=== PATIENT | female | born 1970 | race Caucasian/White ===

== ENCOUNTER 2016-05-17 05:27 | Emergency (ER) | payer MEDICARE, OTHER ==
[2016-05-17] MEDS ORDERED: NS 0.9% 1000 ML* 1,000 ML IV ONE (06:01)
[2016-05-17] MEDS ORDERED: HYDROmorphone* 1 MG/ML 1 ML SYR IV ONE ×3 (06:01→09:30)
--- NOTE | 2016-05-17 06:22 | ED ---
Hai Curry Benjamin, scribed for Ricardo Manzano MD on 05/17/16 at 0604 . Headache - HPI Summary HPI Summary: 45yo female c/o migraine like MEZA since . Pt sometimes get intractable migraines and pt usually takes Imitrex for her pain. Pt also felt nauseous but now nausea is gone. also photophobic. - History Of Current Complaint Chief Complaint: EDHeadache Stated Complaint: HEADACHE Time Seen by Provider: 05/17/16 05:58 Hx Obtained From: Patient Onset/Duration: Gradual Onset, Started days ago, Still Present Initially Headache Was: Severe Currently Pain Is: Severe Timing: Constant Character: Migraine Location of Headache: Diffuse Aggravating Factor: Bright Lights Allevating Factors: Nothing Associated Signs And Symptoms: Nausea - Allergies/Home Medications Allergies/Adverse Reactions: Allergies Allergy/AdvReac Type Severity Reaction Status Date / Time Tramadol Allergy Intermediate joint Verified 05/17/16 05:35 swelling Diphenhydramine Allergy extreme Verified 05/17/16 05:35 [From Benadryl] skin sensitivity Ciprofloxacin [From Cipro] AdvReac Intermediate Abdominal Verified 05/17/16 05: 35 Pain Gabapentin [From Neurontin] AdvReac Intermediate muscles Verified 05/17/16 05:35 burning NSAIDs AdvReac Intermediate gastritis Verified 05/17/16 05:35 Pregabalin [From Lyrica] AdvReac Intermediate muscles Verified 05/17/16 05:35 burning Ketorolac Tromethamine AdvReac Muscle Ache Verified 05/17/16 05:35 [From Toradol] PMH/Surg Hx/FS Hx/Imm Hx Endocrine/Hematology History: Reports: Hx Thyroid Disease Denies: Hx Diabetes Cardiovascular History: Denies: Hx Hypertension, Hx Pacemaker/ICD Respiratory History: Reports: Hx Asthma Denies: Hx Chronic Obstructive Pulmonary Disease (COPD) GI History: Denies: Hx Ulcer History: Reports: Other Problems/Disorders - stress incontinence Denies: Hx Renal Disease Musculoskeletal History: Denies: Hx Rheumatoid Arthritis, Hx Osteoporosis, Hx Scoliosis Sensory History: Denies: Hx Hearing Aid Neurological History: Reports: Hx Headaches - migranes, Hx Migraine, Other Neuro Impairments/Disorders - CHRONIC MIGRAINES Psychiatric History: Reports: Hx Anxiety, Hx Depression Denies: Hx Panic Disorder - Surgical History Surgery Procedure, Year, and Place: bladder surgery, HYSTERECTOMY, LUMP REMOVED RT BREAST ATYPICAL,APPY 2006 - Immunization History Date of Tetanus Vaccine: pt states unsure Date of Influenza Vaccine: none Infectious Disease History: No Infectious Disease History: Denies: Hx Clostridium Difficile, Hx Hepatitis, Hx Human Immunodeficiency Virus (HIV), Hx of Known/Suspected MRSA, Hx Shingles, Hx Tuberculosis, Traveled Outside the [place] in Last 30 Days - Family History Known Family History: Negative: Cardiac Disease, Diabetes - Social History Alcohol Use: None Substance Use Type: Reports: None Smoking Status (MU): Former Smoker Review of Systems Constitutional: Negative Positive: Photophobia ENT: Negative Cardiovascular: Negative Respiratory: Negative Positive: Nausea. Negative: Abdominal Pain Genitourinary: Negative Musculoskeletal: Negative Skin: Negative Positive: Headache Psychological: Normal All Other Systems Reviewed And Are Negative: Yes Physical Exam Triage Information Reviewed: Yes Vital Signs On Initial Exam: Initial Vitals Temp Pulse Resp BP Pulse Ox 96.9 F 69 18 98/75 100 05/17/16 05:35 05/17/16 05:35 05/17/16 05:35 05/17/16 05:35 05/17/16 05:35 Vital Signs Reviewed: Yes Appearance: Positive: Well-Appearing, Pain Distress - mild discomfort, mild photophobia Skin: Positive: Warm Head/Face: Positive: Normal Head/Face Inspection. Negative: Temporal Artery Tenderness Eyes: Positive: EOMI, KEKE, Conjunctiva Clear ENT: Positive: Hearing grossly normal Neck: Positive: Supple, Nontender Respiratory/Lung Sounds: Positive: Breath Sounds Present Cardiovascular: Positive: RRR Abdomen Description: Positive: Nontender, Soft Bowel Sounds: Positive: Present Musculoskeletal: Positive: Strength/ROM Intact Neurological: Positive: Sensory/Motor Intact, Alert, Oriented to Person Place, Time Diagnostics - Vital Signs Vital Signs Temp Pulse Resp BP Pulse Ox 05/17/16 05:35 96.9 F 69 18 98/75 100 - Laboratory Result Diagrams: 05/17/16 07:34 05/17/16 07:34 Lab Statement: Any lab studies that have been ordered have been reviewed, and results considered in the medical decision making process. Re-Evaluation - Re-Evaluation First Eval Change: Improved Headache Course/Dx - Diagnoses Provider Diagnoses: MIGRAINE HEADACHE Discharge - Discharge Plan Condition: Stable Disposition: HOME Patient Education Materials: Migraine Headache (ED) Referrals: Ilana Decker MD [Primary Care Provider] - 2 Days Additional Instructions: Please follow-up with your primary care physician. The documentation as recorded by the Hai dave Benjamin accurately reflects the service I personally performed and the decisions made by me, Ricardo Manzano MD.
[2016-05-17] MEDS ORDERED: Ondansetron INJ* 2 MG/ML VIAL IV ONE ×2 (07:31→09:30)
[2016-05-17 07:43] LABS: Hematocrit 38 % (35-47); Hemoglobin 13.1 g/dl (12.0-16.0); Mean Corpuscular HGB Conc 34 g/dl (31-36); Mean Corpuscular Hemoglobin 33 pg (27-31); Mean Corpuscular Volume 97 fL (80-97); Mean Platelet Volume 9 um3 (7.4-10.4); Red Blood Count 3.93 10^6/ul (4.0-5.4); Red Cell Distribution Width 13 % (10.5-15); White Blood Count 5.1 10^3/ul (3.5-10.8)
[2016-05-17 08:00] LABS: Albumin 3.4 g/dL (3.2-5.2); BUN/Creatinine Ratio 19.7 (8-20); Calcium 7.7 mg/dL (8.6-10.3); EGFR African American 114.5 (>60); Potassium 3.6 mmol/L (3.5-5.0); Total Bilirubin 0.3 mg/dL (0.2-1.0); Total Protein 5.4 g/dL (6.4-8.9)
[2016-05-17] MEDS ORDERED: Magnesium Sulfate 1 GM IV* 1 GM/100 ML BAG IV ONE (09:12)
[2016-05-17 11:07] VITALS: BP 127/91
--- NOTE | 2016-05-17 12:58 | CONSULT ---
Consult Consult: Ms. Sanchez presented with her typical migraine. She had slow improvement with her treatment-plan medications and was D/C'd in stable condition with a diagnosis of migraine MEZA.
== END 2016-05-17 11:01 | disposition home or self-care (01) ==
LOC: ED 05:27
DX: G43.909 Migraine, unspecified, not intractable, without status migrainosus (principal); H53.149 Visual discomfort, unspecified; Z87.891 Personal history of nicotine dependence; R11.0 Nausea
CPT/HCPCS: 36415; 80053; 85025; 96374; 96376; 99283; J1170

== ENCOUNTER 2016-09-28 20:40 | Emergency (ER) | payer MEDICARE ==
[2016-09-28 20:45] VITALS: BP 152/87
--- NOTE | 2016-09-28 22:17 | ED ---
Headache - HPI Summary HPI Summary: 45 female presents with migraine that began this morning and has become worse throughout the day. She states she has chronic migraines and follows up with Dr Silvestre. Was actually seen at Dr Rodriguez's office today for a follow up appointment. Patient states she had the migraine there and has tried taking her medications at home including fiorcet and imitrex. She took two with last dose being around 7 without relief. Patient also took prochlormethazine for nausea as she vomited once. Has not vomited since. She is photophobic. States this migraine is typical compared to others. No recent trauma or injury. No visual changes. Does have an aura consisting of language changes. She states she has protocol written by Dr Silvestre for ED visits and abortive medications. She also complains of an upset stomach. No other complaints or injuries at this time. - History Of Current Complaint Chief Complaint: EDHeadache Stated Complaint: MIGRAINE Time Seen by Provider: 09/28/16 21:39 Hx Obtained From: Patient Onset/Duration: Sudden Onset, Started hours ago, Still Present, Worse Since Initially Headache Was: Initial Pain Scale(0-10)= - 9 Currently Pain Is: Current Pain Scale(0-10)= - 8 Timing: Constant Character: Throbbing, Typical Headache, Migraine Location of Headache: Frontal, Occipital Aggravating Factor: Nothing - weather, Exertion, Position Change, Bright Lights Allevating Factors: Nothing Associated Signs And Symptoms: Nausea, Vomiting - Allergies/Home Medications Allergies/Adverse Reactions: Allergies Allergy/AdvReac Type Severity Reaction Status Date / Time Tramadol Allergy Intermediate joint Verified 09/28/16 20:48 swelling Diphenhydramine Allergy extreme Verified 09/28/16 20:48 [From Benadryl] skin sensitivity Ciprofloxacin [From Cipro] AdvReac Intermediate Abdominal Verified 09/28/16 20: 48 Pain Gabapentin [From Neurontin] AdvReac Intermediate muscles Verified 09/28/16 20:48 burning NSAIDs AdvReac Intermediate gastritis Verified 09/28/16 20:48 Pregabalin [From Lyrica] AdvReac Intermediate muscles Verified 09/28/16 20:48 burning Ketorolac Tromethamine AdvReac Muscle Ache Verified 09/28/16 20:48 [From Toradol] PMH/Surg Hx/FS Hx/Imm Hx Endocrine/Hematology History: Reports: Hx Thyroid Disease Denies: Hx Diabetes Cardiovascular History: Denies: Hx Hypertension, Hx Pacemaker/ICD Respiratory History: Reports: Hx Asthma Denies: Hx Chronic Obstructive Pulmonary Disease (COPD) GI History: Denies: Hx Ulcer History: Reports: Other Problems/Disorders - stress incontinence Denies: Hx Renal Disease Musculoskeletal History: Denies: Hx Rheumatoid Arthritis, Hx Osteoporosis, Hx Scoliosis Sensory History: Denies: Hx Hearing Aid Neurological History: Reports: Hx Headaches - migraines, Hx Migraine, Other Neuro Impairments/Disorders - CHRONIC MIGRAINES Psychiatric History: Reports: Hx Anxiety, Hx Depression, Hx Bipolar Disorder Denies: Hx Panic Disorder - Surgical History Surgery Procedure, Year, and Place: bladder surgery, HYSTERECTOMY, LUMP REMOVED RT BREAST ATYPICAL,APPY 2006 - Immunization History Date of Tetanus Vaccine: pt states unsure Date of Influenza Vaccine: none Infectious Disease History: Denies: Hx Clostridium Difficile, Hx Hepatitis, Hx Human Immunodeficiency Virus (HIV), Hx of Known/Suspected MRSA, Hx Shingles, Hx Tuberculosis, Traveled Outside the [place] in Last 30 Days - Family History Known Family History: Negative: Cardiac Disease, Diabetes - Social History Alcohol Use: None Substance Use Type: Reports: None Smoking Status (MU): Former Smoker Review of Systems Constitutional: Negative Positive: Photophobia ENT: Negative Cardiovascular: Negative Respiratory: Negative Positive: Vomiting, Nausea Musculoskeletal: Negative Positive: Headache All Other Systems Reviewed And Are Negative: Yes Physical Exam Triage Information Reviewed: Yes Vital Signs On Initial Exam: Initial Vitals Temp Pulse Resp BP Pulse Ox 96.8 F 80 16 152/87 98 09/28/16 20:40 09/28/16 20:40 09/28/16 20:40 09/28/16 20:40 09/28/16 20:40 elevated BP noted, compared to previous visits and normal range. Vital Signs Reviewed: Yes Appearance: Positive: Well-Appearing - laying holding head with light off, Pain Distress - moderate Skin: Positive: Warm, Skin Color Reflects Adequate Perfusion, Dry. Negative: Cold, Numb, Cyanosis @ Head/Face: Positive: Normal Head/Face Inspection Eyes: Positive: Normal, EOMI, KEKE, Conjunctiva Clear ENT: Positive: Normal ENT inspection, Hearing grossly normal, Pharynx normal, TMs normal Neck: Positive: Supple, Nontender Respiratory/Lung Sounds: Positive: Clear to Auscultation, Breath Sounds Present. Negative: Rales, Rhonchi, Wheezes Cardiovascular: Positive: Normal, RRR, Pulses are Symmetrical in both Upper and Lower Extremities. Negative: Murmur, Rub Abdomen Description: Positive: Nontender, Soft Bowel Sounds: Positive: Present Musculoskeletal: Positive: Normal, Strength/ROM Intact Neurological: Positive: Normal - normal neuro exam, normal memory and concentration, Sensory/Motor Intact, Alert, Oriented to Person Place, Time, CN Intact II-III, Reflexes Intact, NV Bundle Intact Distally, Normal Gait Psychiatric: Positive: Affect/Mood Appropriate AVPU Assessment: Alert - [place] Coma Scale Best Eye Response: 4 - Spontaneous Best Motor Response: 6 - Obeys Commands Best Verbal Response: 5 - Oriented Diagnostics - Vital Signs Vital Signs Temp Pulse Resp BP Pulse Ox 09/28/16 20:40 96.8 F 80 16 152/87 98 - Laboratory Lab Statement: Any lab studies that have been ordered have been reviewed, and results considered in the medical decision making process. Re-Evaluation - Re-Evaluation First Eval Re-Evaluation Time: 11:30 Change: Improved - patient symptoms improved Headache Course/Dx - Course Course Of Treatment: given pain medication as per protocol written by Dr Silvestre. patient had relief. will be d/c home. has medications to take at home, follow up with Dr Silvestre. Aware of worsening signs and symptoms to watch out for. - Diagnoses Differential Diagnosis/HQI/PQRI: Migraine, Sinus Headache, Tension Headache Provider Diagnoses: Migraine Discharge - Discharge Plan Condition: Stable Disposition: HOME Patient Education Materials: Migraine Headache (ED) Additional Instructions: Continue taking medications as prescribed at home. Follow up with Dr Silvestre. Drink plenty of fluids and get plenty of rest. Return if new or worsening symptoms occur.
[2016-09-28] MEDS ORDERED: HYDROmorphone* 2 MG/ML 1 ML SYR IV SLOW PU ONE (22:18)
[2016-09-28] MEDS ORDERED: NS 0.9% 1000 ML* 1,000 ML IV ONE (22:19)
[2016-09-28] MEDS ORDERED: Pantoprazole IV* 40 MG IV ONE (22:19)
[2016-09-28] MEDS ORDERED: Ondansetron INJ* 2 MG/ML VIAL IV ONE (22:20)
[2016-09-29] MEDS ORDERED: HYDROmorphone* 1 MG/ML 1 ML SYR IV SLOW PU ONE (00:18)
== END 2016-09-29 01:16 | disposition home or self-care (01) ==
LOC: ED 20:40
DX: G43.909 Migraine, unspecified, not intractable, without status migrainosus (principal); R11.2 Nausea with vomiting, unspecified; E07.9 Disorder of thyroid, unspecified; J45.909 Unspecified asthma, uncomplicated; F41.9 Anxiety disorder, unspecified; F32.9 Major depressive disorder, single episode, unspecified; Z90.710 Acquired absence of both cervix and uterus; Z88.5 Allergy status to narcotic agent; Z88.1 Allergy status to other antibiotic agents; Z88.6 Allergy status to analgesic agent; Z88.8 Allergy status to other drugs, medicaments and biological substances; Z87.891 Personal history of nicotine dependence
CPT/HCPCS: 96361; 96374; 96375; 99283; J1170; J2405

== ENCOUNTER → 2016-12-08 11:00 | Emergency (ER) | payer MEDICARE ==
[~2016-12-08 11:00] MED LIST: Dexamethasone IV* 4 MG/ML 5 ML VIAL (20 MG) IVPB ONE; HYDROmorphone INJ* 1 MG/ML CARPUJECT SYRINGE IV SLOW PU ONE; Magnesium Sulfate 1 GM IV* 1 GM/100 ML BAG IV ONE
[2016-12-08] MEDS: NS 0.9% 1000 ML* 2,000 ML IV ONE ×2 (11:45→12:44)
[2016-12-08 15:06] VITALS: BP 106/72
--- NOTE | 2016-12-09 16:20 | ED ---
Jodi Curry Edward, scribed for Dru Bhatt MD on 12/08/16 at 1115 . Headache - HPI Summary HPI Summary: 46 y/o female presents to ED c/o constant, severe migraine MEZA starting three nights ago. The MEZA is not alleviated with medication. The MEZA is aggravated with bright lights and loud sounds. Associated sx: N/V this morning, sore all over, photophobia. Denies fever. PMHx migraine MEZA. Pt was sent to the ED by Dr. Rodriguez (neurologist). Dr. Rodriguez recommeded we treat the pt with fluids, 1 g Mg and 1 mg Dilaudid - History Of Current Complaint Chief Complaint: EDHeadache Stated Complaint: HEADACHE Time Seen by Provider: 12/08/16 11:08 Hx Obtained From: Patient Onset/Duration: Started days ago Initially Headache Was: Severe Currently Pain Is: Severe Timing: Constant Character: Migraine Aggravating Factor: Bright Lights, Other - Loud sounds Allevating Factors: Nothing Associated Signs And Symptoms: Nausea, Vomiting - Allergies/Home Medications Allergies/Adverse Reactions: Allergies Allergy/AdvReac Type Severity Reaction Status Date / Time Tramadol Allergy Intermediate joint Verified 09/28/16 20:48 swelling Diphenhydramine Allergy extreme Verified 09/28/16 20:48 [From Benadryl] skin sensitivity Ciprofloxacin [From Cipro] AdvReac Intermediate Abdominal Verified 09/28/16 20: 48 Pain Gabapentin [From Neurontin] AdvReac Intermediate muscles Verified 09/28/16 20:48 burning NSAIDs AdvReac Intermediate gastritis Verified 09/28/16 20:48 Pregabalin [From Lyrica] AdvReac Intermediate muscles Verified 09/28/16 20:48 burning Ketorolac Tromethamine AdvReac Muscle Ache Verified 09/28/16 20:48 [From Toradol] PMH/Surg Hx/FS Hx/Imm Hx Previously Healthy: No Endocrine/Hematology History: Reports: Hx Thyroid Disease Denies: Hx Diabetes Cardiovascular History: Denies: Hx Hypertension, Hx Pacemaker/ICD Respiratory History: Reports: Hx Asthma Denies: Hx Chronic Obstructive Pulmonary Disease (COPD) GI History: Denies: Hx Ulcer History: Reports: Other Problems/Disorders - stress incontinence Denies: Hx Renal Disease Musculoskeletal History: Denies: Hx Rheumatoid Arthritis, Hx Osteoporosis, Hx Scoliosis Sensory History: Denies: Hx Hearing Aid Neurological History: Reports: Hx Headaches - migraines, Hx Migraine, Other Neuro Impairments/Disorders - CHRONIC MIGRAINES Psychiatric History: Reports: Hx Anxiety, Hx Depression, Hx Bipolar Disorder Denies: Hx Panic Disorder - Surgical History Surgery Procedure, Year, and Place: bladder surgery, HYSTERECTOMY, LUMP REMOVED RT BREAST ATYPICAL,APPY 2006 - Immunization History Date of Tetanus Vaccine: pt states unsure Date of Influenza Vaccine: none Infectious Disease History: No Infectious Disease History: Denies: Hx Clostridium Difficile, Hx Hepatitis, Hx Human Immunodeficiency Virus (HIV), Hx of Known/Suspected MRSA, Hx Shingles, Hx Tuberculosis, Traveled Outside the [place] in Last 30 Days - Family History Known Family History: Negative: Cardiac Disease, Diabetes - Social History Alcohol Use: None Hx Substance Use: No Substance Use Type: Reports: None Hx Tobacco Use: Yes Smoking Status (MU): Former Smoker Review of Systems Constitutional: Negative Eyes: Negative ENT: Negative Cardiovascular: Negative Respiratory: Negative Positive: Vomiting, Nausea Genitourinary: Negative Musculoskeletal: Negative Skin: Negative Positive: Headache Psychological: Normal All Other Systems Reviewed And Are Negative: Yes Physical Exam - Summary Physical Exam Summary: VITAL SIGNS: Reviewed. GENERAL: ~Patient is a well-developed and nourished female who is lying comfortable in the stretcher. ~Patient is not in any acute respiratory distress. HEAD AND FACE: No signs of trauma. ~No ecchymosis, hematomas or skull depressions. No sinus tenderness. EYES: PERRLA, EOMI x 2, No injected conjunctiva, no nystagmus. No photophobia. EARS: Hearing grossly intact. Ear canals and tympanic membranes are within normal limits. MOUTH: Oropharynx within normal limits. NECK: Supple, trachea is midline, no adenopathy, no JVD, no carotid bruit, no c- spine tenderness, neck with full ROM. No meningeal signs, no Kernig's or brudzinskis signs. CHEST: Symmetric, no tenderness at palpation LUNGS: Clear to auscultation bilaterally. No wheezing or crackles. CVS: Regular rate and rhythm, S1 and S2 present, no murmurs or gallops appreciated. ABDOMEN: Soft, non-tender. No signs of distention. No rebound no guarding, and no masses palpated. Bowel sounds are normal. EXTREMITIES: FROM in all major joints, no edema, no cyanosis or clubbing. NEURO: Alert and oriented x 3. No acute neurological deficits. Speech is normal and follows commands. SKIN: Dry and warm Triage Information Reviewed: Yes Vital Signs On Initial Exam: Initial Vitals Temp Pulse Resp BP Pulse Ox 98.2 F 76 14 109/82 99 12/08/16 11:02 12/08/16 11:02 12/08/16 11:02 12/08/16 11:02 12/08/16 11:02 Vital Signs Reviewed: Yes Diagnostics - Vital Signs Vital Signs Temp Pulse Resp BP Pulse Ox 12/08/16 11:02 98.2 F 76 14 109/82 99 - Laboratory Lab Statement: Any lab studies that have been ordered have been reviewed, and results considered in the medical decision making process. Re-Evaluation - Re-Evaluation 1 Re-Evaluation Time: 13:05 Headache Course/Dx - Course Assessment/Plan: 46 y/o female presents to ED c/o constant, severe migraine MEZA starting three nights ago. The MEZA is not alleviated with medication. The MEZA is aggravated with bright lights and loud sounds. Associated sx: N/V this morning, sore all over, photophobia. Denies fever. PMHx migraine MEZA. Pt was sent to the ED by Dr. Rodriguez (neurologist). Initially pt comes in with acute exacerbation of migraine MEZA. After exam and interview, I offered recommended the medications for migraine MEZA treatment, including Reglan, Toradol, Benadryl, Imitrex. However the pt declined. The pt reports that the only medication she takes is 1 g Mg and 2 mg dilaudid. To my understanding dilaudid is not indicated for treatment of migraine MEZA. Pt is not very happy, therefore she requested we speak with Dr. Rodriguez, the pts neurologist for recommended treatment of migraine MEZA. At this point, I discussed with Dr. Rodriguez who recommended we give 1 mg Mg and 1 mg Dilaudid. After an hour, the pt requests a second dose of dialudid, and Dr. Rodriguez agrees to give a second dose. Pt also requested 10 mg decadron, which Dr. Rodriguez also agreed to. Pt was hydrated with 2 L fluids. At this time, the pt feels better and requested d/c with f/u with [facility]. Pt is hemodynamically stable and A&Ox3. - Diagnoses Differential Diagnosis/HQI/PQRI: Migraine, Sinus Headache, Tension Headache, Other Provider Diagnoses: Migraine headache - Physician Notifications Discussed Care Of Patient With: Tasia Rodriguez Time Discussed With Above Provider: 12:43 - Agrees to treat pt with second dose of Dilaudid Discharge - Discharge Plan Condition: Stable Disposition: HOME Patient Education Materials: Migraine Headache (ED) Referrals: Tasia Rodriguez MD [Medical Doctor] - 3 Days (PLEASE F/U IN 2-3 DAYS) The documentation as recorded by the Jodi dave Edward accurately reflects the service I personally performed and the decisions made by Miller fitch Walter, MD.
== END | disposition home or self-care (01) ==
LOC: ED 11:00
DX: G43.909 Migraine, unspecified, not intractable, without status migrainosus (principal); R11.2 Nausea with vomiting, unspecified; M79.1 Myalgia; E07.9 Disorder of thyroid, unspecified; J45.909 Unspecified asthma, uncomplicated; N39.3 Stress incontinence (female) (male); F41.9 Anxiety disorder, unspecified; F32.9 Major depressive disorder, single episode, unspecified; Z90.710 Acquired absence of both cervix and uterus; Z88.6 Allergy status to analgesic agent; Z88.1 Allergy status to other antibiotic agents; Z88.5 Allergy status to narcotic agent; Z88.8 Allergy status to other drugs, medicaments and biological substances; Z87.891 Personal history of nicotine dependence
CPT/HCPCS: 96361; 96365; 96366; 96375; 96376; 99284; J1100; J1170; J3475

== ENCOUNTER 2017-09-07 14:49 | Observation (INO) | payer MEDICARE ==
[2017-09-07] MEDS ORDERED: HYDROmorphone INJ* 1 MG/ML CARPUJECT SYRINGE IV ONE (15:12)
[2017-09-07] MEDS ORDERED: NS 0.9% 1000 ML* 2,000 ML IV ONE (15:12)
[2017-09-07] MEDS ORDERED: HYDROmorphone INJ* 2 MG/ML CARPUJECT SYRINGE ONE (15:17)
[2017-09-07] MEDS ORDERED: Vancomycin(*) 1,000 MG in NS 0.9% 250 ML* 250 ML IVPB ONE (15:18)
--- NOTE | 2017-09-07 16:12 | RAD ---
INDICATION: Fever COMPARISON: February 19, 2011 TECHNIQUE: An AP portable view obtained at 1555 hours is submitted. FINDINGS: Bones/Soft Tissues: There are no acute bony findings. Cardiomediastinal: The cardiomediastinal silhouette is normal. Lungs: There are no infiltrates. Pleura: There are no pleural effusions. Other: None IMPRESSION: NORMAL CHEST
[2017-09-07 16:32] LABS: ABS Basophils 0 10^3/ul (0-0.2); ABS Eosinophils 0 10^3/ul (0-0.6); ABS Monocytes 0.5 10^3/ul (0-0.8); ABS Neutrophils 3.5 10^3/ul (1.5-7.7); ABS Nucleated RBC 0 10^3/ul; Eosinophil % 0.6 % (0-6); Hematocrit 37 % (35-47); Hemoglobin 12.9 g/dl (12.0-16.0); Lymphocyte % 19.9 % (25-47); Mean Corpuscular HGB Conc 35 g/dl (31-36); Mean Corpuscular Hemoglobin 34 pg (27-31); Mean Corpuscular Volume 96 fL (80-97); Mean Platelet Volume 7.8 um3 (7.4-10.4); Nucleated Red Blood Cells % 0.1; Platelet Count 135 10^3/ul (150-450); Red Blood Count 3.86 10^6/ul (4.00-5.40); Red Cell Distribution Width 12 % (10.5-15); White Blood Count 5.1 10^3/ul (3.5-10.8)
[2017-09-07 16:49] LABS: EGFR Non-African American 83.2 (>60)
[2017-09-07 16:52] LABS: INR 0.91 (0.77-1.02)
[2017-09-07 16:55] LABS: Urine Appearance Clear; Urine Blood Negative (Negative); Urine Color Yellow; Urine Ketones Negative (Negative); Urine Protein Negative (Negative); Urine Specific Gravity 1.005 (1.010-1.030); Urine Urobilinogen Negative (Negative)
[2017-09-07] MEDS ORDERED: HYDROmorphone INJ* 2 MG/ML CARPUJECT SYRINGE IV SLOW PU ONE (17:45)
[2017-09-07] MEDS ORDERED: Lidocaine 1%* 5 ML VIAL INJ ONE (17:55)
[2017-09-07] MEDS ORDERED: cefTRIAXone(*) 1 GM in NS 0.9% 50 ML* 50 ML IVPB ONE (17:56)
[2017-09-07] MEDS ORDERED: Acyclovir IV(*) 600 MG in NS 0.9% 100 ML* 100 ML IVPB SCH (18:00)
[2017-09-07] MEDS ORDERED: ALPRAZolam TAB* 0.25 MG PO ONE (19:07)
[2017-09-07] MEDS ORDERED: Metoclopramide IV* 5 MG/ML 2 ML VIAL IV ONE (19:08)
--- NOTE | 2017-09-07 19:38 | ED ---
Christine Curry Jade, scribed for Glen Nichols MD on 09/07/17 at 1510 . HPI Febrile Illness - HPI Summary HPI Summary: Pt is a 46 y/o female who presents to the ED c/o fever and skin infection. She states she went to 3 days ago for an infection on her left shoulder, where she was prescribed Keflex. Pt had a bad reaction to Keflex, and came here on for this reaction. Here, she was given Doxycycline. Today she now has right-sided neck stiffness, fever, chills, and a headache. Pt has a PMHx of migraines, but states this headache is not a migraine. She took Tylenol for her discomfort. Pt is prescribed Promethazine, and took one while in the ED. - History of Current Complaint Chief Complaint: EDFever Time Seen by Provider: 09/07/17 14:57 Hx Obtained From: Patient Onset/Duration: Started Days Ago - 3 Timing: Constant Current Severity: Moderate Pain Intensity: 7 Pain Scale Used: 0-10 Numeric Aggravating Factors: Other: - Keflex Alleviating Factors: Nothing Associated Signs and Symptoms: Chills, Headache, Stiff Neck - Allergy/Home Medications Allergies/Adverse Reactions: Allergies Allergy/AdvReac Type Severity Reaction Status Date / Time morphine Allergy MAKES Verified 09/05/17 23:58 LIMBS GO NUMB diphenhydramine AdvReac Intermediate Numbness Verified 09/05/17 23:58 [From Benadryl] And Tingling tramadol AdvReac Intermediate Muscle Ache Verified 09/05/17 23:58 ciprofloxacin [From Cipro] AdvReac Abdominal Verified 09/05/17 23:58 Pain gabapentin [From Neurontin] AdvReac Muscle Ache Verified 09/05/17 23:58 ketorolac [From Toradol] AdvReac Muscle Ache Verified 09/05/17 23:58 NSAIDS (Non-Steroidal AdvReac GI Upset Verified 09/05/17 23:58 Anti-Inflamma pregabalin [From Lyrica] AdvReac Muscle Ache Verified 09/05/17 23:58 PMH/Surg Hx/FS Hx/Imm Hx Endocrine/Hematology History: Reports: Hx Thyroid Disease Denies: Hx Diabetes Cardiovascular History: Denies: Hx Hypertension, Hx Pacemaker/ICD Respiratory History: Reports: Hx Asthma Denies: Hx Chronic Obstructive Pulmonary Disease (COPD) GI History: Denies: Hx Ulcer History: Reports: Other Problems/Disorders - stress incontinence Denies: Hx Renal Disease Musculoskeletal History: Denies: Hx Rheumatoid Arthritis, Hx Osteoporosis, Hx Scoliosis Sensory History: Denies: Hx Hearing Aid Neurological History: Reports: Hx Migraine - Chronic Psychiatric History: Reports: Hx Anxiety, Hx Depression, Hx Bipolar Disorder Denies: Hx Panic Disorder - Surgical History Surgery Procedure, Year, and Place: bladder surgery, HYSTERECTOMY, LUMP REMOVED RT BREAST ATYPICAL,APPY 2006 - Immunization History Date of Tetanus Vaccine: recent Date of Influenza Vaccine: none Infectious Disease History: No Infectious Disease History: Denies: Hx Clostridium Difficile, Hx Hepatitis, Hx Human Immunodeficiency Virus (HIV), Hx of Known/Suspected MRSA, Hx Shingles, Hx Tuberculosis, Traveled Outside the [place] in Last 30 Days - Family History Known Family History: Negative: Cardiac Disease, Diabetes - Social History Alcohol Use: None Hx Substance Use: No Substance Use Type: Reports: None Hx Tobacco Use: Yes Smoking Status (MU): Former Smoker Review of Systems Positive: Fever, Chills, Other - stiff neck Positive: Other - Left shoulder infection Positive: Headache All Other Systems Reviewed And Are Negative: Yes Physical Exam - Summary Physical Exam Summary: General: mildly ill-appearing, no pain distress Skin: warm, color reflects adequate perfusion, dry. Erythema 10 cm in diameter over left shoulder. Head: normal Eyes: EOMI, KEKE ENT: normal Neck: supple, nontender Respiratory: CTA, breath sounds present Cardiovascular: RRR Abdomen: soft, nontender Bowel: present Musculoskeletal: normal, strength/ROM intact Neurological: sensory/motor intact, A&O x3 Psychological: affect/mood appropriate Triage Information Reviewed: Yes Vital Signs On Initial Exam: Initial Vitals Temp Pulse Resp BP Pulse Ox 100.9 F 106 18 135/86 96 09/07/17 14:51 09/07/17 14:51 09/07/17 14:51 09/07/17 14:51 09/07/17 14:51 Vital Signs Reviewed: Yes Procedures - Lumbar Puncture Midline Position: Sitting Aseptic Technique: Lidocaine Anesthesia Used: 1.0% Lido Spinal Needle Used: 22 Gauge Lumbar Puncture Note: informed consent done Diagnostics - Vital Signs Vital Signs Temp Pulse Resp BP Pulse Ox 09/07/17 14:51 100.9 F 106 18 135/86 96 - Laboratory Lab Results: Lab Results 09/07/17 09/07/17 09/07/17 Range/Units 16:16 16:16 16:16 WBC 5.1 (3.5-10.8) 10^3/ul RBC 3.86 L (4.00-5.40) 10^6/ul Hgb 12.9 (12.0-16.0) g/dl Hct 37 (35-47) % MCV 96 (80-97) fL MCH 34 H (27-31) pg MCHC 35 (31-36) g/dl RDW 12 (10.5-15) % Plt Count 135 L (150-450) 10^3/ul MPV 7.8 (7.4-10.4) um3 Neut % (Auto) 68.9 (38-83) % Lymph % (Auto) 19.9 L (25-47) % Barron % (Auto) 10.1 H (0-7) % Eos % (Auto) 0.6 (0-6) % Baso % (Auto) 0.5 (0-2) % Absolute Neuts (auto) 3.5 (1.5-7.7) 10^3/ul Absolute Lymphs (auto) 1.0 (1.0-4.8) 10^3/ul Absolute Monos (auto) 0.5 (0-0.8) 10^3/ul Absolute Eos (auto) 0 (0-0.6) 10^3/ul Absolute Basos (auto) 0 (0-0.2) 10^3/ul Absolute Nucleated RBC 0 10^3/ul Nucleated RBC % 0.1 INR (Anticoag Therapy) 0.91 (0.77-1.02) APTT 29.8 (26.0-36.3) seconds Sodium 136 (135-145) mmol/L Potassium 3.5 (3.5-5.0) mmol/L Chloride 104 (101-111) mmol/L Carbon Dioxide 26 (22-32) mmol/L Anion Gap 6 (2-11) mmol/L BUN 11 (6-24) mg/dL Creatinine 0.75 (0.51-0.95) mg/dL Est GFR ( Amer) 100.7 (>60) Est GFR (Non-Af Amer) 83.2 (>60) BUN/Creatinine Ratio 14.7 (8-20) Glucose 129 H (70-100) mg/dL Lactic Acid (0.5-2.0) mmol/L Calcium 8.6 (8.6-10.3) mg/dL Total Bilirubin 0.30 (0.2-1.0) mg/dL AST 19 (13-39) U/L ALT 15 (7-52) U/L Alkaline Phosphatase 46 (34-104) U/L Troponin I 0.00 (<0.04) ng/mL C-Reactive Protein 25.13 H (<8.01) mg/L Total Protein 6.4 (6.4-8.9) g/dL Albumin 3.8 (3.2-5.2) g/dL Globulin 2.6 (2-4) g/dL Albumin/Globulin Ratio 1.5 (1-3) Urine Color Urine Appearance Urine pH (5-9) Ur Specific [place] (1.010-1.030) Urine Protein (Negative) Urine Ketones (Negative) Urine Blood (Negative) Urine Nitrate (Negative) Urine Bilirubin (Negative) Urine Urobilinogen (Negative) Ur Leukocyte Esterase (Negative) Urine Glucose (Negative) 09/07/17 09/07/17 Range/Units 16:16 16:48 WBC (3.5-10.8) 10^3/ul RBC (4.00-5.40) 10^6/ul Hgb (12.0-16.0) g/dl Hct (35-47) % MCV (80-97) fL MCH (27-31) pg MCHC (31-36) g/dl RDW (10.5-15) % Plt Count (150-450) 10^3/ul MPV (7.4-10.4) um3 Neut % (Auto) (38-83) % Lymph % (Auto) (25-47) % Barron % (Auto) (0-7) % Eos % (Auto) (0-6) % Baso % (Auto) (0-2) % Absolute Neuts (auto) (1.5-7.7) 10^3/ul Absolute Lymphs (auto) (1.0-4.8) 10^3/ul Absolute Monos (auto) (0-0.8) 10^3/ul Absolute Eos (auto) (0-0.6) 10^3/ul Absolute Basos (auto) (0-0.2) 10^3/ul Absolute Nucleated RBC 10^3/ul Nucleated RBC % INR (Anticoag Therapy) (0.77-1.02) APTT (26.0-36.3) seconds Sodium (135-145) mmol/L Potassium (3.5-5.0) mmol/L Chloride (101-111) mmol/L Carbon Dioxide (22-32) mmol/L Anion Gap (2-11) mmol/L BUN (6-24) mg/dL Creatinine (0.51-0.95) mg/dL Est GFR ( Amer) (>60) Est GFR (Non-Af Amer) (>60) BUN/Creatinine Ratio (8-20) Glucose (70-100) mg/dL Lactic Acid 0.5 (0.5-2.0) mmol/L Calcium (8.6-10.3) mg/dL Total Bilirubin (0.2-1.0) mg/dL AST (13-39) U/L ALT (7-52) U/L Alkaline Phosphatase (34-104) U/L Troponin I (<0.04) ng/mL C-Reactive Protein (<8.01) mg/L Total Protein (6.4-8.9) g/dL Albumin (3.2-5.2) g/dL Globulin (2-4) g/dL Albumin/Globulin Ratio (1-3) Urine Color Yellow Urine Appearance Clear Urine pH 7.0 (5-9) Ur Specific [place] 1.005 L (1.010-1.030) Urine Protein Negative (Negative) Urine Ketones Negative (Negative) Urine Blood Negative (Negative) Urine Nitrate Negative (Negative) Urine Bilirubin Negative (Negative) Urine Urobilinogen Negative (Negative) Ur Leukocyte Esterase Negative (Negative) Urine Glucose Negative (Negative) Result Diagrams: 09/07/17 16:16 09/07/17 16:16 Lab Statement: Any lab studies that have been ordered have been reviewed, and results considered in the medical decision making process. - Radiology CXR Xray Interpretation: No Acute Changes - 15:11 NORMAL CHEST. ED physician reviewed radiology report. Radiology Interpretation Completed By: Radiologist - EKG 15:22 Cardiac Rate: NL - 81 bpm EKG Rhythm: Sinus Rhythm ST Segment: Normal Ectopy: None Course/Dx - Course Course Of Treatment: DISPOSITION PENDING AT SHIFT CHANGE. HOSPITALIST CONSULTED. - Diagnoses Provider Diagnoses: Cellulitis, Fever, Neck pain Discharge - Sign-Out/Discharge Documenting (check all that apply): Sign-Out Patient Signing out patient TO: Prashanth Morales - Discharge Plan Condition: Stable Referrals: Ilana Decker MD [Primary Care Provider] - - Billing Disposition and Condition Condition: STABLE The documentation as recorded by the Christine dave Jade accurately reflects the service I personally performed and the decisions made by , Glen Nichols MD.
[2017-09-07] MEDS ORDERED: oxyCODONE/Acetamin 5/325 MG* TAB PO PRN (22:57)
[2017-09-08] MEDS ORDERED: ESTRADIOL TRANSDERM SCH ×3 (00:15→01:10)
[2017-09-08] MEDS: oxyCODONE TAB* 5 MG TAB PO PRN ×5 (00:54→21:16)
[2017-09-08] MEDS: Butalb/Acetamin/Caff TAB* 1 TAB PO PRN ×4 (00:54→21:18)
[2017-09-08] MEDS ORDERED: [UNRECOGNIZED DRUG - OTHER] TRANSDERM SCH (01:10)
[2017-09-08] MEDS: ceFAZolin 500 MG VIAL(*) 500 MG in NS 0.9% 50 ML* 50 ML IVPB SCH ×3 (01:31→17:56)
--- NOTE | 2017-09-08 02:23 | ED ---
Masha Curry SooYoung, scribed for Prashanth Morales MD on 09/07/17 at 2132 . Progress - Progress Note Progress Note: 2109: At bedside with pt, discussing LP results and plans for admission. Pt is supine and c/o MEZA. Pt agreeable to admission. - Results/Orders Results/Orders: LP results: Fluid Source Cerebral spinal Fluid Volume 1.5 Fluid Color Colorless Fluid Appearance Clear Fluid WBC 1.5 Fluid RBC 0 Fluid Tot Cell Count 12 Fluid Neutrophils 8 Fluid Lymphocytes 67 Fluid Monocytes 25 CSF Cell Count Tube # 4 CSF Glucose 68 CSF Total Protein 36 Course/Dx - Course Course Of Treatment: DISPOSITION PENDING AT SHIFT CHANGE. HOSPITALIST CONSULTED. - Diagnoses Provider Diagnoses: Cellulitis, Fever, Neck pain - Provider Notifications Discussed Care Of Patient With: Kaiden Mandujano - Hospitalist Time Discussed With Above Provider: 21:15 Instructed by Provider To: Admit As Inpatient Discharge - Sign-Out/Discharge Documenting (check all that apply): Discharge/Admit/Transfer - admit, Receiving Sign-Out Receiving patient FROM: Glen Nichols - awaiting LP results - Discharge Plan Condition: Stable Disposition: ADMITTED TO [facility] Referrals: Ilana Decker MD [Primary Care Provider] - The documentation as recorded by the Masha dave SooYoung accurately reflects the service I personally performed and the decisions made by me, Prashanth Morales MD.
[2017-09-08] MEDS: Thyroid TAB* 30 MG PO SCH (05:02)
[2017-09-08 05:46] LABS: ABS Basophils 0 10^3/ul (0-0.2); ABS Eosinophils 0 10^3/ul (0-0.6); ABS Lymphocytes 1.3 10^3/ul (1.0-4.8); ABS Monocytes 0.5 10^3/ul (0-0.8); ABS Neutrophils 2.6 10^3/ul (1.5-7.7); ABS Nucleated RBC 0 10^3/ul; Eosinophil % 0.3 % (0-6); Hematocrit 40 % (35-47); Hemoglobin 13.8 g/dl (12.0-16.0); Lymphocyte % 28.5 % (25-47); Mean Corpuscular HGB Conc 35 g/dl (31-36); Mean Corpuscular Hemoglobin 33 pg (27-31); Mean Corpuscular Volume 96 fL (80-97); Nucleated Red Blood Cells % 0.1; Platelet Count 151 10^3/ul (150-450); Red Blood Count 4.16 10^6/ul (4.00-5.40); Red Cell Distribution Width 13 % (10.5-15); White Blood Count 4.5 10^3/ul (3.5-10.8)
--- NOTE | 2017-09-08 08:32 | HP ---
CC: Dr. Decker.* ADMISSION HISTORY AND PHYSICAL: DATE OF ADMISSION: 09/07/17. CHIEF COMPLAINT: Headache. HISTORY OF PRESENT ILLNESS: Ms. Sanchez is a 46-year-old woman with history of migraine headache who had an apparent insect bite in her left shoulder several days prior to admission. This became painful and red and led to a visit to her primary care doctor where she was started on Keflex for cellulitis. She then developed gastritis apparently from the Keflex and was seen in urgent care on , where she was switched to doxycycline for treatment of cellulitis. At this point, she has taken 2 pills of doxycycline, tolerated it well but she has had increasing pain in her neck, photophobia and this led her to come to the ER today. She has worsening headache, neck stiffness, no vomiting. She states that she has had neck stiffness in the past with migraines but this is entirely different phenomena to her. She denies any measured fevers, but she does not have a thermometer at home and felt feverish. 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 She states she sees Dr. Rodriguez for Neurology and there is a question of aseptic meningitis in the past related to HSV2. PAST SURGICAL HISTORY: Bladder surgery x3 and hysterectomy. MEDICATIONS: On admission are, 1. Xanax 0.25 t.i.d. p.r.n. 2. Fioricet with codeine 1 tab q.6 hours p.r.n. headache. 3. Estradiol topical. 4. Progesterone 1 tab daily. 5. Famciclovir 250 mg p.o. daily. 6. Lamictal 100 mg p.o. daily. 7. [place] Thyroid 30 mg p.o. daily. 8. Probiotic one tab p.o. daily. ALLERGIES: CEPHALEXIN, MORPHINE, DIPHENHYDRAMINE, TRAMADOL, CIPROFLOXACIN, KETOROLAC, GABAPENTIN, NSAIDS, PREGABALIN. SOCIAL HISTORY: She is disabled. She is single. She has no children. She does not smoke. No alcohol or drug use. FAMILY HISTORY: Notable for mother with depression, brother has alcohol and Asperger syndrome. REVIEW OF SYSTEMS: Patient denies any anorexia, weight loss. Recently, patient denies any chest pain or palpitations. She denies any cough or shortness of breath. Patient denies hematuria, dysuria. Patient has no visual complaints. No aura but does have photophobia. Patient denies any other rashes besides the left shoulder issue. PHYSICAL EXAMINATION GENERAL: She is alert, in no acute distress. VITAL SIGNS: Temperature is 38.3, pulse 72, respirations 15, blood pressure 131 /84, O2 sat 95%. HEENT: Head is normocephalic, atraumatic. Sclerae anicteric. Pupils equal and reactive to light and accommodation. Oropharynx is moist. No lesions. NECK: No JVD, no carotid bruit, no thyromegaly. LUNGS: Clear to auscultation and percussion bilaterally. HEART: Regular rate and rhythm without murmurs or gallops. ABDOMEN: Soft, nontender. Positive bowel sounds. No hepatosplenomegaly. EXTREMITIES: No peripheral edema. Dorsalis pedis 2+ bilaterally. SKIN EXAM : She has many tattoos on her arms. There is erythema surrounding a small ulcer on the left shoulder. The erythema difficult to distinguish from other colors in her tattoos, but appears to have extended into her left shoulder up into her neck. There is no tenderness. This is mild warmth. NEURO EXAM: Cranial nerves II through XII are intact. Motor strength is 5/5 throughout. She does have positive Brudzinski's sign. Negative for Kernig's sign. She is alert and oriented x3. DIAGNOSTIC STUDIES/LAB DATA: Sodium 136, potassium 3.5, chloride 104, bicarb 26, BUN 11, creatinine 0.75, glucose 129, calcium 8.6, albumin 3.8, AST 19, ALT 15, CRP 25.13, lactic acid 0.5, white count 5.1, hemoglobin 12.9, hematocrit 37% , platelets 135. INR 0.91, PTT 29.8. CSF glucose of 68, CSF total protein 36, cell count of CSF was 12 with 8% neutrophils, couple of lymphocytes and 25% monocytes. Chest x- ray was negative for infiltrates or effusions. ASSESSMENT AND PLAN: 1. A 46-year-old woman with cellulitis to her left shoulder following a tick bite and now presenting with potential meningismus. The left shoulder certainly has cellulitis that is not responding to outpatient treatment. The next step is considered to be an extension of the inflammation of the skin. She will be admitted and given IV Kefzol, which should be tolerated, as she has problems with oral cephalosporins, but not a true allergic reaction. The differential of meningismus following a insect bite would include Lyme disease, West Nile virus or other viral syndromes. The CSF is bland, not supporting encephalitis or tick borne disease. I will continue her on doxycycline for potential Lyme disease. 2. Fluid and electrolytes. She is euvolemic. 3. Code status. Full. 4. DVT prophylaxis. She will be on sequential compression devices while she is in hospital due to her estrogen use. [id number]/CPS #: [id number] [facility]
[2017-09-08] MEDS: FAMCICLOVIR 250 MG PO SCH (08:59)
[2017-09-08] MEDS: DOXYcycline CAP(*) 100 MG PO SCH ×2 (08:59→21:17)
[2017-09-08] MEDS: Lactobacillus Acidophilus* 1 TAB PO SCH (08:59)
[2017-09-08] MEDS: lamoTRIgine TAB(*) 100 MG PO SCH (08:59)
[2017-09-08] MEDS ORDERED: PROGESTERONE MICRONIZED 100 MG PO SCH (09:00)
[2017-09-08] MEDS: ALPRAZolam TAB* 0.25 MG PO PRN ×2 (10:20→18:43)
[2017-09-08] MEDS: [UNRECOGNIZED DRUG - MIXTURE] SCH (10:49)
--- NOTE | 2017-09-08 12:29 | PN ---
Subjective Date of Service: 09/08/17 Interval History: Patient seen and examined at bedside. Denies fever, chills, shortness of breath , chest discomfort, N/V/D. Pt states that she continues to have a headache, but it is improving. ROM of neck has improved. Reports that she often gets tension and a stiff neck with her migraines, but this was much worse then her normal neck stiffness. Pt also reports feeling very hot right now. She has a good appetite and is eating. She reports redness of her left shoulder for over a week , was started on cephalexin by per PCP and reports stomach upset with it and being changed to Doxy (I don't actually see where this was send to her pharmacy) . Pt states that she took 2 doses of the doxy before she came to the ED. Pt is requesting Lyme testing. Family History: Unchanged from Admission Social History: Unchanged from Admission Past Medical History: Unchanged from Admission Objective Active Medications: Acetaminophen/Butalbital/Caffeine (Fioricet Tab*) 1 tab PO Q6H PRN Reason: PAIN Alprazolam (Xanax Tab*) 0.25 mg PO TID PRN Reason: ANXIETY Doxycycline Hyclate (Vibramycin Cap(*)) 100 mg PO BID [facility] Estradiol ([place] Patch 0.075 Mg/Day*) 1 patch TRANSDERM Q84H [facility] Cefazolin Sodium 500 mg/ (Sodium Chloride) 50 mls @ 200 mls/hr IVPB Q8H [facility] Lactobacillus Rhamnosus (Lactobacillus Acidophilus*) 1 tab PO DAILY [facility] Lamotrigine (Lamictal Tab(*)) 100 mg PO DAILY [facility] Pto: (Famciclovir [ (Famvir] 250 Mg)) 250 mg PO DAILY [facility] Controlled Substance - Testosterone/Progesterone Custom Compound 1 dose .SEE ORDER DAILY [facility] Oxycodone HCl (Roxycodone Tab*) 10 mg PO Q4H PRN Reason: HEADACHE/DISCOMFORT Oxycodone/Acetaminophen (Percocet 5/325 Tab*) 1 tab PO Q4H PRN Reason: PAIN Thyroid (Thyroid Tab*) 30 mg PO 0600 [facility] Vital Signs - 8 hr 09/08/17 09/08/17 09/08/17 04:24 04:57 05:01 Temperature 97.6 F Pulse Rate 66 Respiratory 16 16 Rate Blood Pressure 82/59 98/60 (mmHg) O2 Sat by Pulse 98 Oximetry 09/08/17 09/08/17 09/08/17 07:13 07:27 07:42 Temperature Pulse Rate 75 Respiratory 18 18 16 Rate Blood Pressure 100/55 (mmHg) O2 Sat by Pulse 98 100 Oximetry 09/08/17 09/08/17 09/08/17 08:58 09:01 09:10 Temperature 98.2 F Pulse Rate Respiratory 18 18 Rate Blood Pressure (mmHg) O2 Sat by Pulse Oximetry 09/08/17 09/08/17 09/08/17 10:03 10:20 11:25 Temperature 98.1 F Pulse Rate 80 Respiratory 18 18 16 Rate Blood Pressure 110/68 (mmHg) O2 Sat by Pulse 98 Oximetry Oxygen Devices in Use Now: None Appearance: NAD, sitting up in bed Ears/Nose/Mouth/Throat: Mucous Membranes Moist Respiratory: Symmetrical Chest Expansion and Respiratory Effort, Clear to Auscultation Cardiovascular: NL Sounds; No Murmurs; No JVD, RRR Abdominal: NL Sounds; No Tenderness; No Distention Extremities: No Edema Skin: - - Erythema to left should, extending to upper chest and neck. Hard to full visualize the erythema due to tattoos Neurological: Alert and Oriented x 3, NL Muscle Strength and Tone Lines/Tubes/Other Access: Clean, Dry and Intact Peripheral IV - site benign Nutrition: Taking PO's Result Diagrams: 09/08/17 05:19 09/07/17 16:16 Additional Lab and Data: . Microbiology and Other Data: Microbiology 09/07/17 19:43 CSF Gram Stain (Tube 3) - Final Cerebral Spinal Fluid CSF Culture - Preliminary No Growth Day 1 Assess/Plan/Problems-Billing Assessment: Ms. Sanchez is a 46 yo female with PMH significant for depression and migraines who presented to the emergency room with complaints of headache and failure of outpatient treatment of cellulitis. - Patient Problems (1) Cellulitis of shoulder Code(s): L03.119 - CELLULITIS OF UNSPECIFIED PART OF LIMB SNOMED Code(s): 37033920 Comment: - Afebrile or no leukocytosis - Continues to have erythema from left shoulder that extends into neck and upper chest (hard to determine extent of erythma on arm and shoulder due to colored tattoos) - This is not an outpatient failure of doxy as she only received 2 doses prior to presentation - Continue doxycycline and Kefzol (2) Migraine headache Code(s): G43.909 - MIGRAINE, UNSP, NOT INTRACTABLE, WITHOUT STATUS MIGRAINOSUS SNOMED Code(s): 99455107 Comment: - With meningismus - LP, CSF unremarkable - Continues to have a headache, but full range of motion of neck today - Continue home medications - Will check Lyme serology (3) Depression Code(s): F32.9 - MAJOR DEPRESSIVE DISORDER, SINGLE EPISODE, UNSPECIFIED SNOMED Code(s): 42882835 Comment: - with associated anxiety - Continue home medications (4) Hypothyroidism Code(s): E03.9 - HYPOTHYROIDISM, UNSPECIFIED SNOMED Code(s): 38632473 Comment: - TSH in 06/2017 3.23 - Continue Thyroid (5) DVT prophylaxis Code(s): ACJ8408 - SNOMED Code(s): 371204897 Comment: - SCD's and encourage ambulation (6) Full code status Code(s): Z78.9 - OTHER SPECIFIED HEALTH STATUS SNOMED Code(s): 582692347 Status and Disposition: OBV to Inpatient. Discharge to home when medically stable, possibly in the morning.
[2017-09-09] MEDS: ceFAZolin 500 MG VIAL(*) 500 MG in NS 0.9% 50 ML* 50 ML IVPB SCH ×2 (03:01→10:39)
[2017-09-09] MEDS: Metoclopramide IV* 5 MG/ML 2 ML VIAL IV PRN ×2 (03:22→10:39)
[2017-09-09] MEDS ORDERED: Acetaminophen TAB* 325 MG PO PRN (04:09)
[2017-09-09] MEDS: Thyroid TAB* 30 MG PO SCH (05:49)
[2017-09-09] MEDS: Butalb/Acetamin/Caff TAB* 1 TAB PO PRN (06:57)
[2017-09-09] MEDS: oxyCODONE TAB* 5 MG TAB PO PRN (06:58)
[2017-09-09] MEDS ORDERED: NS 0.9% 1000 ML* 1,000 ML IV ONE (08:01)
[2017-09-09] MEDS ORDERED: Ondansetron SYRINGE* 4 MG/2 ML SYRINGE (from 40mg/20ml vial) IV ONE (08:02)
[2017-09-09] MEDS ORDERED: HYDROmorphone INJ* 2 MG/ML CARPUJECT SYRINGE IV SLOW PU ONE ×2 (08:02→10:14)
[2017-09-09] MEDS: ALPRAZolam TAB* 0.25 MG PO PRN (08:15)
[2017-09-09] MEDS: Lactobacillus Acidophilus* 1 TAB PO SCH (10:33)
[2017-09-09] MEDS: FAMCICLOVIR 250 MG PO SCH (10:33)
[2017-09-09] MEDS: lamoTRIgine TAB(*) 100 MG PO SCH (10:33)
[2017-09-09] MEDS: DOXYcycline CAP(*) 100 MG PO SCH (10:33)
[2017-09-09] MEDS: [UNRECOGNIZED DRUG - MIXTURE] SCH (10:34)
[2017-09-09 12:31] VITALS: BP 121/85
[2017-09-09] MEDS ORDERED: Promethazine TAB* 25 MG PO PRN (12:47)
[2017-09-09] MEDS ORDERED: Ondansetron INJ* 2 MG/ML VIAL IV ONE (14:30)
--- NOTE | 2017-09-09 14:43 | PN ---
Subjective Date of Service: 09/09/17 Interval History: Patient seen and examined at bedside. Denies fever, chills, shortness of breath , chest discomfort, V/D. Pt states that headache has broke but she continues to have nausea. We discussed the importance of following treatment plan for headache created by Dr. Rodriguez. We also discussed her home mediations so that the list in the computer was made accurate. Discussed hospital rules of not taking own controlled medications. Pt states that she is feeling better and wants to go home today. Pt admits to taking own imitrex this AM without order. She also reports taking her own Phenergan in the ED. Also note that Pt reports that she currently doesn't have an HSV outbreak but feels that she may have had one recently as she doesn't always get a skin symptoms but has other symptoms. Family History: Unchanged from Admission Social History: Unchanged from Admission Past Medical History: Unchanged from Admission Objective Active Medications: Acetaminophen (Tylenol Tab*) 650 mg PO Q6H PRN Reason: FEVER/PAIN Acetaminophen/Butalbital/Caffeine (Fioricet Tab*) 1 tab PO Q6H PRN Reason: PAIN Alprazolam (Xanax Tab*) 0.25 mg PO TID PRN Reason: ANXIETY Doxycycline Hyclate (Vibramycin Cap(*)) 100 mg PO BID [facility] Estradiol (Climara Patch 0.075 Mg/Day*) 1 patch TRANSDERM Q84H [facility] Lactobacillus Rhamnosus (Lactobacillus Acidophilus*) 1 tab PO DAILY [facility] Lamotrigine (Lamictal Tab(*)) 100 mg PO DAILY [facility] Metoclopramide HCl (Reglan Iv*) 10 mg IV Q6H PRN Reason: NAUSEA Pto: (Famciclovir [ (Famvir] 250 Mg)) 250 mg PO DAILY [facility] Controlled Substance - Testosterone/Progesterone Custom Compound 1 dose .SEE ORDER DAILY [facility] Oxycodone HCl (Roxycodone Tab*) 10 mg PO Q4H PRN Reason: HEADACHE/DISCOMFORT Oxycodone/Acetaminophen (Percocet 5/325 Tab*) 1 tab PO Q4H PRN Reason: PAIN Promethazine HCl (Phenergan Tab*) 25 mg PO Q8H PRN Reason: NAUSEA/VOMITING Thyroid (Thyroid Tab*) 30 mg PO 0600 [facility] Vital Signs - 8 hr 09/09/17 09/09/1718 06:57 06:58 07:14 Temperature 97.7 F Pulse Rate 64 Respiratory 18 18 14 Rate Blood Pressure 126/81 (mmHg) O2 Sat by Pulse 100 Oximetry 09/09/17 09/09/17 09/09/17 07:45 08:15 09:00 Temperature Pulse Rate Respiratory 18 24 18 Rate Blood Pressure (mmHg) O2 Sat by Pulse Oximetry 09/09/17 09/09/17 09/09/17 10:39 11:30 11:33 Temperature 97.5 F Pulse Rate 76 Respiratory 18 16 14 Rate Blood Pressure 121/85 (mmHg) O2 Sat by Pulse 98 Oximetry Oxygen Devices in Use Now: None Appearance: NAD, laying in bed Ears/Nose/Mouth/Throat: Mucous Membranes Moist Respiratory: Symmetrical Chest Expansion and Respiratory Effort, Clear to Auscultation Cardiovascular: NL Sounds; No Murmurs; No JVD, RRR Abdominal: NL Sounds; No Tenderness; No Distention Extremities: No Edema Skin: - - Erythema to left shoulder and upper chest Neurological: Alert and Oriented x 3, NL Muscle Strength and Tone Lines/Tubes/Other Access: Clean, Dry and Intact Peripheral IV - site benign Nutrition: Taking PO's Result Diagrams: 09/08/17 05:19 09/07/17 16:16 Additional Lab and Data: . Microbiology and Other Data: Microbiology 09/07/17 19:43 CSF Gram Stain (Tube 3) - Final Cerebral Spinal Fluid CSF Culture - Preliminary No Growth Day 1 Assess/Plan/Problems-Billing Assessment: Ms. Sanchez is a 46 yo female with PMH significant for depression and migraines who presented to the emergency room with complaints of headache and failure of outpatient treatment of cellulitis. - Patient Problems (1) Cellulitis of shoulder Code(s): L03.119 - CELLULITIS OF UNSPECIFIED PART OF LIMB SNOMED Code(s): 68754026 Comment: - Afebrile or no leukocytosis - Continues to have erythema from left shoulder that extends into neck and upper chest (hard to determine extent of erythma on arm and shoulder due to colored tattoos) - This is not an outpatient failure of doxy as she only received 2 doses prior to presentation - ID consult, input appreciated - Continue doxycycline (2) Migraine headache Code(s): G43.909 - MIGRAINE, UNSP, NOT INTRACTABLE, WITHOUT STATUS MIGRAINOSUS SNOMED Code(s): 75236937 Comment: - With meningismus - LP, CSF unremarkable - Continues to have a headache, but full range of motion of neck today - Followed headache treatment plan from the ED today - Continue home medications PRN - Lyme serology pending (3) Depression Code(s): F32.9 - MAJOR DEPRESSIVE DISORDER, SINGLE EPISODE, UNSPECIFIED SNOMED Code(s): 18934026 Comment: - with associated anxiety - Continue home medications (4) Hypothyroidism Code(s): E03.9 - HYPOTHYROIDISM, UNSPECIFIED SNOMED Code(s): 81662711 Comment: - TSH in 06/2017 3.23 - Continue Thyroid (5) DVT prophylaxis Code(s): FMO9157 - SNOMED Code(s): 149005129 Comment: - SCD's and encourage ambulation (6) Full code status Code(s): Z78.9 - OTHER SPECIFIED HEALTH STATUS SNOMED Code(s): 517953926 Status and Disposition: Inpatient. Stable for discharge to home today.
--- NOTE | 2017-09-09 16:04 | CONS ---
CONSULTATION REPORT: DATE OF CONSULT: 09/09/17. REQUESTING PROVIDER: Jennifer Motley NP. CONSULTING SERVICE: Infectious Disease. REASON FOR CONSULTATION: Headache, fever and rash. IMPRESSION: 1. Erythematous patch on the left shoulder, difficult to detect the actual shape of it given the overlying tattoo, and it has apparently receded and faded over the last 2 to 3 days here. At this time of year she suspects it was initially a bug bite, early Lyme was on the top of the list, could be a cellulitis as well related to skin veronica. She had a lumbar puncture that was unremarkable. 2. History of migraines. RECOMMENDATIONS: Continue doxycycline 100 mg by mouth twice daily, to finish a week, and recommended she continue that regardless of the results of the Lyme serology which are almost always negative ryan y in the illness. HISTORY OF PRESENT ILLNESS: This is a 46-year-old woman admitted to the hospital on the 09/07/17 with fever, chills, severe headache, photophobia and redness and swelling over the left shoulder that had developed a couple days before. Initially, about a week before, it started as an itchy bug bite. She was prescribed Keflex at [facility], which was switched to doxycycline. She had taken it for about a day and a half and because of worsening headache and fevers she came to the hospital in the afternoon of 09/07/17. She had no leukocytosis. She had slight thrombo-cytopenia, she was febrile at 38.3. She had lumbar puncture that showed one white cell, normal protein, glucose, no organisms on the Gram stain, cultures negative, blood cultures negative. She has been on doxycycline here for the last 2 days, tolerating it well. The redness has faded. Her headache is almost gone and yesterday felt great and then had the onset of one of her typical migraines, she believes. She has not had hospitalizations due to infection recently. [place] She has outdoor pets as well. No recent tattoo, just her old ones. PAST MEDICAL HISTORY: 1. Depression. 2. Migraine headache. 3. Status post hysterectomy. 4. Status post bladder surgery. MEDICATIONS: 1. Tylenol. 2. Xanax as needed. 3. Doxycycline 100 mg by mouth twice daily. 4. Estradiol patch. 5. Famciclovir. 6. Reglan as needed. 7. Lamictal. 8. Acidophilus. 9. Thyroid tablet. 10. Promethazine. ALLERGIES: To KEFLEX, MORPHINE, BENADRYL, TRAMADOL, CIPROFLOXACIN, KETOROLAC, GABAPENTIN, NSAIDS, PREGABALIN. FAMILY HISTORY: No recurrent infections. SOCIAL HISTORY: She lives in [place]. No travel or sick contact. She is disabled. No injection drugs. REVIEW OF SYSTEMS: All negative to 14-point review of systems, except as noted above. PHYSICAL EXAM: Vital Signs: Temperature 36, heart rate 70, respiratory rate 14 , blood pressure 121/85, oxygen saturation 98% on room air. General: She is awake, not in distress. Neurologic: She is oriented x3. Follows all commands. HEENT: There is no conjunctival hemorrhage. Oropharynx without lesions. Neck is supple without mass. Heart is regular rate and rhythm without murmurs, rubs or gallops. Lungs are clear to auscultation bilaterally. Abdomen: Soft, nontender, nondistended. There are bowel sounds present. Skin : Over the left posterior and lateral shoulder there is a 4-cm erythematous patch receded from the outlined area, slight warmth. There is no tenderness. No other rash. Musculoskeletal: There is no left shoulder effusion or decreased range of motion of left shoulder. No spine tenderness to palpation. LABORATORY DATA: White blood cell count 4.5, hemoglobin 13.8, platelets 151. Creatinine 0.7. CRP 39. Please see impressions and recommendations outlined above, which I have discussed with Jennifer Motley NP. Thanks for asking me to see Ms. Sanchez in consultation. [id number]/[facility] #: [id number] [facility]
--- NOTE | 2017-09-10 14:57 | DS ---
CC: Dr. Tasia Rodriguez; Dr. Ilana Decker; Dr. Ramon Santos * DATE OF ADMISSION: 09/07/17. DATE OF DISCHARGE: 09/09/17. ATTENDING PHYSICIAN: Dr. Hector Petty * (dictated by Jennifer Lind NP). PRIMARY CARE PHYSICIAN: Dr. Ilana Decker. PRIMARY NEUROLOGIST: Dr. Tasia Rodriguez. PRIMARY DIAGNOSES: 1. Left shoulder cellulitis. 2. Migraine headaches. SECONDARY DIAGNOSIS: 1. Depression. 2. Premature menopause. 3. Recurrent HSV-2 infection. CONSULTATIONS WHILE IN THE HOSPITAL: Dr. Ramon Santos with Infectious Disease. STUDIES WHILE IN THE HOSPITAL: Chest x-ray, 09/07/17: Radiologist's impression : Normal chest. DISCHARGE MEDICATIONS: Continued home medications: 1. Xanax 0.25 mg oral 3 times daily as needed for anxiety. 2. Lamictal 100 mg oral daily. 3. Lactobacillus 1 capsule oral daily. 4. Famciclovir 250 mg oral twice daily. 5. Estradiol patch 0.05 mg a day 1 transdermal patch as directed. 6. Doxycycline 100 mg oral twice daily, for 1 more week. 7. Vitamin B12 at 1000 mcg oral weekly. 8. Testosterone 0.25 mL topical twice daily. 9. Hydromorphone suppositories 3 mg per rectum twice daily as needed for headache. 10. Fioricet with codeine 1 to 2 capsules oral q.4 hours as needed for headache. 11. Thyroid 30 mL oral daily. 12. Qnasl 80 mcg to both nares daily. 13. Progesterone cream 0.25 mL topical twice daily. 14. Sumatriptan 1 subcutaneous everyday as needed for migraines. 15. Phenergan 25 mg oral every 8 hours as needed for nausea. HISTORY OF PRESENT ILLNESS/HOSPITAL COURSE: Ms. Sanchez is a 46-year-old female with a past medical history significant for migraine headaches, who had an apparent insect bite on her left shoulder over a week prior to her admission, became painful and red leading her to visit her primary care provider's office, who started her on Keflex for cellulitis. The patient developed gastritis and was seen at urgent care on 09/05/17, where she was switched to doxycycline for treatment of her cellulitis. The patient took 2 pills of doxycycline tolerating it well, but had increasing pain in her neck, photophobia, prompting her to present to the emergency room for further evaluation. While in the emergency room, the patient was found to have neck stiffness. She also had a mild fever with a temperature of 100.9. She had no leukocytosis. Normal chemistries. Slightly elevated CRP at 25. She had a lumbar puncture that was insignificant. The patient was continued on doxycycline for a possible tick bite. She was also continued on Kefzol that she was tolerating the Kefzol well IV. During her stay, she continued to have a headache. She was feeling okay on the day after her admission, but due to the amount of redness that she had had she wanted to stay for one more day for IV antibiotics. This morning the patient continued to have a significant headache. She took her own Imitrex later notifying staff that she took it. Due to the patient's persistent headache, I obtained and followed the emergency room headache protocol in place for the patient giving her a liter of normal saline bolus, 1 mg of IV Dilaudid and 4 mg of Zofran. The patient continued to have a headache and I repeated hydromorphone at 2 mg,and a repeat Zofran. Her headaches finally broke, but she continued to have significant nausea. I ordered her Phenergan as she takes oral Phenergan at home. I contacted Dr. Rodriguez's office to attempt to talk to Dr. Rodriguez about the patient's headache. She was not available in the office today, but I did discuss the patient's care with one of the nurses in the office. Additionally, due to the patient's history of insect bite, headache, I asked Dr. Ramon Santos with infectious disease to consult on the patient. It was felt that with her cellulitis improving, she could go home on doxycycline in that she did not have antibiotic failure. At the time of her discharge, her herpes simplex from her CSF and her Lyme serology were pending. Please note that Ms. Sanchez is stable for discharge today. Vital signs are as follows: Temperature 97.5, heart rate 76, respiratory rate 14, O2 sat 98% on room air, blood pressure 121/85. DISCHARGE PLAN: Ms. Sanchez will be discharged to home. In regard to her cellulitis, she will be continued on doxycycline 100 mg oral twice daily for 1 more week. Please follow up with her Lyme serology as this could also represent Lyme's disease. Additionally, the patient has HSV pending in her CSF fluid that will need be followed up as an outpatient at the time of discharge. The patient's migraine has broke. I encouraged her to follow up with Dr. Rodriguez. She currently has an appointment with Dr. Rodriguez on 09/25/17 for her routinely scheduled Botox. We asked her to discuss her migraines with Dr. Rodriguez at that time and resumed on her other usual home medications. She has been asked her to return to the emergency room for any chest pain, shortness of breath, or return of her intractable migraine. This is a summarized report of a complex medical history and hospital stay. For further details, please see the entire medical record. Time for this discharge was approximately 50 minutes, greater than half of that was spent [id number] with the patient discussing discharge plans and instructions. CONDITION ON DISCHARGE: Stable. Reviewed by FRANK JACOBS 09/23/17 1752 [id number]/[facility] #: [id number] LISA
== END 2017-09-09 15:30 | disposition home or self-care (01) | DRG 603 ==
LOC: ED 14:49 → SSU 21:14 → OBSVTOIN 09-08 13:18 → INTOOBSV 09-08 13:18
PROVIDERS: ADMIT Internal Medicine; ATTEND Internal Medicine
PROC: 009U3ZX Drainage of Spinal Canal, Percutaneous Approach, Diagnostic (ICD-10-PCS; principal; 2017-09-08)
DX: L03.114 Cellulitis of left upper limb (principal); R29.1 Meningismus; G43.909 Migraine, unspecified, not intractable, without status migrainosus; J45.909 Unspecified asthma, uncomplicated; F41.9 Anxiety disorder, unspecified; F31.9 Bipolar disorder, unspecified; N39.3 Stress incontinence (female) (male); H53.149 Visual discomfort, unspecified; E03.9 Hypothyroidism, unspecified; E28.319 Asymptomatic premature menopause; Z90.710 Acquired absence of both cervix and uterus; Z88.1 Allergy status to other antibiotic agents; Z88.6 Allergy status to analgesic agent; Z88.8 Allergy status to other drugs, medicaments and biological substances; Z81.8 Family history of other mental and behavioral disorders; Z81.1 Family history of alcohol abuse and dependence; Z84.81 Family history of carrier of genetic disease; Z88.5 Allergy status to narcotic agent; Z87.891 Personal history of nicotine dependence; Z86.19 Personal history of other infectious and parasitic diseases; R51 Headache
CPT/HCPCS: 36415; 71045; 80053; 81003; 82945; 83605; 84157; 84484; 85025; 85610; 85730; 86140; 86617; 86618; 87040; 87070; 87205; 87529; 89051; 93005; 99284; A9270-GY; G0378; J0133; J0690; J0696; J1170; J2405; J2765; J3370

== ENCOUNTER → 2017-12-19 13:58 | Emergency (ER) | payer MEDICARE ==
[~2017-12-19 13:58] MED LIST changes: -Dexamethasone IV* 4 MG/ML 5 ML VIAL (20 MG) IVPB ONE; -HYDROmorphone INJ* 1 MG/ML CARPUJECT SYRINGE IV SLOW PU ONE; +HYDROmorphone INJ* 2 MG/ML CARPUJECT SYRINGE IV SLOW PU ONE; +HYDROmorphone INJ1* 1 MG/ML SYRINGE ONE; -Magnesium Sulfate 1 GM IV* 1 GM/100 ML BAG IV ONE; +NS 0.9% 1000 ML* 1,000 ML IV ONE
[2017-12-19] MEDS: HYDROmorphone INJ1* 1 MG/ML SYRINGE IV SLOW PU ONE ×2 (15:48→16:50)
[2017-12-19 18:00] VITALS: BP 118/74
--- NOTE | 2017-12-21 06:12 | ED ---
Headache - HPI Summary HPI Summary: Patient is a 47-year-old female with a history of migraines presenting to the ED with a left-sided migraine 3 days. She states she is also having a sinus infection which has exacerbated her symptoms. She states this is not worst of life, and this was consistent with her previous migraines. She sees Dr. Rodriguez , neurologist for her migraines and has tried her home Imitrex and nausea medication without relief. While she is nauseous, she denies vomiting. She states she is otherwise healthy. She has not been taking antibiotics for sinus infections because she does not like medications. However, she states she is willing to P placed on antibiotics at this time she feels the sinusitis is worsening her migraine symptoms. She denies aura. Endorses photophobia and phonophobia. - History Of Current Complaint Chief Complaint: EDHeadache Stated Complaint: HEADACHE/COLD Time Seen by Provider: 12/19/17 14:42 Hx Obtained From: Patient Onset/Duration: Started hours ago Initially Headache Was: Initial Pain Scale(0-10)= - 9 Currently Pain Is: Current Pain Scale(0-10)= - 9 Timing: Constant Aggravating Factor: Nothing Allevating Factors: Nothing - Risk Factors SAH Risk Factors: Negative Meningitis Risk Factors: Negative SDH Risk Factors: Negative Temporal Arteritis Risk Factors: Negative - Allergies/Home Medications Allergies/Adverse Reactions: Allergies Allergy/AdvReac Type Severity Reaction Status Date / Time diphenhydramine AdvReac Intermediate Numbness Verified 12/19/17 14:16 [From Benadryl] And Tingling tramadol AdvReac Intermediate Muscle Ache Verified 12/19/17 14:16 cephalexin [From Keflex] AdvReac GI Upset Verified 12/19/17 14:16 ciprofloxacin [From Cipro] AdvReac Abdominal Verified 12/19/17 14:16 Pain gabapentin [From Neurontin] AdvReac Muscle Ache Verified 12/19/17 14:16 ketorolac [From Toradol] AdvReac Muscle Ache Verified 12/19/17 14:16 morphine AdvReac MAKES Verified 12/19/17 14:16 LIMBS GO NUMB NSAIDS (Non-Steroidal AdvReac GI Upset Verified 12/19/17 14:16 Anti-Inflamma pregabalin [From Lyrica] AdvReac Muscle Ache Verified 12/19/17 14:16 PMH/Surg Hx/FS Hx/Imm Hx Previously Healthy: Yes Endocrine/Hematology History: Reports: Hx Thyroid Disease Denies: Hx Diabetes Cardiovascular History: Denies: Hx Hypertension, Hx Pacemaker/ICD Respiratory History: Reports: Hx Asthma Denies: Hx Chronic Obstructive Pulmonary Disease (COPD) GI History: Denies: Hx Ulcer History: Reports: Other Problems/Disorders - stress incontinence Denies: Hx Renal Disease Musculoskeletal History: Denies: Hx Rheumatoid Arthritis, Hx Osteoporosis, Hx Scoliosis Sensory History: Reports: Hx Contacts or Glasses Denies: Hx Hearing Aid Opthamlomology History: Reports: Hx Contacts or Glasses Neurological History: Reports: Hx Headaches - migraines, Hx Migraine - Chronic, Other Neuro Impairments/Disorders - CHRONIC MIGRAINES Psychiatric History: Reports: Hx Anxiety, Hx Depression, Hx Bipolar Disorder Denies: Hx Panic Disorder - Surgical History Surgery Procedure, Year, and Place: bladder surgery, HYSTERECTOMY, LUMP REMOVED RT BREAST ATYPICAL,APPY 2005 - Immunization History Date of Tetanus Vaccine: recent Date of Influenza Vaccine: none Hx Pertussis Vaccination: No Immunizations Up to Date: Yes Infectious Disease History: No Infectious Disease History: Denies: Hx Clostridium Difficile, Hx Hepatitis, Hx Human Immunodeficiency Virus (HIV), Hx of Known/Suspected MRSA, Hx Shingles, Hx Tuberculosis, Traveled Outside the [place] in Last 30 Days - Family History Known Family History: Negative: Cardiac Disease, Diabetes - Social History Occupation: Employed Full-time Lives: With Family Alcohol Use: None Hx Substance Use: No Substance Use Type: Reports: None Hx Tobacco Use: Yes Smoking Status (MU): Former Smoker Review of Systems Negative: Fever, Chills, Fatigue, Skin Diaphoresis Negative: Palpitations, Chest Pain Negative: Shortness Of Breath, Cough Genitourinary: Negative Positive: no symptoms reported, see HPI Negative: Arthralgia, Myalgia Skin: Negative Neurological: Negative All Other Systems Reviewed And Are Negative: Yes Physical Exam Triage Information Reviewed: Yes Vital Signs On Initial Exam: Initial Vitals Temp Pulse Resp BP Pulse Ox 97.5 F 96 16 139/90 99 12/19/17 14:12 12/19/17 14:12 12/19/17 14:12 12/19/17 14:12 12/19/17 14:12 Vital Signs Reviewed: Yes Appearance: Positive: Well-Appearing, Well-Nourished Skin: Positive: Warm, Skin Color Reflects Adequate Perfusion Head/Face: Positive: Normal Head/Face Inspection Eyes: Positive: EOMI, KEKE, Conjunctiva Clear Neck: Positive: Supple, No Lymphadenopathy Respiratory/Lung Sounds: Positive: Clear to Auscultation, Breath Sounds Present Cardiovascular: Positive: RRR, Pulses are Symmetrical in both Upper and Lower Extremities Musculoskeletal: Positive: Strength/ROM Intact Neurological: Positive: Speech Normal Psychiatric: Positive: Normal, Affect/Mood Appropriate Diagnostics - Vital Signs Vital Signs Temp Pulse Resp BP Pulse Ox 12/19/17 17:59 98.1 F 76 16 118/74 99 12/19/17 16:51 15 12/19/17 16:50 15 12/19/17 16:30 75 15 112/69 99 12/19/17 15:49 15 12/19/17 15:48 15 12/19/17 14:12 97.5 F 96 16 139/90 99 - Laboratory Lab Statement: Any lab studies that have been ordered have been reviewed, and results considered in the medical decision making process. Headache Course/Dx - Course Course Of Treatment: spine is nontender we he will Patient is evaluated for migraine. She states this is her typical migraine headache and often will move from left side to right side. Denies pain directly over the forehead. Endorses phonophobia and photophobia. She has taken her home medications without relief. She states she has a "protocol" from Dr. Silvestre which includes 2 mL Dilaudid for her headaches as this is the only thing which helps her in the past. Previous visits show she has been getting this Dilaudid every visit with good relief. She is given 1 mL Dilaudid with minimal relief and is requesting another mL. She is then given another mL Dilaudid as well as nausea medication. This did help her symptoms and she is okay for discharge at this time. On physical examination, pupils equal and reactive to light, maxillary sinus tenderness bilaterally. Lungs CTA, RRR. Patient appears otherwise well and nontoxic. She states she would be willing to try antibiotics for her sinusitis. - Diagnoses Differential Diagnosis/HQI/PQRI: Migraine, Tension Headache Provider Diagnoses: Migraine Discharge - Sign-Out/Discharge Documenting (check all that apply): Patient Departure - Discharge Plan Condition: Stable Disposition: HOME Prescriptions: Amoxicillin/Clavulanate TAB* [Augmentin TAB 875*] 875 mg PO BID #14 tab Patient Education Materials: Sinusitis (ED) Referrals: Ilana Decker MD [Primary Care Provider] - Additional Instructions: Please take at home medications for migraine Return to the ED for worsening symptoms - Billing Disposition and Condition Condition: STABLE Disposition: Home
== END | disposition home or self-care (01) ==
LOC: ED 13:58
DX: G43.909 Migraine, unspecified, not intractable, without status migrainosus (principal); Z87.891 Personal history of nicotine dependence
CPT/HCPCS: 96361; 96374; 96376; 99282; J1170

== ENCOUNTER 2017-12-20 21:55 | Emergency (ER) | payer MEDICARE ==
[2017-12-20 22:09] VITALS: BP 139/81
--- NOTE | 2017-12-21 06:02 | ED ---
Headache - HPI Summary HPI Summary: Patient is a 7-year-old female with a history of migraines presenting to the ED with a left-sided migraine 3 days. She states she is also having a sinus infection which has exacerbated her symptoms. She states this is not worst of life, and this was consistent with her previous migraines. She sees Dr. Rodriguez , neurologist for her migraines and has tried her home Imitrex and nausea medication without relief. While she is nauseous, she denies vomiting. She states she is otherwise healthy. She has not been taking antibiotics for sinus infections because she does not like medications. However, she states she is willing to P placed on antibiotics at this time she feels the sinusitis is worsening her migraine symptoms. She denies aura. Endorses photophobia and phonophobia. - History Of Current Complaint Chief Complaint: EDHeadache Stated Complaint: HEADACHE Hx Obtained From: Patient Onset/Duration: Gradual Onset Initially Headache Was: Initial Pain Scale(0-10)= - 9 Currently Pain Is: Current Pain Scale(0-10)= - 9 Timing: Constant Character: Throbbing Location of Headache: Diffuse Aggravating Factor: Position Change, Bright Lights Allevating Factors: Rest Associated Signs And Symptoms: Nausea - Risk Factors SAH Risk Factors: Negative Meningitis Risk Factors: Negative Temporal Arteritis Risk Factors: Female, - Allergies/Home Medications Allergies/Adverse Reactions: Allergies Allergy/AdvReac Type Severity Reaction Status Date / Time diphenhydramine AdvReac Intermediate Numbness Verified 12/19/17 14:16 [From Benadryl] And Tingling tramadol AdvReac Intermediate Muscle Ache Verified 12/19/17 14:16 cephalexin [From Keflex] AdvReac GI Upset Verified 12/19/17 14:16 ciprofloxacin [From Cipro] AdvReac Abdominal Verified 12/19/17 14:16 Pain gabapentin [From Neurontin] AdvReac Muscle Ache Verified 12/19/17 14:16 ketorolac [From Toradol] AdvReac Muscle Ache Verified 12/19/17 14:16 morphine AdvReac MAKES Verified 12/19/17 14:16 LIMBS GO NUMB NSAIDS (Non-Steroidal AdvReac GI Upset Verified 12/19/17 14:16 Anti-Inflamma pregabalin [From Lyrica] AdvReac Muscle Ache Verified 12/19/17 14:16 PMH/Surg Hx/FS Hx/Imm Hx Previously Healthy: Yes Endocrine/Hematology History: Reports: Hx Thyroid Disease Denies: Hx Diabetes Cardiovascular History: Denies: Hx Hypertension, Hx Pacemaker/ICD Respiratory History: Reports: Hx Asthma Denies: Hx Chronic Obstructive Pulmonary Disease (COPD) GI History: Denies: Hx Ulcer History: Reports: Other Problems/Disorders - stress incontinence Denies: Hx Renal Disease Musculoskeletal History: Denies: Hx Rheumatoid Arthritis, Hx Osteoporosis, Hx Scoliosis Sensory History: Reports: Hx Contacts or Glasses Denies: Hx Hearing Aid Opthamlomology History: Reports: Hx Contacts or Glasses Neurological History: Reports: Hx Headaches - migraines, Hx Migraine - Chronic, Other Neuro Impairments/Disorders - CHRONIC MIGRAINES Psychiatric History: Reports: Hx Anxiety, Hx Depression, Hx Bipolar Disorder Denies: Hx Panic Disorder - Surgical History Surgery Procedure, Year, and Place: bladder surgery, HYSTERECTOMY, LUMP REMOVED RT BREAST ATYPICAL,APPY 2005 - Immunization History Date of Tetanus Vaccine: recent Date of Influenza Vaccine: none Hx Pertussis Vaccination: No Immunizations Up to Date: Yes Infectious Disease History: No Infectious Disease History: Denies: Hx Clostridium Difficile, Hx Hepatitis, Hx Human Immunodeficiency Virus (HIV), Hx of Known/Suspected MRSA, Hx Shingles, Hx Tuberculosis, Traveled Outside the [place] in Last 30 Days - Family History Known Family History: Negative: Cardiac Disease, Diabetes - Social History Occupation: Employed Full-time Lives: With Family Alcohol Use: None Hx Substance Use: No Substance Use Type: Reports: None Hx Tobacco Use: Yes Smoking Status (MU): Former Smoker Review of Systems Negative: Fever, Chills, Fatigue, Skin Diaphoresis Negative: Palpitations, Chest Pain Negative: Shortness Of Breath, Cough Positive: Nausea. Negative: Vomiting, Diarrhea Genitourinary: Negative Positive: no symptoms reported, see HPI Positive: Headache Psychological: Normal All Other Systems Reviewed And Are Negative: Yes Physical Exam Triage Information Reviewed: Yes Vital Signs On Initial Exam: Initial Vitals Temp Pulse Resp BP Pulse Ox 97.9 F 86 16 139/81 100 12/20/17 22:07 12/20/17 22:07 12/20/17 22:07 12/20/17 22:07 12/20/17 22:07 Vital Signs Reviewed: Yes Appearance: Positive: Well-Appearing, Well-Nourished Skin: Positive: Warm, Skin Color Reflects Adequate Perfusion Head/Face: Positive: Normal Head/Face Inspection Eyes: Positive: EOMI, KEKE, Conjunctiva Clear Neck: Positive: Supple, No Lymphadenopathy Respiratory/Lung Sounds: Positive: Clear to Auscultation, Breath Sounds Present Cardiovascular: Positive: RRR, Pulses are Symmetrical in both Upper and Lower Extremities Diagnostics - Vital Signs Vital Signs Temp Pulse Resp BP Pulse Ox 12/20/17 22:07 97.9 F 86 16 139/81 100 - Laboratory Lab Statement: Any lab studies that have been ordered have been reviewed, and results considered in the medical decision making process. Headache Course/Dx - Course Course Of Treatment: Patient is evaluated for migraine. She states this is her typical migraine headache and often will move from left side to right side. Denies pain directly over the forehead. Endorses phonophobia and photophobia. She has taken her home medications without relief. She states she has a "protocol" from Dr. Silvestre which includes 2 mL Dilaudid for her headaches as this is the only thing which helps her in the past. Previous visits show she has been getting this Dilaudid every visit with good relief. She is given 1 mL Dilaudid with minimal relief and is requesting another mL. She is then given another mL Dilaudid as well as nausea medication. This did help her symptoms and she is okay for discharge at this time. On physical examination, pupils equal and reactive to light, maxillary sinus tenderness bilaterally. Lungs CTA , RRR. Patient appears otherwise well and nontoxic. She states she would be willing to try antibiotics for her sinusitis. Discharge - Discharge Plan Disposition: LEFT WITHOUT BEING SEEN Referrals: Ilana Decker MD [Primary Care Provider] - - Billing Disposition and Condition Disposition: Left Without Being Seen
== END 2017-12-21 00:13 | disposition left against medical advice (07) ==
LOC: ED 21:55
DX: R11.2 Nausea with vomiting, unspecified (principal); Z88.8 Allergy status to other drugs, medicaments and biological substances
CPT/HCPCS: 99281

== ENCOUNTER 2017-12-21 13:38 | Emergency (ER) | payer MEDICARE ==
[2017-12-21] MEDS ORDERED: HYDROmorphone INJ* 2 MG/ML CARPUJECT SYRINGE IV SLOW PU ONE (14:40)
[2017-12-21] MEDS ORDERED: NS 0.9% 1000 ML* 1,000 ML IV ONE (14:40)
--- NOTE | 2017-12-21 14:41 | ED ---
Headache - HPI Summary HPI Summary: Patient is a 47 y/o F w/ c/o migraine MEZA onsetting four days ago. She notes PMHx of migraines; her neurologist is Dr. Rodriguez. Present Sx are similar to prior episodes. She notes N/V, photophobia, phonophobia, left sided MEZA, increased frequency of urination as associated Sx. Patient reports that her MEZA location was originally right sided but had swapped to the left side since onset. She does not describe this as abnormal. She also reports a sinus infection for the past week which she believes is aggravating her migraine Sx. Patient reports taking imitrex, fioricet and promethazine [employer]. She reports that she has standing orders at the hospital, which involve being treated with IV fluids and dilaudid for pain management. On triage, pain is rated 10/10, nothing is noted to alleviate/aggravate Sx. Home medications and allergies are reviewed. - History Of Current Complaint Chief Complaint: EDHeadache Stated Complaint: HEADACHE Time Seen by Provider: 12/21/17 13:58 Hx Obtained From: Patient Onset/Duration: Started days ago - migraine Sx, four days ago; MEZA location switched from right to left side today., Started weeks ago - sinus infection Currently Pain Is: Severe - 10/10 Timing: Constant Character: Migraine Location of Headache: Other: - originally right sided, now left sided Aggravating Factor: Bright Lights, Other - sound Allevating Factors: Nothing Associated Signs And Symptoms: Nausea, Vomiting, Other (Noted In Comments) - sinus infection, increased frequency of urination - Allergies/Home Medications Allergies/Adverse Reactions: Allergies Allergy/AdvReac Type Severity Reaction Status Date / Time diphenhydramine AdvReac Intermediate Numbness Verified 12/21/17 13:50 [From Benadryl] And Tingling tramadol AdvReac Intermediate Muscle Ache Verified 12/21/17 13:50 cephalexin [From Keflex] AdvReac GI Upset Verified 12/21/17 13:50 ciprofloxacin [From Cipro] AdvReac Abdominal Verified 12/21/17 13:50 Pain gabapentin [From Neurontin] AdvReac Muscle Ache Verified 12/21/17 13:50 ketorolac [From Toradol] AdvReac Muscle Ache Verified 12/21/17 13:50 morphine AdvReac MAKES Verified 12/21/17 13:50 LIMBS GO NUMB NSAIDS (Non-Steroidal AdvReac GI Upset Verified 12/21/17 13:50 Anti-Inflamma pregabalin [From Lyrica] AdvReac Muscle Ache Verified 12/21/17 13:50 PMH/Surg Hx/FS Hx/Imm Hx Endocrine/Hematology History: Reports: Hx Thyroid Disease Denies: Hx Diabetes Cardiovascular History: Denies: Hx Hypertension, Hx Pacemaker/ICD Respiratory History: Reports: Hx Asthma Denies: Hx Chronic Obstructive Pulmonary Disease (COPD) GI History: Denies: Hx Ulcer History: Reports: Other Problems/Disorders - stress incontinence Denies: Hx Renal Disease Musculoskeletal History: Denies: Hx Rheumatoid Arthritis, Hx Osteoporosis, Hx Scoliosis Sensory History: Reports: Hx Contacts or Glasses Opthamlomology History: Reports: Hx Contacts or Glasses Neurological History: Reports: Hx Headaches - migraines, Hx Migraine - Chronic, Other Neuro Impairments/Disorders - CHRONIC MIGRAINES Psychiatric History: Reports: Hx Anxiety, Hx Depression, Hx Bipolar Disorder Denies: Hx Panic Disorder - Surgical History Surgery Procedure, Year, and Place: bladder surgery, HYSTERECTOMY, LUMP REMOVED RT BREAST ATYPICAL,APPY 2006 - Immunization History Date of Tetanus Vaccine: recent Date of Influenza Vaccine: none Infectious Disease History: No Infectious Disease History: Denies: Hx Clostridium Difficile, Hx Hepatitis, Hx Human Immunodeficiency Virus (HIV), Hx of Known/Suspected MRSA, Hx Shingles, Hx Tuberculosis, Traveled Outside the [place] in Last 30 Days - Family History Known Family History: Negative: Cardiac Disease, Diabetes - Social History Alcohol Use: None Hx Substance Use: No Substance Use Type: Reports: None Hx Tobacco Use: Yes Smoking Status (MU): Former Smoker Review of Systems Positive: Photophobia Positive: Other - Phonophobia Positive: Vomiting, Nausea Positive: other - increased frequency of urination Positive: Headache All Other Systems Reviewed And Are Negative: Yes Physical Exam - Summary Physical Exam Summary: Appearance: The patient is well-nourished; patient is in moderate pain distress. Skin: The skin is warm and dry and skin color reflects adequate perfusion. HEENT: The head is normocephalic and atraumatic. The pupils are equal and reactive. The conjunctivae are clear and without drainage. Nares are patent and without drainage. Mouth reveals moist mucous membranes and the throat is without erythema and exudate. The external ears are intact. The ear canals are patent and without drainage. The tympanic membranes are intact. Neck: The neck is supple with full range of motion and non-tender. There are no carotid bruits. There is no neck vein distension. Respiratory: Chest is non-tender. Lungs are clear to auscultation and breath sounds are symmetrical and equal. Cardiovascular: Heart is regular rate and rhythm. There is no murmur or rub auscultated. There is no peripheral edema and pulses are symmetrical and equal. Abdomen: The abdomen is soft and non-tender. There are normal bowel sounds heard in all four quadrants and there is no organomegaly palpated. Musculoskeletal: There is no back tenderness noted. Extremities are non-tender with full range of motion. There is good capillary refill. There is no peripheral edema or calf tenderness elicited. Neurological: Patient is alert and oriented to person, place and time. The patient has symmetrical motor strength in all four extremities. Cranial nerves are grossly intact. Deep tendon reflexes are symmetrical and equal in all four extremities. Psychiatric: The patient has an appropriate affect and does not exhibit any anxiety or depression. Triage Information Reviewed: Yes Vital Signs On Initial Exam: Initial Vitals Temp Pulse Resp BP Pulse Ox 97.6 F 82 16 131/74 99 12/21/17 13:50 12/21/17 13:50 12/21/17 13:50 12/21/17 13:50 12/21/17 13:50 Vital Signs Reviewed: Yes Diagnostics - Vital Signs Vital Signs Temp Pulse Resp BP Pulse Ox 12/21/17 14:00 77 22 100 12/21/17 13:59 75 18 130/81 100 12/21/17 13:58 76 18 100 12/21/17 13:50 97.6 F 82 16 131/74 99 - Laboratory Lab Statement: Any lab studies that have been ordered have been reviewed, and results considered in the medical decision making process. Re-Evaluation - Re-Evaluation First Eval Re-Evaluation Time: 15:44 Change: Improved Comment: Improvement in Sx is reported by patient. Patient will be discharged to home and was instructed to follow up with her neurologist next week after being given decadron. Headache Course/Dx - Course Course Of Treatment: Ms. Sanchez presented complaining of a typical migraine headache. She has a recent diagnosis of sinusitis and she feels that this has triggered her migraine. She sees Dr. Silvestre for migraines and has a plan on file here in the emergency department. Following that plan she was given IV fluid and Dilaudid and felt significantly improved. She requested also a shot of Decadron which she has had for her migraines in the past. She was given Ativan discharged in improved condition. - Diagnoses Provider Diagnoses: Migraine headache Discharge - Sign-Out/Discharge Documenting (check all that apply): Patient Departure - discharge - Discharge Plan Condition: Stable Disposition: HOME Patient Education Materials: Migraine Headache (ED) Referrals: Tasia Rodriguez MD [Medical Doctor] - 1 Week Additional Instructions: RETURN TO ED FOR ANY NEW OR WORSENING SYMPTOMS. FOLLOW UP WITH YOUR NEUROLOGIST NEXT WEEK. - Billing Disposition and Condition Condition: STABLE Disposition: Home - Attestation Statements Document Initiated by Boaz: Yes Documenting Scribe: Indra Mathew Provider For Whom Boaz is Documenting (Include Credential): Dave Wise MD Scribe Attestation: Indra Curry , scribed for Dave Wise MD on 12/21/17 at 2120. Scribe Documentation Reviewed: Yes Provider Attestation: The documentation as recorded by the Indra dave accurately reflects the service I personally performed and the decisions made by me, Dave Wise MD
[2017-12-21] MEDS ORDERED: HYDROmorphone INJ1* 1 MG/ML SYRINGE ONE (14:47)
[2017-12-21] MEDS ORDERED: Dexamethasone IV* 4 MG/ML 1 ML (4 MG) IV SLOW PU ONE (15:49)
[2017-12-21 16:23] VITALS: BP 133/73
== END 2017-12-21 16:26 | disposition home or self-care (01) ==
LOC: ED 13:38
DX: G43.909 Migraine, unspecified, not intractable, without status migrainosus (principal); J32.9 Chronic sinusitis, unspecified; E07.9 Disorder of thyroid, unspecified; Z87.891 Personal history of nicotine dependence; F41.9 Anxiety disorder, unspecified; F31.30 Bipolar disorder, current episode depressed, mild or moderate severity, unspecified
CPT/HCPCS: 96361; 96374; 96375; 99282; J1100; J1170

== ENCOUNTER 2018-02-14 04:02 | Emergency (ER) | payer MEDICARE ==
[2018-02-14] MEDS ORDERED: NS 0.9% 1000 ML* 1,000 ML IV ONE (04:22)
[2018-02-14] MEDS ORDERED: HYDROmorphone INJ1* 1 MG/ML SYRINGE IV SLOW PU ONE (04:22)
[2018-02-14] MEDS ORDERED: Ondansetron INJ* 2 MG/ML VIAL IV ONE (04:22)
[2018-02-14] MEDS ORDERED: Dexamethasone IV* 10 MG in NS 0.9% 50 ML* 50 ML IVPB ONE (04:23)
--- NOTE | 2018-02-14 05:02 | ED ---
Headache - HPI Summary HPI Summary: A 47 y/o female presents to the ED c/o migraine. Currently, the patient is experiencing a migraine reaching 8/10 in severity. As per triage, "Patient reports headache (migraine). Has taken medications with no relief". According to the patient, her medications are not helping as she is on this cycle. She cannot sleep and she experiences pain in her neck, head, and shoulders. Additionally she has nausea. She denies any fever. She noted that normally she has migraines on left side normally, but today it is on right side. Patient refused CAT scan of head. - History Of Current Complaint Chief Complaint: EDHeadache Stated Complaint: HEADACHE Time Seen by Provider: 02/14/18 04:12 Hx Obtained From: Patient Onset/Duration: Sudden Onset, Started hours ago, Still Present Initially Headache Was: Severe - 8/10 Currently Pain Is: Severe - 8/10 Timing: Constant Character: Migraine Radiates to: NECK AND SHOULDERS Aggravating Factor: Nothing Allevating Factors: Nothing Associated Signs And Symptoms: Nausea, Neck Pain - Allergies/Home Medications Allergies/Adverse Reactions: Allergies Allergy/AdvReac Type Severity Reaction Status Date / Time diphenhydramine AdvReac Intermediate Numbness Verified 02/14/18 04:40 [From Benadryl] And Tingling tramadol AdvReac Intermediate Muscle Ache Verified 02/14/18 04:40 cephalexin [From Keflex] AdvReac GI Upset Verified 02/14/18 04:40 ciprofloxacin [From Cipro] AdvReac Abdominal Verified 02/14/18 04:40 Pain gabapentin [From Neurontin] AdvReac Muscle Ache Verified 02/14/18 04:40 ketorolac [From Toradol] AdvReac Muscle Ache Verified 02/14/18 04:40 morphine AdvReac MAKES Verified 02/14/18 04:40 LIMBS GO NUMB NSAIDS (Non-Steroidal AdvReac GI Upset Verified 02/14/18 04:40 Anti-Inflamma pregabalin [From Lyrica] AdvReac Muscle Ache Verified 02/14/18 04:40 PMH/Surg Hx/FS Hx/Imm Hx Endocrine/Hematology History: Reports: Hx Thyroid Disease Denies: Hx Diabetes Cardiovascular History: Denies: Hx Hypertension, Hx Pacemaker/ICD Respiratory History: Reports: Hx Asthma Denies: Hx Chronic Obstructive Pulmonary Disease (COPD) GI History: Denies: Hx Ulcer History: Reports: Other Problems/Disorders - stress incontinence Denies: Hx Renal Disease Musculoskeletal History: Denies: Hx Rheumatoid Arthritis, Hx Osteoporosis, Hx Scoliosis Sensory History: Reports: Hx Contacts or Glasses Opthamlomology History: Reports: Hx Contacts or Glasses Neurological History: Reports: Hx Headaches - migraines, Hx Migraine - Chronic, Other Neuro Impairments/Disorders - CHRONIC MIGRAINES Psychiatric History: Reports: Hx Anxiety, Hx Depression, Hx Bipolar Disorder Denies: Hx Panic Disorder - Surgical History Surgery Procedure, Year, and Place: bladder surgery, HYSTERECTOMY, LUMP REMOVED RT BREAST ATYPICAL,APPY 2006 - Immunization History Date of Tetanus Vaccine: recent Date of Influenza Vaccine: none Infectious Disease History: No Infectious Disease History: Denies: Hx Clostridium Difficile, Hx Hepatitis, Hx Human Immunodeficiency Virus (HIV), Hx of Known/Suspected MRSA, Hx Shingles, Hx Tuberculosis, Traveled Outside the in Last 30 Days - Family History Known Family History: Negative: Cardiac Disease, Diabetes - Social History Alcohol Use: None Hx Substance Use: No Substance Use Type: Reports: None Hx Tobacco Use: Yes Smoking Status (MU): Former Smoker Review of Systems Negative: Fever Positive: Nausea Positive: Other - POSITIVE: NECK PAIN AND SHOULDER PAIN Positive: Headache All Other Systems Reviewed And Are Negative: Yes Physical Exam - Summary Physical Exam Summary: Appearance: Well appearing, no pain distress Skin: warm, dry, reflects adequate perfusion Head/face: normal Eyes: EOMI, KEKE ENT: normal Neck: supple, non-tender Respiratory: CTA, breath sounds present Cardiovascular: RRR, pulses symmetrical Abdomen: non-tender, soft Musculoskeletal: normal, strength/ROM intact Neuro: normal, sensory motor intact, A&Ox3 Triage Information Reviewed: Yes Vital Signs On Initial Exam: Initial Vitals Temp Pulse Resp BP Pulse Ox 97.3 F 86 20 129/81 100 02/14/18 04:04 02/14/18 04:04 02/14/18 04:04 02/14/18 04:04 02/14/18 04:04 Vital Signs Reviewed: Yes Diagnostics - Vital Signs Vital Signs Temp Pulse Resp BP Pulse Ox 02/14/18 04:48 16 02/14/18 04:04 97.3 F 86 20 129/81 100 - Laboratory Lab Statement: Any lab studies that have been ordered have been reviewed, and results considered in the medical decision making process. Headache Course/Dx - Course Course Of Treatment: A 47 y/o female presents to the ED c/o migraine. Currently , the patient is experiencing a migraine reaching 8/10 in severity. As per triage, "Patient reports headache (migraine). Has taken medications with no relief". According to the patient, her medications are not helping as she is on this cycle. She cannot sleep and she experiences pain in her neck, head, and shoulders. Additionally she has nausea. She denies any fever. She noted that normally she has migraines on left side normally, but today it is on right side. Patient refused CAT scan of head. No laboratory scans were done. No hematology or urinalysis were done. Patient refused any labs or scans to be done. In the ED course, the patient recieved Decadron, Dilaudid, Zofran, and IV fluids. Patient only requested pain medications for her migraine headache. Patient was given pain medications as per protocol as per Dr. Rodriguez. Patient will be discharged with a diagnosis of migraine headache. Patient is to follow up with Neurology in 2-3 days. Patient is to return to ED for any new or worsening symptoms. Patient is agreeable with this plan. - Diagnoses Differential Diagnosis/HQI/PQRI: Migraine, Sinus Headache, Tension Headache Provider Diagnoses: Migraine headache Discharge - Sign-Out/Discharge Documenting (check all that apply): Patient Departure - DISCHARGE - Discharge Plan Condition: Stable Disposition: HOME Patient Education Materials: Migraine Headache (ED) Referrals: Ilana Decker MD [Primary Care Provider] - 3 Days Tasia Rodriguez MD [Medical Doctor] - 3 Days Additional Instructions: FOLLOW UP WITH NEUROLOGY IN 2-3 DAYS. RETURN TO ED FOR ANY NEW OR WORSENING SYMPTOMS. - Billing Disposition and Condition Condition: STABLE Disposition: Home - Attestation Statements Document Initiated by Scribe: Yes Documenting Scribe: Teofilo Maldonado Provider For Whom Boaz is Documenting (Include Credential): Driss Guerrero MD Scribe Attestation: Teofilo Curry scribed for Driss Guerrero MD on 02/14/18 at 0647. Scribe Documentation Reviewed: Yes Provider Attestation: The documentation as recorded by the scribe, Teofilo Joel accurately reflects the service I personally performed and the decisions made by me, Driss Guerrero MD Status of Scribe Document: Viewed
[2018-02-14] MEDS ORDERED: Dexamethasone IV* 4 MG/ML 1 ML (4 MG) IV SLOW PU ONE (05:15)
[2018-02-14] MEDS ORDERED: HYDROmorphone INJ* 2 MG/ML CARPUJECT SYRINGE IV SLOW PU ONE (05:36)
[2018-02-14] MEDS ORDERED: HYDROmorphone INJ1* 1 MG/ML SYRINGE ONE (05:53)
[2018-02-14 06:57] VITALS: BP 126/90
--- OUTSIDE RECORDS SUMMARY | 2018-02-14 08:20 | XMS REPORT | Continuity of Care Document ---
:1970 External Reference #:[id number] Author Name Velvet Fernandes Care Team Providers Name Role Phone Ilana Dyson MD Primary Care Physician Unavailable Payers Type Date Identification Numbers Payment Provider Subscriber Effective: 2016 Policy Number: [id number] [employer] Lucy Sanchez Group Number: [id number] [address] PayID: [id number] [place] [address] Effective: 2011 Policy Number: [id number] Medicare Lucy Sanchez Expires: 2016 PayID: [id number] [address] [place] [address] Expires: 2016 Policy Number: [id number] [employer] Lucy Sanchez Group Number: [id number] [address] PayID: [id number] [place] [address] Advance Directives Description No Information Available Problems Date Description Provider Status Onset: 03/29/2014 Refractory migraine Tasia Rodriguez M.D. Active Onset: 09/08/2017 Major depressive disorder, Jennifer Lind NP Active single episode, unspecified Onset: 09/08/2017 Hypothyroidism Jennifer Lind NP Active Onset: 09/08/2017 Epilepsy Jennifer Lind NP Active Onset: 09/07/2017 Visual discomfort Kaiden Mandujano M.D.,FACP Active Onset: 09/07/2017 Cellulitis of left upper limb Kaiden Mandujano M.D.,FACNany Active Onset: 09/07/2017 Headache Kaiden Mandujano M.D.,FACP Active Family History Date Family Member(s) Problem(s) Comments General No Current Problems Social History Type Date Description Comments Sex Unknown ETOH Use Denies alcohol use Tobacco Use Start: Unknown End: Patient is a former 1 cigarette per day, Unknown smoker quit 2009 Smoking Status Reviewed: 02/12/18 Patient is a former 1 cigarette per day, smoker quit 2009 Allergies, Adverse Reactions, Alerts Date Description Reaction Status Severity Comments 02/19/2013 Tramadol Joint swelling Active 02/19/2013 Cipro painful abdominal bloating Active 02/19/2013 Lyrica Nausea and Vomiting Active 02/19/2013 Gabapentin Active 02/20/2016 Buprenorphine Active 09/20/2017 Benadryl myalgias and nerve pain Active 09/20/2017 Fluoxetine skin symptoms, restless Active arms 09/20/2017 Hydrocodone headache Active 09/20/2017 Ketorolac Tromethamine Active 09/23/2017 NSAIDS gastritis Active 09/23/2017 Keflex gastritis Active Medications Medication Date Status Form Strength Qnty SIG Indications Ordering Provider Imitrex 12/13 Active Solution 4mg/0.5ML 12uni inject at [employer] System /2015 Auto-Inject ts the onset Viola, of M.D. migraine, may repeat after 1 hour if needed; max 2/day and max 2days/week Progesterone/Te 10/12 Active Cream 15mg/2mg qd Fitzsimmo stosterone /2013 Betty tucker PA Testorone Cream Active 2mg Apply 3mg Fitzsimmo /0000 topically caitlin, MICKI Louis Probiotic Daily Active Capsules PO qd Fitzsimmo /0000 Betty tucker PA Lena 3 Active Capsules 1000mg 100ca 1 po qd. ps Vitamin D-3 Active Tablets 5000Unit 8tabs 1 tab po Unknown daily in winter prn Vivelle-Dot Active Patches 0.75mg/24 2 patches Unknown Biweek HR weekly Promethazine Active Tablets 25mg 60tab 1-2 by Tasia HCL s mouth every Cowdery, 8 hours as M.D. needed ( [employer] brand only) [id number] Active Capsules Unsure once a day Unknown ei Alprazolam Active Tablets 0.25mg one by Unknown / mouth as needed for anxiety Fioricet/Codein Active Capsules 50-300-40 take one Unknown e 0000 -30mg capsule/tab let daily by mouth as needed for headaches CBD Oil Active Capsules 25mg As directed Qnasl Active Aerosol 80mcg/Act 1 spray qd Vitamin B 12 Active Lozenges 1000mcg 1 by mouth Unknown every week Lamotrigine Active Tablets 100mg 1 tab by Unknown / mouth every day Folate + B12 Active Tablets 800-1000m twice Unknown cg weekly Valacyclovir Active Tablets 500mg 1-2 tabs Laface, HCL / daily MD Ialna Levothyroxine Active Tablets 50mcg 1 by mouth Unknown Sodium every day Magnesium Oxide Active Capsules 400mg 1 by mouth Unknown -MG Supplement / every day Topiramate 12/05 Hx Caps 15mg 30cap 1 by mouth G43.919 Sprinkle s in in the Cowdery, - evening M.D. 03/19 Nasonex 02/19 Hx Suspension 50mcg/Act 17gm two sprays each Cowdery, - nostril M.D. 12/04 once daily for 2 weeks. Imitrex 12/07 Hx Solution 6mg/0.5ML 12uni inject ts twice a day Viola, - as needed M.D. 12/12 migraine max 2 doses a day and 2 days per week Metoclopramide 02/28 Hx Tablets 5mg 40tab take one to G43.919 Tasia s two tablets Cowder, - by mouth M.D. 04/05 every hours prn nausea. Imitrex 02/01 Hx Tablets 100mg 9tabs take 1 by Chandu S. mouth as Viola, - needed M.D. 12/07 migraineJuly repeat after 2 hours; maximum 2 in 24 hours, maximum 2 days a week. Syringe Luer 12/06 Hx Misc 25G X 1" 1Box Use to Yoli 3 ML inject Gnadt, FREEZER MACHINE OPERATOR - Ketoralac 02/27 15mg/ml Im once at onset of migraine. May repeat once in 8 hours on no more than 2 days a week. Ketorolac 12/02 Hx Solution 15mg/ml 16uni inject 1ml Trometh ts (15mg) Gnadt, FREEZER MACHINE OPERATOR - intramuscul 02/27 ar once at onset of severe migraine. may repeat once in 8 hours on no more than 2 days a week. Syringe Luer 12/02 Hx Misc 22G X 1" 16uni use to 3 ML ts inject Gnadam, FREEZER MACHINE OPERATOR - ketoralac 12/06 15mg /2014 intramuscul ar every 8 hours as needed as directed. use on no more than 2 days a week. Imitrex 09/15 Hx Solution 6mg/0.5ML 12uni inject 6 ts MGat onset Gnadt, FREEZER MACHINE OPERATOR - of 08/16 migraine, may repeat after 1 hour as needed; max 2/day, max 2days/week Imitrex 09/15 Hx Solution 4mg/0.5ML 12uni inject at [place] ts the onset Cowdery, - of M.D. 12/13 migraine, may repeat after 1 hour if needed; max 2/day and max 2days/week Imitrex 09/15 Hx Solution 4mg/0.5ML 12uni inject at Tasia Statdose Auto-Inject ts the onset Cowdery, - of M.D. 02/01 migraine, may repeat after 1 hour if needed; max 2/day, max 2days/wk Zomig 04/06 Hx Solution 5mg 36uni 1 squirt to ts nostril, Gnadt, FREEZER MACHINE OPERATOR - prn 09/30 migraine, may repeat after 2 hours, maximum twice a day, maximum 2 days a week. Carisoprodol 04/02 Hx 250mg 1 cap po q 6h prn Cowdery, - M.D. 10/16 Zomig Nasal 04/02 Hx Solution 5mg 36uni 1 squirt to ts nostril, Cowdery, - prn M.D. 04/06 migraine, may repeat after 2 hours, maximum twice a day, maximum 2 days a week. Cortef 02/19 Hx Tablets 5mg 105ta 1 po bid bs (hold) Jennifer, - 05/18/13 M.D. 06/01 Zofran Odt 02/19 Hx Tablets 8mg 60tab take 1 po Dispers s q8 hours, Jennifer, - prn nausea M.D. 08/22 Sumatriptan 12/11 Hx Tablets 100mg 12tab take 1 by Tasia Succinate s mouth, as Jennifer, - needed for M.D. 04/02 migraine, July repeat after 2 hours Prednisone 10/22 Hx Tablets 20mg 6tabs 3 po qam Chandu S. for 1 d Viola, - then 2 qam M.D. 04/02 for 1 d then 1 qam for 1 day Sumatriptan 08/18 Hx Solution 4mg/0.5ML 12uni inject 1 Tasia ts subcutaneou Jennifer, - arianay, prn M.D. 12/11 migraine, July repeat after 2 hours, maximum 2 days a week. Sumatriptan 07/28 Hx Solution 6mg/0.5ML 6unit Inject 1 Tasia Succinate s vial sq prn Jennifer, Refill - severe M.D. 08/18 headache. July repeat x 1 after 1 hour. Maximum 2 doses daily Sumatriptan 07/01 Hx Solution 6mg/0.5ML 6unit inject 1 Tasia Succinate s vial Jennifer, - subcutaneou M.D. 08/18 sly as needed for severe headache. may repeat 1 in 1 hour. no more than 2 doses/day. needs injector Tramadol HCL 03/31 Hx Tablets 50mg 15tab take 1 by Tasia s mouth every [place], - 6 hours as M.D. 02/19 need for severe headache [place] 02/12 Hx Tablets 5-325mg 3tabs take 1 po q6 hours, Jennifer, - prn severe M.D. 02/19 headache Cyanocobalamin Hx Solution 1000mcg/M SQ Q M Fitzsimmo /0000 L ns, - MICKI Hernández 04/05 Promethazine Hx Tablets 25mg 90tab 1 tab by Yoli HCL /0000 s mouth every Gnadt, FREEZER MACHINE OPERATOR - 8 hours, as 02/28 needed for nausea Tamsulosin HCL Hx Capsules 0.4mg 1 PO qd Unknown / - 04/02 [place] Thyroid Hx Tablets 30mg qd Fitzsimmo /0000 ns, - MICKI Hernández 01/01 Valacyclovir Hx Tablets 500mg 1 tab po Fitzsimmo HCL /0000 prn ns, - MICKI Hernández 07/13 Lamotrigine Hx Tablets 75mg 1 PO qd- Fitzsimmo /0000 ns, - MICKI Hernández 12/04 Progesterone Hx Capsules 100mg 1 PO qd Fitzsimmo /0000 ns, - MICKI Hernández 08/16 Vivelle-Dot Hx Patches 0.1mg/24H 2 patches a Fitzsimmo /0000 Biweek R week ns, - MICKI Hernández 05/18 Nasonex Hx Suspension 50mcg/Act 2 sprays Fitzsimmo /0000 each ns, - nostril MICKI Hernández 02/27 (seasonal) Lorazepam Hx Tablets 1mg 1/2-1 tab Fitzsimmo /0000 po daily ns, - prn MICKI Hernández 08/28 Butalbital/Acet Hx Capsules 50-325-40 prn Fitzsimmo aminophen/Caffe /0000 -30mg ns, ine/Codeine - MICKI Hernández 02/19 Estrace Hx Cream 0.1mg/GM 3 x's a Fitzsimmo /0000 week ns, - MICKI Hernández 08/28 Proventil HFA Hx Aerosol 108(90Bas 1unit 2 puffs po Fitzsimmo /0000 e) s q 4 hours ns, - mcg/Act prn MICKI Hernández 07/13 Vitamin B Hx Capsules 1 po qd Unknown Complex-C - 05/18 Magnesium 00/00 Hx Tablets 400mg 1 PO qd Unknown Citrate /0000 - 12/02 Folic Acid 00/00 Hx Tablets 800mcg 90tab 1 po qd Unknown /0000 s - 07/17 Vitamin B 6 00/00 Hx Tablets (?) 90tab 1 tab po Unknown /0000 s daily - 12/01 Rapaflo 00/00 Hx Capsules 8mg 1 po qd Unknown /0000 - 05/18 [place] 00/ Hx Patches 0.1mg/24H 4unit apply 1 Unknown /0000 Weekly R s patch, once - weekly 09/03 Famvir 00 Hx Tablets 250mg 1 tab by Unknown /0000 mouth 2x - per day 01/09 Vitamin B 00/00 Hx Tablets 1 by mouth Unknown Complex /0000 every day - 12/04 Ketorolac 00 Hx Tablets 10mg take 1 by Unknown Tromethamine /0000 mouth every - 8 hours as 02/27 needed for /2014 migraine. Wellbutrin 00/00 Hx Tablets 100mg 1 by mouth Unknown /0000 every day - 04/05 Famvir 00/ Hx Tablets 250mg 1 by mouth Unknown /0000 a day, two - times a day 01/01 when flare /2017 up. Methylfolate 00/00 Hx 800mcg qd Unknown /0000 - 02/18 Nasonex 00/00 Hx Suspension 50mcg/Act 1 spray isma Unknown /0000 each side - every day 02/18 Lamotrigine 00/00 Hx Tablets 100mg 1 by mouth Unknown /0000 every day - 09/22 Magnesium 00/00 Hx Take every Unknown Threonate /0000 day... - 01/01 Hydromorphone 00/00 Hx Suppository 3mg as needed Unknown HCL /0000 - 02/11 Doxycycline 00/00 Hx Capsules 100mg one tablet Unknown Hyclate /0000 twice daily - for 14 09/22 days. L-Methylfolate 00/00 Hx Tablets 400mg 1 by mouth Unknown Calcium /0000 every week - 09/24 Medications Administered in Office Medication Date Status Form Strength Qnty SIG Indications Ordering Provider Injection 01/01 Administered Injection Tasia Onabotulinumtoxin /2017 Demond Rodriguez, 1 Unit M.DSuhas Injection 09/25 Administered Injection Tasia Onabotulinumtoxin /2017 Cowdery, A, 1 Unit M.D. Injection 06/19 Administered Injection Tasia Onabotulinumtoxin /2017 Cowdery, A, 1 Unit M.D. Injection 03/20 Administered Injection Tasia Onabotulinumtoxin /2017 Cowdery, A, 1 Unit M.D. Injection 12/05 Administered Injection Tasia Onabotulinumtoxin /2016 Cowdery, A, 1 Unit M.D. Injection 08/29 Administered Injection Tasia Onabotulinumtoxin /2016 Cowdery, A, 1 Unit M.D. Injection 02/16 Administered Injection Tasia Onabotulinumtoxin /2015 Burchill, A, 1 Unit FREEZER MACHINE OPERATOR Injection 10/18 Administered Injection Tasia Onabotulinumtoxin /2015 Cowdery, A, 1 Unit M.D. Injection 07/17 Administered Injection Tasia Onabotulinumtoxin /2015 Cowdery, A, 1 Unit M.D. Injection 04/18 Administered Injection Tasia Onabotulinumtoxin /2015 Cowdery, A, 1 Unit M.D. Injection 01/10 Administered Injection Yoli Onabotulinumtoxin /2014 Gnadt, FREEZER MACHINE OPERATOR A, 1 Unit Injection 10/06 Administered Injection Yoli Onabotulinumtoxin /2014 Gnadt, FREEZER MACHINE OPERATOR A, 1 Unit Injection 07/14 Administered Injection Yoli Onabotulinumtoxin /2014 Gnadt, FREEZER MACHINE OPERATOR A, 1 Unit Injection 03/29 Administered Injection Tasia Onabotulinumtoxin /2014 Cowdery, A, 1 Unit M.D. Injection 12/14 Administered Injection Tasia Onabotulinumtoxin /2013 Cowdery, A, 1 Unit M.D. Injection 09/03 Administered Injection Tasia Onabotulinumtoxin /2013 Cowdery, A, 1 Unit M.D. Injection 09/03 Administered Injection Tasia Onabotulinumtoxin /2013 Cowdery, A, 1 Unit M.D. Injection 05/18 Administered Injection Tasia Onabotulinumtoxin /2013 Cowdery, A, 1 Unit M.D. Injection 05/18 Administered Injection Tasia Onabotulinumtoxin /2013 Cowdery, A, 1 Unit M.D. Injection 02/19 Administered Injection Tasia Onabotulinumtoxin /2012 Cowdery, A, 1 Unit M.D. Injection 02/19 Administered Injection Tasia Onabotulinumtoxin /2012 Cowdery, A, 1 Unit M.D. Injection 11/19 Administered Injection Tasia Onabotulinumtoxin /2012 Cowdery, A, 1 Unit M.D. Injection 11/19 Administered Injection Tasia Onabotulinumtoxin /2012 Cowdery, A, 1 Unit M.D. Injection 08/18 Administered Injection Tasia Onabotulinumtoxin /2012 Cowdery, A, 1 Unit M.D. Injection 08/18 Administered Injection Tasia Onabotulinumtoxin /2012 Cowdery, A, 1 Unit M.D. Injection 05/19 Administered Injection Tasia Onabotulinumtoxin /2012 Cowdery, A, 1 Unit M.D. Injection 05/19 Administered Injection Tasia Onabotulinumtoxin /2012 Cowdery, A, 1 Unit M.D. Injection 02/12 Administered Injection Tasia Onabotulinumtoxin /2011 Cowdery, A, 1 Unit M.D. Injection 02/12 Administered Injection Tasia Onabotulinumtoxin /2011 Cowdery, A, 1 Unit M.D. Injection 11/06 Administered Injection Tasia Onabotulinumtoxin /2011 Cowdery, A, 1 Unit M.D. Injection 11/06 Administered Injection Tasia Onabotulinumtoxin /2011 Cowdery, A, 1 Unit M.D. Immunizations Description No Information Available Vital Signs Date Vital Result Comment 02/12/2018 12:08pm Height 66 inches 5'6" Weight 132.00 lb Heart Rate 70 /min BP Systolic 100 mmHg BP Diastolic 78 mmHg BMI (Body Mass Index) 21.3 kg/m2 01/01/2018 11:11am Height 66 inches 5'6" Weight 128.00 lb Heart Rate 72 /min BP Systolic Sitting 98 mmHg BP Diastolic Sitting 68 mmHg BMI (Body Mass Index) 20.7 kg/m2 09/25/2017 10:12am Height 66 inches 5'6" Weight 128.00 lb Heart Rate 72 /min BP Systolic Sitting 110 mmHg BP Diastolic Sitting 78 mmHg Respiratory Rate 16 /min BMI (Body Mass Index) 20.7 kg/m2 09/23/2017 4:20pm Height 66 inches 5'6" Weight 128.38 lb Heart Rate 72 /min BP Systolic Sitting 110 mmHg BP Diastolic Sitting 76 mmHg Respiratory Rate 14 /min Body Temperature 98.2 F BMI (Body Mass Index) 20.7 kg/m2 06/19/2017 10:05am Height 67 inches 5'7" Weight 130.12 lb Heart Rate 74 /min BP Systolic Sitting 110 mmHg BP Diastolic Sitting 72 mmHg Respiratory Rate 16 /min BMI (Body Mass Index) 20.4 kg/m2 03/20/2017 10:14am Height 67 inches 5'7" Weight 130.00 lb Heart Rate 72 /min BP Systolic 100 mmHg BP Diastolic 78 mmHg Respiratory Rate 14 /min BMI (Body Mass Index) 20.4 kg/m2 12/05/2016 9:08am Height 67 inches 5'7" Weight 130.25 lb Heart Rate 68 /min BP Systolic Sitting 122 mmHg BP Diastolic Sitting 74 mmHg Respiratory Rate 16 /min BMI (Body Mass Index) 20.4 kg/m2 09/28/2016 11:17am Height 67 inches 5'7" Weight 129.50 lb Heart Rate 68 /min BP Systolic Sitting 110 mmHg BP Diastolic Sitting 74 mmHg Respiratory Rate 14 /min BMI (Body Mass Index) 20.3 kg/m2 08/29/2016 9:15am Height 67 inches 5'7" Weight 130.00 lb Heart Rate 68 /min BP Systolic Sitting 112 mmHg BP Diastolic Sitting 70 mmHg Respiratory Rate 14 /min BMI (Body Mass Index) 20.4 kg/m2 02/20/2016 9:06am Height 67 inches 5'7" Weight 133.00 lb Heart Rate 64 /min BP Systolic Sitting 104 mmHg BP Diastolic Sitting 78 mmHg Respiratory Rate 14 /min BMI (Body Mass Index) 20.8 kg/m2 02/17/2016 11:10am Height 67 inches 5'7" Weight 130.00 lb Heart Rate 80 /min BP Systolic Sitting 100 mmHg BP Diastolic Sitting 62 mmHg BMI (Body Mass Index) 20.4 kg/m2 10/19/2015 10:17am Height 67 inches 5'7" Weight 130.00 lb Heart Rate 88 /min BP Systolic Sitting 120 mmHg BP Diastolic Sitting 72 mmHg Respiratory Rate 14 /min BMI (Body Mass Index) 20.4 kg/m2 07/18/2015 3:00pm Height 67 inches 5'7" Weight 128.12 lb Heart Rate 86 /min BP Systolic Sitting 120 mmHg BP Diastolic Sitting 70 mmHg Respiratory Rate 14 /min BMI (Body Mass Index) 20.1 kg/m2 04/18/2015 2:56pm Height 67 inches 5'7" Weight 130.00 lb Heart Rate 88 /min BP Systolic Sitting 120 mmHg BP Diastolic Sitting 66 mmHg Respiratory Rate 14 /min BMI (Body Mass Index) 20.4 kg/m2 04/06/2015 3:38pm Height 67 inches 5'7" Weight 132.00 lb Heart Rate 84 /min BP Systolic Sitting 112 mmHg BP Diastolic Sitting 78 mmHg Respiratory Rate 14 /min Body Temperature 98.2 F BMI (Body Mass Index) 20.7 kg/m2 02/28/2015 2:35pm Height 67 inches 5'7" Weight 132.00 lb Heart Rate 72 /min BP Systolic Sitting 122 mmHg BP Diastolic Sitting 74 mmHg Respiratory Rate 16 /min BMI (Body Mass Index) 20.7 kg/m2 01/10/2015 11:09am Height 67 inches 5'7" Weight 130.00 lb Heart Rate 72 /min BP Systolic Sitting 110 mmHg BP Diastolic Sitting 70 mmHg Respiratory Rate 14 /min BMI (Body Mass Index) 20.4 kg/m2 12/02/2014 9:46am Height 67 inches 5'7" Heart Rate 72 /min BP Systolic Sitting 110 mmHg BP Diastolic Sitting 68 mmHg Respiratory Rate 16 /min 10/06/2014 11:04am Height 67 inches 5'7" Weight 129.00 lb Heart Rate 66 /min BP Systolic Sitting 98 mmHg BP Diastolic Sitting 70 mmHg Respiratory Rate 17 /min BMI (Body Mass Index) 20.2 kg/m2 08/23/2014 2:12pm Height 67 inches 5'7" Weight 129.00 lb Heart Rate 76 /min BP Systolic Sitting 122 mmHg BP Diastolic Sitting 76 mmHg Respiratory Rate 16 /min BMI (Body Mass Index) 20.2 kg/m2 07/14/2014 11:17am Height 67 inches 5'7" Heart Rate 72 /min BP Systolic Sitting 110 mmHg BP Diastolic Sitting 68 mmHg Respiratory Rate 16 /min 03/29/2014 11:13am Height 67 inches 5'7" Weight 133.00 lb Heart Rate 76 /min BP Systolic Sitting 114 mmHg BP Diastolic Sitting 82 mmHg Respiratory Rate 16 /min BMI (Body Mass Index) 20.8 kg/m2 12/14/2013 11:31am Height 67 inches 5'7" Weight 133.00 lb Heart Rate 80 /min Respiratory Rate 16 /min BMI (Body Mass Index) 20.8 kg/m2 10/19/2013 11:22am Height 67 inches 5'7" Weight 133.00 lb Heart Rate 80 /min BP Systolic Sitting 120 mmHg BP Diastolic Sitting 70 mmHg Respiratory Rate 16 /min BMI (Body Mass Index) 20.8 kg/m2 09/03/2013 1:18pm Height 67 inches 5'7" Weight 133.00 lb Heart Rate 84 /min BP Systolic Sitting 110 mmHg BP Diastolic Sitting 68 mmHg Respiratory Rate 16 /min BMI (Body Mass Index) 20.8 kg/m2 06/01/2013 11:33am Heart Rate 67 /min BP Systolic Sitting 120 mmHg BP Diastolic Sitting 70 mmHg Respiratory Rate 16 /min 05/18/2013 1:16pm Heart Rate 67 /min BP Systolic Sitting 105 mmHg BP Diastolic Sitting 60 mmHg Respiratory Rate 16 /min 04/02/2013 12:20pm Heart Rate 76 /min BP Systolic Sitting 100 mmHg BP Diastolic Sitting 76 mmHg Respiratory Rate 12 /min 02/19/2013 1:15pm Heart Rate 67 /min BP Systolic Sitting 120 mmHg BP Diastolic Sitting 60 mmHg Respiratory Rate 18 /min Results Test Date Facility Test Result H/L Range Note Urinalysis 07/26/2013 [facility] Urine Color Yellow N [address] [place] [address] [phone] Urine Appearance Clear N Urine Specific Maidens 1.010 N 1.010-1.030 Urine Esterase Negative N Negative Urine Nitrate Negative N Negative Urine Urobilinogen Negative E.U./dL N Negative Urine Protein Negative mg/dL N Negative Urine pH 7.0 N 5-9 Urine Blood Negative N Negative Urine Ketones Negative mg/dL N Negative Urine Bilirubin Negative N Negative Urine Glucose Negative mg/dL N Negative Comp Metabolic Panel 07/26/2013 [facility] Sodium 136 mmol/L N 133-145 [address] [place] [address] [phone] Potassium 3.7 mmol/L N 3.7-5.6 Chloride 102 mmol/L N 101-111 Co2 Carbon Dioxide 28 mmol/L N 22-32 Anion Gap 6 mmol/L N 2-11 Glucose 90 mg/dL N 70-100 Blood Urea Nitrogen 16 mg/dL N 6-24 Creatinine 0.82 mg/dL N 0.51-0.95 BUN/Creatinine Ratio 19.5 N 8-20 Calcium 9.6 mg/dL N 8.6-10.3 Total Protein 6.6 g/dL N 6.4-8.9 Albumin 4.7 g/dL N 3.2-5.2 Globulin 1.9 g/dL Low 2-4 Albumin/Globulin Ratio 2.5 N 1-3 Total Bilirubin 0.40 mg/dL N 0.2-1.0 Alkaline Phosphatase 37 U/L N 34-104 Alt 19 U/L N 7-52 Ast 19 U/L N 13-39 Egfr Non- 76.5 N >60 Egfr 98.3 N >60 1 Laboratory test 07/26/2013 [facility] C Reactive < 1.00 N < 5.00 [address] Protein mg/[place] [address] [phone] CBC Auto Diff 07/26/2013 [facility] White Blood 6.0 N 4.8- 10.[address] Count 10^3/[place] [address] [phone] Red Blood Count 3.96 10^6/uL Low 4.0-5.4 Hemoglobin 13.5 g/dL N 12.0-16.0 Hematocrit 38 % N 35-47 Mean Corpuscular Volume 96 fL N 80-97 Mean Corpuscular Hemoglobin 34 pg High 27-31 Mean Corpuscular HGB Conc 36 g/dL N 31-36 Red Cell Distribution Width 12 % N 10.5-15 Platelet Count 167 10^3/uL N 150-450 Mean Platelet Volume 9 um3 N 7.4-10.4 Abs Neutrophils 3.1 10^3/uL N 1.5-7.7 Abs Lymphocytes 2.3 10^3/uL N 1.0-4.8 Abs Monocytes 0.5 10^3/uL N 0-0.8 Abs Eosinophils 0.1 10^3/uL N 0-0.6 Abs Basophils 0.1 10^3/uL N 0-0.2 Abs Nucleated RBC 0.01 10^3/uL N Granulocyte % 51.6 % N 38-83 Lymphocyte % 38.3 % N 25-47 Monocyte % 7.7 % N 1-9 Eosinophil % 1.6 % N 0-6 Basophil % 0.8 % N 0-2 Nucleated Red Blood Cells % 0.1 N Laboratory test 07/26/2013 [facility] Erythrocyte Sed 6 mm/Hr N 0-[address] Rate [place] [id number] [phone] 1 Because ethnic data is not always readily available, this report includes an eGFR for both -Americans and non- Americans. The National Kidney Disease Education Program (NKDEP) does not endorse the use of the MDRD equation for patients that are not between the ages of 18 and 70, are , have extremes of body size, muscle mass, or nutritional status, or are non- or non-. According to the National Kidney Foundation, irrespective of diagnosis, the stage of the disease is based on the level of kidney function: Stage Description GFR(mL/min/1.73 m(2)) 1 Kidney damage with normal or decreased GFR 90 2 Kidney damage with mild decrease in GFR 60-89 3 Moderate decrease in GFR 30-59 4 Severe decrease in GFR 15-29 5 Kidney failure <15 (or dialysis) 2 Acute inflammation: >10.00 Procedures Date Code Description Status 01/01/2018 20289 Chemodenervation Of Muscles Innervated By Facial Completed Nerves, Bilat 09/25/2017 03466 Chemodenervation Of Muscles Innervated By Facial Completed Nerves, Bilat 06/19/2017 48404 [place]modenervation Of Muscles Innervated By Facial Completed Nerves, Bilat 03/20/2017 40234 Chemodenervation Of Muscles Innervated By Facial Completed Nerves, Bilat 12/05/2016 59775 [place]modenervation Of Muscles Innervated By Facial Completed Nerves, Bilat 08/29/2016 59101 [place]modenervation Of Muscles Innervated By Facial Completed Nerves, Bilat 02/17/2016 56195 [place]modenervation Of Muscles Innervated By Facial Completed Nerves, Bilat 10/19/2015 20925 [place]modenervation Of Muscles Innervated By Facial Completed Nerves, Bilat 07/18/2015 17787 [place]modenervation Of Muscles Innervated By Facial Completed Nerves, Bilat 04/18/2015 95476 Chemodenervation Of Muscles Innervated By Facial Completed Nerves, Bilat 01/10/2015 59459 [place]modenervation Of Muscles Innervated By Facial Completed Nerves, Bilat 10/06/2014 36536 Chemodenervation Of Muscles Innervated By Facial Completed Nerves, Bilat 07/14/2014 32083 Chemodenervation Of Muscles Innervated By Facial Completed Nerves, Bilat 03/29/2014 15901 Chemodenervation Of Muscles Innervated By Facial Completed Nerves, Bilat 12/14/2013 98232 Chemodenervation Of Muscles Innervated By Facial Completed Nerves, Bilat 09/03/2013 40123 [place]modenervation Of Muscles Innervated By Facial Completed Nerves, Bilat 05/18/2013 67200 [place]modenervation Of Muscles Innervated By Facial Completed Nerves, Bilat 02/19/2013 49981 Chemodenervation Of Muscles Innervated By Facial Completed Nerves, Bilat 11/19/2012 87423 Chemodenervation Of Muscles Innervated By Facial Completed Nerves, Bilat 11/03/2012 [id number] Mammogram Completed 08/18/2012 46053 Chemodenervation Of Muscles Innervated By Facial Completed Nerves, Bilat 05/19/2012 00186 [place]modenervation Of Muscles Innervated By Facial Completed Nerves, Bilat 02/13/2012 90362 Destruction W/Neurolytic Agent,Neck Muscles Completed 02/13/2012 02516 Destruction W/Neurolytic Agent, Facial Nerve Muscle, Completed Unilateral 11/07/2011 03288 Destruction W/Neurolytic Agent,Neck Muscles Completed 11/07/2011 74569 Destruction W/Neurolytic Agent, Facial Nerve Muscle, Completed Unilateral Encounters Type Date Location Provider Dx Diagnosis Office Visit 09/25/2017 [facility] Tasia Rodriguez, G43.919 Migraine, unsp, 10:00a Clinic M.D. intractable, without status migrainosus A69.20 Lyme disease, unspecified Office Visit 09/23/2017 4:20p [facility] Ramon Gutierrez A69.20 Lyme disease, For Infectious Gianna Colunga unspecified Diseases R53.83 Other fatigue [facility]114 Cellulitis of 10:36a Assoc,kaleb Lind, [employer]PER[employer] left upper limb Hospitalists G40.909 Epilepsy, unsp, not intractable, without status epilepticus F32.9 Major depressive disorder, single episode, unspecified Office Visit 09/09/2017 8:26a [facility] Emre Gutierrez R50.9 Fever, Infectious Gianna Colunga unspecified Diseases R51 Headache R21 Rash and other nonspecific skin eruption [facility] Cellulitis of 10:34a 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 intractable, [facility] without status migrainosus M54.2 Cervicalgia G50.0 Trigeminal neuralgia Office Visit 09/28/2016 [place] Tasia Dillonchanning G43.919 Migraine, unsp, 11:00a Neurologic M.D. intractable, [facility] without status migrainosus Office Visit 02/20/2016 [place] Tasia Dillonchanning, G43.919 Migraine, unsp, 9:00a Neurologic M.D. intractable, [facility] without status migrainosus M54.2 Cervicalgia Office Visit 04/06/2015 [facility] Ramon Gutierrez A60.04 Herpesviral 3:40p For Miracle Colunga M.D. vulvovaginitis Diseases Office Visit 02/28/2015 [place] Tasia Dillonchanning, G43.919 Migraine, unsp, 2:30p Neurologic M.D. 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 Status Migrainosus 728.85 Spasm Muscle Office Visit 10/19/2013 11:00a [place] [facility] Tasia Rodriguez, 346.91 Migraine Unspec [facility] [employer] M.D. W/ Intractable W/O Status Migrainosus 728.85 Spasm Muscle Office Visit 06/01/2013 11:30a [place] [facility] Tasia Rodriguez, 346.91 Migraine Unspec [facility] [employer] M.D. W/ Intractable W/O Status Migrainosus 728.85 Spasm Muscle Office Visit 04/02/2013 11:45a [place] [facility] Tasia Rodriguez, 346.91 Migraine Unspec [facility] [employer] M.D. W/ Intractable W/O Status Migrainosus 724.2 Lumbago Office Visit 02/19/2013 1:00p [place] [facility] Tasia Rodriguez, 346.91 Migraine Unspec [facility] [employer] M.D. W/ Intractable W/O Status Migrainosus Office Visit 08/18/2012 11:15a [place] [facility] Tasia Rodriguez, 346.91 Migraine Unspec [facility] [employer] M.D. W/ Intractable W/O Status Migrainosus Office Visit 06/30/2012 10:45a [place] [facility] Tasia Rodriguez, 346.91 Migraine Unspec [facility] [employer] M.D. W/ Intractable W/O Status Migrainosus Office Visit 03/31/2012 2:00p [place] [facility] Tasia Rodriguez, 346.91 Migraine Unspec [facility] [employer] M.D. W/ Intractable W/O Status Migrainosus Office Visit 02/13/2012 1:15p [place] [facility] Tasia Rodriguez, 346.91 Migraine Unspec [facility] [employer] M.D. W/ Intractable W/O Status Migrainosus Office Visit 12/19/2011 1:00p [place] [facility] Tasia Rodriguez, 346.91 Migraine Unspec [facility] [employer] M.D. W/ Intractable W/O Status Migrainosus Office Visit 11/07/2011 11:15a [place] [facility] Tasia Rodriguez, 346.91 Migraine Unspec [facility] [employer] M.D. W/ Intractable W/O Status Migrainosus 300.00 Anxiety State Unspec Plan of Treatment Future Appointment(s):07/11/2018 11:00 am - Tasia Rodriguez M.D. at [place] [facility]04/09/2018 11:00 am [facility] - Tasia Rodriguez M.D.G43.919 Migraine, unspecified, intractable, without status migrainosFollow up:as scheduled for botoxRecommendations:Consider: monoclonal antibody Aimovig - or Ajovy - has co -pay card and needs private insurance
== END 2018-02-14 07:02 | disposition home or self-care (01) ==
LOC: ED 04:02
DX: G43.909 Migraine, unspecified, not intractable, without status migrainosus (principal); Z87.891 Personal history of nicotine dependence; E07.9 Disorder of thyroid, unspecified; F32.9 Major depressive disorder, single episode, unspecified
CPT/HCPCS: 96361; 96374; 96375; 99282; J1100; J1170; J2405

== ENCOUNTER 2018-06-03 22:04 | Emergency (ER) | payer MEDICARE ==
[2018-06-04] MEDS ORDERED: Magnesium Sulfate 2 GM IV* 2 GM/50 ML BAG IVPB ONE (00:31)
[2018-06-04] MEDS ORDERED: NS 0.9% 1000 ML** 1,000 ML IV ONE (00:31)
[2018-06-04] MEDS ORDERED: HYDROmorphone INJ1* 1 MG/ML SYRINGE IV SLOW PU ONE ×2 (00:31→02:02)
--- NOTE | 2018-06-04 01:20 | ED ---
Headache - HPI Summary HPI Summary: 47-year-old female presents with headache for the past day. She she tried all of her normal migraine medications which is fiorcet and sumatriptan with no relief. States when her pain gets this bad she has to come here for pain medication protocol that was prescribed by Dr. bowman. She denies any fevers. She admits to photophobia. No change in vision. headache is typically for her migraines. pain is located on the right side of head. pain is 8 out of 10. Not worst headache of life. Denies any neck stiffness. She admits to some nausea and vomiting. States the nausea is now control. Denies any sinus pressure or recent illness. declined lab work and imaging. - History Of Current Complaint Chief Complaint: EDHeadache Stated Complaint: IM HAVING A REALLY BAD MIGRAINE PER PT Time Seen by Provider: 06/04/18 00:25 - Allergies/Home Medications Allergies/Adverse Reactions: Allergies Allergy/AdvReac Type Severity Reaction Status Date / Time diphenhydramine AdvReac Intermediate Numbness Verified 06/03/18 22:12 [From Benadryl] And Tingling tramadol AdvReac Intermediate Muscle Ache Verified 06/03/18 22:12 cephalexin [From Keflex] AdvReac GI Upset Verified 06/03/18 22:12 ciprofloxacin [From Cipro] AdvReac Abdominal Verified 06/03/18 22:12 Pain gabapentin [From Neurontin] AdvReac Muscle Ache Verified 06/03/18 22:12 ketorolac [From Toradol] AdvReac Muscle Ache Verified 06/03/18 22:12 morphine AdvReac MAKES Verified 06/03/18 22:12 LIMBS GO NUMB NSAIDS (Non-Steroidal AdvReac GI Upset Verified 06/03/18 22:12 Anti-Inflamma pregabalin [From Lyrica] AdvReac Muscle Ache Verified 06/03/18 22:12 PMH/Surg Hx/FS Hx/Imm Hx Endocrine/Hematology History: Reports: Hx Thyroid Disease Denies: Hx Diabetes Cardiovascular History: Denies: Hx Hypertension, Hx Pacemaker/ICD Respiratory History: Reports: Hx Asthma Denies: Hx Chronic Obstructive Pulmonary Disease (COPD) GI History: Denies: Hx Ulcer History: Reports: Other Problems/Disorders - stress incontinence Denies: Hx Renal Disease Musculoskeletal History: Denies: Hx Rheumatoid Arthritis, Hx Osteoporosis, Hx Scoliosis Sensory History: Reports: Hx Contacts or Glasses Opthamlomology History: Reports: Hx Contacts or Glasses Neurological History: Reports: Hx Headaches - migraines, Hx Migraine - Chronic, Other Neuro Impairments/Disorders - CHRONIC MIGRAINES Psychiatric History: Reports: Hx Anxiety, Hx Depression, Hx Bipolar Disorder Denies: Hx Panic Disorder - Surgical History Surgery Procedure, Year, and Place: bladder surgery, HYSTERECTOMY, LUMP REMOVED RT BREAST ATYPICAL,APPY 2006 - Immunization History Date of Tetanus Vaccine: recent Date of Influenza Vaccine: none Immunizations Up to Date: Yes Infectious Disease History: No Infectious Disease History: Denies: Hx Clostridium Difficile, Hx Hepatitis, Hx Human Immunodeficiency Virus (HIV), Hx of Known/Suspected MRSA, Hx Shingles, Hx Tuberculosis, Traveled Outside the [place] in Last 30 Days - Family History Known Family History: Negative: Cardiac Disease, Diabetes - Social History Alcohol Use: None Hx Substance Use: No Substance Use Type: Reports: None Hx Tobacco Use: Yes Smoking Status (MU): Former Smoker Review of Systems Negative: Fever Positive: Photophobia Negative: Chest Pain Negative: Shortness Of Breath Positive: Headache All Other Systems Reviewed And Are Negative: Yes Physical Exam Triage Information Reviewed: Yes Vital Signs On Initial Exam: Initial Vitals Temp Pulse Resp BP Pulse Ox 97.1 F 76 16 126/84 100 06/03/18 22:05 06/03/18 22:05 06/03/18 22:05 06/03/18 22:05 06/03/18 22:05 Vital Signs Reviewed: Yes Appearance: Positive: Pain Distress Skin: Positive: Warm, Dry Head/Face: Positive: Normal Head/Face Inspection Eyes: Positive: Normal, EOMI, KEKE, Conjunctiva Clear ENT: Positive: Normal ENT inspection, Pharynx normal, TMs normal Respiratory/Lung Sounds: Positive: Clear to Auscultation, Breath Sounds Present Cardiovascular: Positive: Normal, RRR Abdomen Description: Positive: Nontender, Soft Bowel Sounds: Positive: Present Musculoskeletal: Positive: Normal Neurological: Positive: Sensory/Motor Intact, Alert, Oriented to Person Place, Time, CN Intact II-III Psychiatric: Positive: Normal Diagnostics - Vital Signs Vital Signs Temp Pulse Resp BP Pulse Ox 06/04/18 00:54 20 06/03/18 22:05 97.1 F 76 16 126/84 100 - Laboratory Lab Statement: Any lab studies that have been ordered have been reviewed, and results considered in the medical decision making process. Re-Evaluation - Re-Evaluation First Eval Re-Evaluation Time: 02:02 Change: Improved Comment: pain is less but not gone Second Eval Re-Evaluation Time: 02:56 Change: Improved Comment: feeling better Headache Course/Dx - Course Course Of Treatment: 47-year-old female presents with headache for the past day. She she tried all of her normal migraine medications which is fiorcet and sumatriptan with no relief. States when her pain gets this bad she has to come here for pain medication protocol that was prescribed by Dr. bowman. She denies any fevers. She admits to photophobia. No change in vision. headache is typically for her migraines. pain is located on the right side of head. pain is 8 out of 10. Not worst headache of life. Denies any neck stiffness. She admits to some nausea and vomiting. States the nausea is now control. Denies any sinus pressure or recent illness. On exam has normal neuro exam. Gave Dilaudid and fluids and magnesium and feeling better. will discharge to follow up with dr rodriguez. patient understand and agrees with plan. - Diagnoses Differential Diagnosis/HQI/PQRI: Migraine, Tension Headache, Viral Syndrome Provider Diagnoses: Migraine Discharge - Sign-Out/Discharge Documenting (check all that apply): Patient Departure Patient Received Moderate/Deep Sedation with Procedure: No - Discharge Plan Condition: Good Disposition: HOME Patient Education Materials: Migraine Headache (ED) Referrals: Ilana Decker MD [Primary Care Provider] - Tasia Rodriguez MD [Medical Doctor] - Additional Instructions: Follow up with neurology Return to ED if develop any new or worsening symptoms - Billing Disposition and Condition Condition: GOOD Disposition: Home
[2018-06-04 03:13] VITALS: BP 115/85
== END 2018-06-04 03:13 | disposition home or self-care (01) ==
LOC: ED 22:04
DX: G43.909 Migraine, unspecified, not intractable, without status migrainosus (principal); Z87.891 Personal history of nicotine dependence; Z88.6 Allergy status to analgesic agent; Z88.1 Allergy status to other antibiotic agents
CPT/HCPCS: 96361; 96365; 96375; 96376; 99282; J1170; J3475

== ENCOUNTER 2018-08-30 03:54 | Emergency (ER) | payer MEDICARE, OTHER ==
--- NOTE | 2018-08-30 04:13 | ED ---
Headache - HPI Summary HPI Summary: This patient is a 47 year old female presenting to [facility] with a chief complaint of migraines since yesterday morning. She states the pain is on the left side. She has tried all her medications at home without relief. Has taken Imitrex, fioricet, xanax. She states she has chronic migraines 2-3 times a week since she was 8 years old. She says the pain is normally on the right side. She rates her pain 8/10 in severity. She denies numbness/tingling in her hands. - History Of Current Complaint Chief Complaint: EDHeadache Stated Complaint: "HEADACHE" PER PT Time Seen by Provider: 08/30/18 04:06 Hx Obtained From: Patient Onset/Duration: Started hours ago Initially Headache Was: Moderate Currently Pain Is: Moderate Timing: Hours Character: Migraine - Allergies/Home Medications Allergies/Adverse Reactions: Allergies Allergy/AdvReac Type Severity Reaction Status Date / Time diphenhydramine AdvReac Intermediate Numbness Verified 08/30/18 04:07 [From Benadryl] And Tingling tramadol AdvReac Intermediate Muscle Ache Verified 08/30/18 04:07 cephalexin [From Keflex] AdvReac GI Upset Verified 08/30/18 04:07 ciprofloxacin [From Cipro] AdvReac Abdominal Verified 08/30/18 04:07 Pain gabapentin [From Neurontin] AdvReac Muscle Ache Verified 08/30/18 04:07 ketorolac [From Toradol] AdvReac Muscle Ache Verified 08/30/18 04:07 morphine AdvReac MAKES Verified 08/30/18 04:07 LIMBS GO NUMB NSAIDS (Non-Steroidal AdvReac GI Upset Verified 08/30/18 04:07 Anti-Inflamma pregabalin [From Lyrica] AdvReac Muscle Ache Verified 08/30/18 04:07 Home Medications: Home Medications Modafinil 50 mg PO DAILY 08/30/18 [History Confirmed 08/30/18] PMH/Surg Hx/FS Hx/Imm Hx Endocrine/Hematology History: Reports: Hx Thyroid Disease Denies: Hx Diabetes Cardiovascular History: Denies: Hx Hypertension, Hx Pacemaker/ICD Respiratory History: Reports: Hx Asthma Denies: Hx Chronic Obstructive Pulmonary Disease (COPD) GI History: Denies: Hx Ulcer History: Reports: Other Problems/Disorders - stress incontinence Denies: Hx Renal Disease Musculoskeletal History: Denies: Hx Rheumatoid Arthritis, Hx Osteoporosis, Hx Scoliosis Sensory History: Reports: Hx Contacts or Glasses Opthamlomology History: Reports: Hx Contacts or Glasses Neurological History: Reports: Hx Headaches - migraines, Hx Migraine - Chronic, Other Neuro Impairments/Disorders - CHRONIC MIGRAINES Psychiatric History: Reports: Hx Anxiety, Hx Depression, Hx Bipolar Disorder Denies: Hx Panic Disorder - Surgical History Surgery Procedure, Year, and Place: bladder surgery, HYSTERECTOMY, LUMP REMOVED RT BREAST ATYPICAL,APPY 2006 - Immunization History Date of Tetanus Vaccine: recent Date of Influenza Vaccine: none Infectious Disease History: No Infectious Disease History: Denies: Hx Clostridium Difficile, Hx Hepatitis, Hx Human Immunodeficiency Virus (HIV), Hx of Known/Suspected MRSA, Hx Shingles, Hx Tuberculosis, Traveled Outside the [place] in Last 30 Days - Family History Known Family History: Negative: Cardiac Disease, Diabetes - Social History Alcohol Use: None Hx Substance Use: No Substance Use Type: Reports: None Hx Tobacco Use: Yes Smoking Status (MU): Former Smoker Review of Systems Negative: Fever Positive: Headache. Negative: Numbness All Other Systems Reviewed And Are Negative: Yes Physical Exam - Summary Physical Exam Summary: VITAL SIGNS: Reviewed. GENERAL: Patient is a well-developed and nourished FEMALE who is lying comfortable in the stretcher. Patient is not in any acute respiratory distress. HEAD AND FACE: No signs of trauma. No ecchymosis, hematomas or skull depressions. No sinus tenderness. EYES: PERRLA, EOMI x 2, No injected conjunctiva, no nystagmus. EARS: Hearing grossly intact. Ear canals and tympanic membranes are within normal limits. MOUTH: Oropharynx within normal limits. NECK: Supple, trachea is midline, no adenopathy, no JVD, no carotid bruit, no c- spine tenderness, neck with full ROM. CHEST: Symmetric, no tenderness at palpation LUNGS: Clear to auscultation bilaterally. No wheezing or crackles. CVS: Regular rate and rhythm, S1 and S2 present, no murmurs or gallops appreciated. ABDOMEN: Soft, non-tender. No signs of distention. No rebound no guarding, and no masses palpated. Bowel sounds are normal. EXTREMITIES: FROM in all major joints, no edema, no cyanosis or clubbing. NEURO: Alert and oriented x 3. No acute neurological deficits. Speech is normal and follows commands. SKIN: Dry and warm Triage Information Reviewed: Yes Vital Signs On Initial Exam: Initial Vitals Temp Pulse Resp BP Pulse Ox 97.8 F 84 18 118/84 99 08/30/18 03:57 08/30/18 03:57 08/30/18 03:57 08/30/18 03:57 08/30/18 03:57 Vital Signs Reviewed: Yes Diagnostics - Vital Signs Vital Signs Temp Pulse Resp BP Pulse Ox 08/30/18 03:57 97.8 F 84 18 118/84 99 - Laboratory Lab Statement: Any lab studies that have been ordered have been reviewed, and results considered in the medical decision making process. Headache Course/Dx - Course Course Of Treatment: This patient is a 47 year old female presenting to [facility] with a chief complaint of migraines since yesterday morning. Physical exam was unremarkable. A plan for discharge was discussed with the patient and she was agreeable with this plan. - Diagnoses Provider Diagnoses: Headache Discharge - Sign-Out/Discharge Documenting (check all that apply): Patient Departure - Discharge Patient Received Moderate/Deep Sedation with Procedure: No - Discharge Plan Condition: Stable Disposition: HOME Patient Education Materials: Migraine Headache (ED) Referrals: Ilana Decker MD [Primary Care Provider] - Additional Instructions: Return to ED with any new or worsening symptoms. - Attestation Statements Document Initiated by Scribe: Yes Documenting Scribe: Gunnar Bettencourt Provider For Whom Scribe is Documenting (Include Credential): Amy Joshua MD Scribe Attestation: Gunnar Curry, scribed for Amy Joshua MD on 08/30/18 at 0637. Status of Scribe Document: Ready
[2018-08-30] MEDS ORDERED: HYDROmorphone INJ1* 1 MG/ML SYRINGE IV SLOW PU ONE ×2 (04:21→05:45)
[2018-08-30] MEDS ORDERED: Magnesium Sulfate 2 GM IV* 2 GM/50 ML BAG IVPB ONE (04:22)
[2018-08-30] MEDS ORDERED: NS 0.9% 1000 ML** 1,000 ML IV ONE ×2 (04:22→05:45)
[2018-08-30] MEDS ORDERED: Metoclopramide IV* 5 MG/ML 2 ML VIAL IV SLOW PU ONE (04:23)
[2018-08-30] MEDS: Dexamethasone IV* 4 MG/ML 1 ML (4 MG) IV SLOW PU ONE ×2 (04:50→05:39)
[2018-08-30 07:28] VITALS: BP 122/77
== END 2018-08-30 07:27 | disposition home or self-care (01) ==
LOC: ED 03:54
DX: R51 Headache (principal); Z88.6 Allergy status to analgesic agent; Z88.1 Allergy status to other antibiotic agents; Z88.5 Allergy status to narcotic agent; Z88.8 Allergy status to other drugs, medicaments and biological substances; Z87.891 Personal history of nicotine dependence
CPT/HCPCS: 96361; 96365; 96366; 96375; 99283; J1100; J1170; J2765; J3475

== ENCOUNTER 2018-12-17 05:38 | Emergency (ER) | payer OTHER ==
--- OUTSIDE RECORDS SUMMARY | 2018-12-17 05:48 | XMS REPORT | Continuity of Care Document ---
:1970 External Reference #:[id number] Author Name Tasia Rodriguez M.D. 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 Onset: 03/29/2014 Major depressive disorder, single Jennifer Lind NP Onset: 2017 episode, unspecified Hypothyroidism Jennifer Lind NP Onset: 09/08/2017 Epilepsy Jennifer Lind NP Onset: 09/08/2017 Visual discomfort Kaiden Mandujano M.D.,FACP Onset: 09/07/2017 Cellulitis of left upper limb Kaiden Mandujano M.D.,FACP Onset: 09/07/2017 Headache Kaiden Mandujano M.D.,FACP Onset: 09/07/2017 Social History Type Date Description Comments Sex Unknown ETOH Use Denies alcohol use Tobacco Use Start: Unknown End: Patient is a former 1 cigarette per day, Unknown smoker quit 2009 Smoking Status Reviewed: 11/12/18 Patient is a former 1 cigarette per day, smoker quit 2009 Allergies, Adverse Reactions, Alerts Active Allergies Reaction Severity Comments Date Tramadol Joint swelling 02/19/2013 Cipro painful abdominal bloating 02/19/2013 Lyrica Nausea and Vomiting 02/19/2013 Gabapentin 02/19/2013 Buprenorphine 02/20/2016 Benadryl issues w/ IV, not PO, myalgias 09/20/2017 and nerve pain Fluoxetine skin symptoms, restless arms 09/20/2017 Hydrocodone headache 09/20/2017 Ketorolac Tromethamine 09/20/2017 NSAIDS gastritis 09/23/2017 Keflex gastritis 09/23/2017 Medications Active Medications SIG Qnty Indications Ordering Provider Date Famciclovir Take 1 tablet by 60tabs B00.1 Jennifer Shayaugustfabiolachris 09/24/2018 250mg mouth twice Lind, SENIOR BENEFITS SPECIALIST Tablets daily Imitrex Statdose inject at the 12units Tasia Rodriguez, 12/14/2015 System onset of M.D. 4mg/0.5ML migraine, may Solution Auto-Inject repeat after 1 hour if needed; max 2/day and max 2days/week Progesterone/Testost qd Sharlene, 10/12/2013 MICKI Porter 15mg/2mg Cream Vivelle-Dot change patch Unknown twice per week 0.075mg/24HR Patches Biweek L-Lysine HCL twice daily Unknown 1000mg Tablets Alprazolam prn Unknown 0.25mg Tablets Lamotrigine 3 tabs once Unknown 25mg daily Tablets Dispers I-Psvzzx-M-Cysteine once a day Unknown 400 MG Mometasone Furoate Ilana Dyson MD 50mcg/Act Suspension Magnesium Oxide -MG 1 by mouth every Unknown Supplement day 400mg Capsules Levothyroxine Sodium 1 by mouth every Unknown day 50mcg Tablets Folate + B12 once weekly Unknown 800-1000mcg Tablets CBD Oil As directed Unknown 25mg Capsules Fioricet/Codeine take one Unknown capsule/tablet [id number] daily by mouth Capsules as needed for headaches Promethazine HCL 1-2 by mouth 60tabs Tasia Rodriguez, 25mg every 8 hours as M.D. Tablets needed Vitamin D-3 1 tab po daily 8tabs Unknown 5000Unit in winter prn Tablets Carney 3 1 po qd. 100caps Unknown 1000mg Capsules Probiotic Daily PO qd Sharlene, MICKI Hernández Capsules Testorone Cream Apply 3mg Sharlene, 2mg topically MICKI Louis History Medications Doxycycline Hyclate 1 capsule by farhad Arshad 09/29/2018 - mouth twice a Lind, HANH 10/28/2018 100mg Capsules day Medications Administered in Office Medication SIG Qnty Indications Ordering Provider Date Injection Onabotulinumtoxin A, 1 Tasai Rodriguez M.D. 10/29/2018 Unit Injection Injection Onabotulinumtoxin A, 1 Tasia Rodriguez M.D. 07/16/2018 Unit Injection Injection Onabotulinumtoxin A, 1 Tasia Rodriguez M.D. 04/09/2018 Unit Injection Injection Onabotulinumtoxin A, 1 Tasia Rodriguez M.D. 01/01/2018 Unit Injection Injection Onabotulinumtoxin A, 1 Tasia Rodriguez M.D. 09/25/2017 Unit Injection Injection Onabotulinumtoxin A, 1 Tasia Rodriguez M.D. 06/19/2017 Unit Injection Injection Onabotulinumtoxin A, 1 Tasia Rodriguez M.D. 03/20/2017 Unit Injection Injection Onabotulinumtoxin A, 1 Tasia Rodriguez M.D. 12/05/2016 Unit Injection Injection Onabotulinumtoxin A, 1 Tasia Rodriguez M.D. 08/29/2016 Unit Injection Injection Onabotulinumtoxin A, 1 Tasia Rivera, HANH 02/17/2016 Unit Injection Injection Onabotulinumtoxin A, 1 Tasia Rodriguez M.D. 10/19/2015 Unit Injection Injection Onabotulinumtoxin A, 1 Tasia Rodriguez M.D. 07/18/2015 Unit Injection Injection Onabotulinumtoxin A, 1 Tasia Rodriguez M.D. 04/18/2015 Unit Injection Injection Onabotulinumtoxin A, 1 Yoli Lama, HANH 01/10/2015 Unit Injection Injection Onabotulinumtoxin A, 1 Yoli Lama NP 10/06/2014 Unit Injection Injection Onabotulinumtoxin A, 1 Yoli Lama NP 07/14/2014 Unit Injection Injection Onabotulinumtoxin A, 1 Tasia Rodriguez M.D. 03/29/2014 Unit Injection Injection Onabotulinumtoxin A, 1 Tasia Rodriguez M.D. 12/14/2013 Unit Injection Injection Onabotulinumtoxin A, 1 Tasia Rodriguez M.D. 09/03/2013 Unit Injection Injection Onabotulinumtoxin A, 1 Tasia Rodriguez M.D. 09/03/2013 Unit Injection Injection Onabotulinumtoxin A, 1 Tasia Rodriguez M.D. 05/18/2013 Unit Injection Injection Onabotulinumtoxin A, 1 Tasia Rodriguez M.D. 05/18/2013 Unit Injection Injection Onabotulinumtoxin A, 1 Tasia Rodriguez M.D. 02/19/2013 Unit Injection Injection Onabotulinumtoxin A, 1 Tasia Rodriguez M.D. 02/19/2013 Unit Injection Injection Onabotulinumtoxin A, 1 Tasia Rodriguez M.D. 11/19/2012 Unit Injection Injection Onabotulinumtoxin A, 1 Tasia oRdriguez M.D. 11/19/2012 Unit Injection Injection Onabotulinumtoxin A, 1 Tasia Rodriguez M.D. 08/18/2012 Unit Injection Injection Onabotulinumtoxin A, 1 Tasia Rodriguez M.D. 08/18/2012 Unit Injection Injection Onabotulinumtoxin A, 1 Tasia Rodriguez M.D. 05/19/2012 Unit Injection Injection Onabotulinumtoxin A, 1 Tasia Rodriguez M.D. 05/19/2012 Unit Injection Injection Onabotulinumtoxin A, 1 Tasia Rodriguez M.D. 02/13/2012 Unit Injection Injection Onabotulinumtoxin A, 1 Tasia Rodriguez M.D. 02/13/2012 Unit Injection Injection Onabotulinumtoxin A, 1 Tasia Rodriguez M.D. 11/07/2011 Unit Injection Injection Onabotulinumtoxin A, 1 Tasia Rodriguez M.D. 11/07/2011 Unit Injection Immunizations Description No Information Available Vital Signs Date Vital Result Comment 11/12/2018 11:00am Height 66 inches 5'6" Weight 130.00 lb Heart Rate 80 /min BP Systolic Sitting 98 mmHg BP Diastolic Sitting 72 mmHg BMI (Body Mass Index) 21.0 kg/m2 10/29/2018 10:47am Height 66 inches 5'6" Weight 129.00 lb Heart Rate 100 /min BP Systolic Sitting 102 mmHg BP Diastolic Sitting 76 mmHg Respiratory Rate 16 /min BMI (Body Mass Index) 20.8 kg/m2 Results Test Date Facility Test Result H/L Range Note CBC Auto 09/24/2018 [facility] White Blood 7.0 10^3/uL Normal 3.5-10.[address] [place] [address] [phone] Red Blood Count 4.46 10^6/uL Normal 3.70-4.87 Hemoglobin 14.9 g/dL Normal 12.0-16.0 Hematocrit 44 % Normal 35-47 Mean Corpuscular Volume 98 fL High 80-97 Mean Corpuscular Hemoglobin 33 pg High 27-31 Mean Corpuscular HGB Conc 34 g/dL Normal 31-36 Red Cell Distribution Width 13 % Normal 10-15 Platelet Count 251 10^3/uL Normal 150-450 Mean Platelet Volume 8.2 fL Normal 7.4-10.4 Abs Neutrophils 4.8 10^3/uL Normal 1.5-7.7 Abs Lymphocytes 1.5 10^3/uL Normal 1.0-4.8 Abs Monocytes 0.5 10^3/uL Normal 0-0.8 Abs Eosinophils 0.2 10^3/uL Normal 0-0.6 Abs Basophils 0.0 10^3/uL Normal 0-0.2 Abs Nucleated RBC 0.0 10^3/uL Granulocyte % 68.7 % Lymphocyte % 20.8 % Monocyte % 7.5 % Eosinophil % 2.3 % Basophil % 0.7 % Nucleated Red Blood Cells % 0.0 Comp Metabolic 09/24/2018 [facility] Sodium 139 mmol/L Normal 135-[address] [place] [address] [phone] Potassium 4.2 mmol/L Normal 3.5-5.0 Chloride 102 mmol/L Normal 101-111 Co2 Carbon Dioxide 31 mmol/L Normal 22-32 Anion Gap 6 mmol/L Normal 2-11 Glucose 91 mg/dL Normal 70-100 Blood Urea Nitrogen 13 mg/dL Normal 6-24 Creatinine 0.76 mg/dL Normal 0.51-0.95 BUN/Creatinine Ratio 17.1 Normal 8-20 Calcium 10.0 mg/dL Normal 8.6-10.3 Total Protein 7.3 g/dL Normal 6.4-8.9 Albumin 4.6 g/dL Normal 3.2-5.2 Globulin 2.7 g/dL Normal 2-4 Albumin/Globulin Ratio 1.7 Normal 1-3 Total Bilirubin 0.40 mg/dL Normal 0.2-1.0 Alkaline Phosphatase 78 U/L Normal 34-104 Alt 21 U/L Normal 7-52 Ast 22 U/L Normal 13-39 Egfr Non- 81.6 >60 Egfr 98.7 >60 1 Laboratory test 09/24/2018 [facility] C Reactive 10.05 mg/L High <8.01 finding [address] [place] [address] [phone] Lyme Screen W/ Reflex To WB Positive Abnormal Negative 2 Connective Tissue 09/24/2018 [facility] Anti-Nuclear Antibody 0.7 U [address] [place] [address] [phone] Cyclic Citrullinated Peptide <15.6 U 4 Interpretation See Comment 5 Lyme Disease 09/24/2018 [facility] IgG Positive Abnormal Negative AB Immunoblot [address] [place] [address] [phone] IgG detected against See Comment kDa 6 IgM Immunoblot Positive Abnormal Negative IgM detected against p41,p39,p23 kDa Lyme Disease Interpretation See Comment 7 1 Because ethnic data is not always [...] 5 Kidney failure <15 (or dialysis) 2 Sent to reference laboratory for confirmatory testing. 3 REFERENCE VALUE <=1.0 (Negative) 4 REFERENCE VALUE <20.0 (Negative) 5 Tests for antibodies to dsDNA and LOUANN antigens are not performed automatically unless the ABNER result is > or = 3.0 U. Studies performed at [facility] indicate that positive ABNER results <3.0 U are rarely accompanied by positive second order tests. Test Performed by: [facility] [place] [employer] [facility] [place] [address] 6 RESULT: p66,p45,p41,p39,p23,p18 7 Consistent with active or previous infection for B. burgdorferi. IgM blot criteria is of diagnostic utility only during the first 4 weeks of early Lyme disease. ADDITIONAL INFORMATION Per CDC criteria, the Lyme IgG Immunoblot is interpreted as positive if IgG-class antibodies are detected to >=5 B. burgdorferi proteins, and the Lyme IgM Immunoblot is interpreted as positive if IgM-class antibodies are detected to >=2 B. burgdorferi proteins. Immunoblot patterns not meeting these criteria should not be interpreted as positive. Epitopes from certain B. burgdorferi proteins (e.g., p41) are conserved across other bacteria, which may lead to the detection of IgM- and/or IgG-class antibodies on the Lyme disease immunoblots in patients without Lyme disease. Immunoblot should only be ordered on specimens that are positive or equivocal by a FDA-licensed Lyme disease antibody screening test (e.g., EIA). Results of the Lyme IgM immunoblot should not be considered in patients with >= 30 days of symptoms. Test Performed by: [facility] [place] [employer] [facility] [facility] [place] [address] Procedures Date Code Description Status 10/29/2018 62407 Chemodenervation Of Muscles Innervated By Facial Completed Nerves, Bilat 07/16/2018 34786 Chemodenervation Of Muscles Innervated By Facial Completed Nerves, Bilat 11/03/2012 [id number] Mammogram Completed Medical Devices Description No Information Available Encounters Type Date Location Provider Dx Diagnosis Office Visit 10/29/2018 [facility] Tasia Rodriguez, G43.119 Migraine with 10:30a [facility] M.D. aura, intractable, without status migrainosus Office Visit 10/06/2018 [facility] Jennifer Arshad A69.20 Lyme disease, 2:30p Infectious Diseases Diogo, HANH unspecified B00.1 Herpesviral vesicular dermatitis Office Visit 09/24/2018 2:00p [facility] Jennifer Arshad R51 Headache Infectious Diseases Diogo, HANH M25.50 Pain in unspecified joint B00.1 Herpesviral vesicular dermatitis A69.20 Lyme disease, unspecified Office Visit 09/16/2018 9:30a [facility] Avinash Osorio Headache Infectious Amish Katz B00.1 Herpesviral vesicular dermatitis Assessments Date Code Description Provider 11/12/2018 M54.81 Occipital neuralgia Tasia Rodriguez M.D. 10/29/2018 G43.119 Migraine with aura, intractable, Tasia Rodriguez M.D. without status migrainosus 10/06/2018 A69.20 Lyme disease, unspecified Jennifer Lind, SENIOR BENEFITS SPECIALIST 10/06/2018 B00.1 Herpesviral vesicular dermatitis Jennifer Lind, SENIOR BENEFITS SPECIALIST 09/24/2018 R51 Headache Jennifer Lind, SENIOR BENEFITS SPECIALIST 09/24/2018 M25.50 Pain in unspecified joint Jennifer Lind, SENIOR BENEFITS SPECIALIST 09/24/2018 B00.1 Herpesviral vesicular dermatitis Jennifer Lind, SENIOR BENEFITS SPECIALIST 09/24/2018 A69.20 Lyme disease, unspecified Jennifer Lind, SENIOR BENEFITS SPECIALIST 09/16/2018 R51 Headache Ramon Colunga M.D. 09/16/2018 B00.1 Herpesviral vesicular dermatitis Ramon Colunga M.D. 07/16/2018 G43.119 Migraine with aura, intractable, Tasia Rodriguez M.D. without status migrainosus Plan of Treatment Future Appointment(s):05/13/2019 10:30 am - Tasia Rodriguez M.D. at [facility] [id number]/01/2019 9:30 am - Tasia Rodriguez M.D. at [facility] [id number]/04/2019 10:00 am - Tasia Rodriguez M.D. at [facility] [id number]/12/2018 - Tasia Rodriguez M.D.M54.81 Occipital neuralgiaFollow up:as scheduled Functional Status Description No Information Available Mental Status Description No Information Available Referrals Description No Information Available
--- NOTE | 2018-12-17 06:22 | ED ---
Headache - HPI Summary HPI Summary: Pt. is a 48 y.o female who presents to the ER for a headache since yesterday. Pt. states she has a hx of migraines and follows with Dr. Rodriguez and takes Imitrex and fioricet. Pt. states h/a today is unchanged from her prior headaches. She denies recent injury, illness, fever, numbness, tingling or weakness. Notes chronic neck pain without change. Pt. states she typically receives a cocktail of 2mg Dilaudid, mag, and decadron recommended by her neurologist. Sxs are moderate in severity. pain is exacerbated by lights and noise. - History Of Current Complaint Chief Complaint: EDHeadache Stated Complaint: HEADACHE PER PT Time Seen by Provider: 12/17/18 06:19 Hx Obtained From: Patient - Allergies/Home Medications Allergies/Adverse Reactions: Allergies Allergy/AdvReac Type Severity Reaction Status Date / Time diphenhydramine AdvReac Intermediate Numbness Verified 12/17/18 05:43 [From Benadryl] And Tingling tramadol AdvReac Intermediate Muscle Ache Verified 12/17/18 05:43 cephalexin [From Keflex] AdvReac GI Upset Verified 12/17/18 05:43 ciprofloxacin [From Cipro] AdvReac Abdominal Verified 12/17/18 05:43 Pain gabapentin [From Neurontin] AdvReac Muscle Ache Verified 12/17/18 05:43 ketorolac [From Toradol] AdvReac Muscle Ache Verified 12/17/18 05:43 morphine AdvReac MAKES Verified 12/17/18 05:43 LIMBS GO NUMB NSAIDS (Non-Steroidal AdvReac GI Upset Verified 12/17/18 05:43 Anti-Inflamma pregabalin [From Lyrica] AdvReac Muscle Ache Verified 12/17/18 05:43 PMH/Surg Hx/FS Hx/Imm Hx Previously Healthy: Yes Endocrine/Hematology History: Reports: Hx Thyroid Disease Denies: Hx Diabetes Cardiovascular History: Denies: Hx Hypertension, Hx Pacemaker/ICD Respiratory History: Reports: Hx Asthma Denies: Hx Chronic Obstructive Pulmonary Disease (COPD) GI History: Denies: Hx Ulcer History: Reports: Other Problems/Disorders - stress incontinence Denies: Hx Renal Disease Musculoskeletal History: Denies: Hx Rheumatoid Arthritis, Hx Osteoporosis, Hx Scoliosis Sensory History: Reports: Hx Contacts or Glasses Opthamlomology History: Reports: Hx Contacts or Glasses Neurological History: Reports: Hx Headaches - migraines, Hx Migraine - Chronic, Other Neuro Impairments/Disorders - CHRONIC MIGRAINES Psychiatric History: Reports: Hx Anxiety, Hx Depression, Hx Bipolar Disorder Denies: Hx Panic Disorder - Surgical History Surgery Procedure, Year, and Place: bladder surgery, HYSTERECTOMY, LUMP REMOVED RT BREAST ATYPICAL,APPY 2006 - Immunization History Date of Tetanus Vaccine: recent Date of Influenza Vaccine: none Infectious Disease History: No Infectious Disease History: Denies: Hx Clostridium Difficile, Hx Hepatitis, Hx Human Immunodeficiency Virus (HIV), Hx of Known/Suspected MRSA, Hx Shingles, Hx Tuberculosis, Traveled Outside the [place] in Last 30 Days - Family History Known Family History: Positive: Non-Contributory Negative: Cardiac Disease, Diabetes - Social History Occupation: Disabled Lives: Alone Alcohol Use: None Hx Substance Use: No Substance Use Type: Reports: None Hx Tobacco Use: Yes Smoking Status (MU): Former Smoker Review of Systems Constitutional: Negative Positive: Photophobia Cardiovascular: Negative Respiratory: Negative Gastrointestinal: Negative Skin: Negative Positive: Headache. Negative: Weakness, Paresthesia, Numbness All Other Systems Reviewed And Are Negative: Yes Physical Exam Triage Information Reviewed: Yes Vital Signs On Initial Exam: Initial Vitals Temp Pulse Resp BP Pulse Ox 96.2 F 93 16 128/95 100 12/17/18 05:40 12/17/18 05:40 12/17/18 05:40 12/17/18 05:40 12/17/18 05:40 Vital Signs Reviewed: Yes Appearance: Positive: Well-Appearing - Pt. lying on bed with pillow over eyes. Skin: Positive: Warm, Dry Head/Face: Positive: Normal Head/Face Inspection Eyes: Positive: Normal, EOMI, KEKE Neck: Positive: Supple. Negative: Nuchal Rigidity Respiratory/Lung Sounds: Positive: Clear to Auscultation, Breath Sounds Present Cardiovascular: Positive: Normal, RRR Musculoskeletal: Positive: Normal, Strength/ROM Intact Neurological: Positive: Normal, Alert, Oriented to Person Place, Time, CN Intact II-III Psychiatric: Positive: Affect/Mood Appropriate Procedures - Sedation Patient Received Moderate/Deep Sedation with Procedure: No Diagnostics - Vital Signs Vital Signs Temp Pulse Resp BP Pulse Ox 12/17/18 05:40 96.2 F 93 16 128/95 100 - Laboratory Lab Statement: Any lab studies that have been ordered have been reviewed, and results considered in the medical decision making process. Headache Course/Dx - Course Course Of Treatment: Patient presenting with her typical headache without change. No neurological deficits. Vital signs normal. Patient was given migraine cocktail consisting of IV fluids, Decadron and magnesium and 1 mg of Dilaudid. On reexamination patient notes mild improvement of pain and is requesting another dose of dilaudid. Headache improved. Patient discharged home stable with family. Advised to call her neurologist today for close follow -up appointment. To continue home medications as directed. To return to the ER symptoms change or worsen. - Diagnoses Differential Diagnosis/HQI/PQRI: Migraine, Sinus Headache, Subarachnoid Hemorrhage Provider Diagnoses: Cephalgia Discharge ED - Sign-Out/Discharge Documenting (check all that apply): Patient Departure - Discharge Plan Condition: Improved Disposition: HOME Patient Education Materials: Migraine Headache (ED) Referrals: Ilana Decker MD [Primary Care Provider] - Tasia Rodirguez MD [Medical Doctor] - Additional Instructions: Schedule a follow up appointment with your neurologist within 1 week Continue home medications as directed Increase fluids and rest Return to ER if symptoms change or worsen - Billing Disposition and Condition Condition: IMPROVED Disposition: Home - Attestation Statements Provider Attestation: I was available for consultation for this patient. I did not evaluate the patient or participate in any medical decision making or disposition decisions unless I am specifically named in the chart as having consulted on the patient. If I have consulted on the patient, please see my own ED note on the patient encounter. Nikita Daniels MD
[2018-12-17] MEDS: NS 0.9% 1000 ML** 1,000 ML IV ONE (07:13)
[2018-12-17] MEDS: HYDROmorphone INJ1* 1 MG/ML SYRINGE IV ONE ×2 (07:14→08:40)
[2018-12-17] MEDS: Dexamethasone IV* 4 MG/ML 1 ML (4 MG) IV SLOW PU ONE (07:20)
[2018-12-17] MEDS: Magnesium Sulfate 2 GM IV* 2 GM/50 ML BAG IVPB ONE (07:25)
[2018-12-17 09:31] VITALS: BP 137/92
== END 2018-12-17 09:20 | disposition home or self-care (01) ==
LOC: ED 05:38
DX: R51 Headache (principal); E07.9 Disorder of thyroid, unspecified; J45.909 Unspecified asthma, uncomplicated; F41.9 Anxiety disorder, unspecified; F31.9 Bipolar disorder, unspecified; Z90.710 Acquired absence of both cervix and uterus; Z88.6 Allergy status to analgesic agent; Z88.1 Allergy status to other antibiotic agents; Z88.5 Allergy status to narcotic agent; Z88.8 Allergy status to other drugs, medicaments and biological substances; Z79.899 Other long term (current) drug therapy
CPT/HCPCS: 96374; 96375; 96376; 99284; J1100; J1170

== ENCOUNTER 2019-04-20 20:04 | Emergency (ER) | payer OTHER ==
--- OUTSIDE RECORDS SUMMARY | 2019-04-20 20:18 | XMS REPORT | Continuity of Care Document ---
:1970 External Reference #:[id number] Author Name Ilana Dyson MD (transmitted by agent of provider Milly Beltrán) Address [address], [place] [address] Care Team Providers Name Role Phone Ilana Dyson MD - Family Medicine Care Team Information Sorter Packer [phone] Problems Active Problems Provider Date Refractory migraine Tasia Rodriguez M.D. 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 Atrophic vaginitis Onset: 08/08/2016 Disability Onset: 01/05/2016 Hormone replacement therapy Onset: 08/25/2015 Bipolar II disorder Onset: 03/28/2015 Recurrent genital Herpes simplex type Onset: 03/02/2015 2 infection Adverse reaction to drug Onset: 03/02/2015 Chronic headache disorder Onset: 03/02/2015 Fatigue Onset: 03/02/2015 Cobalamin deficiency Onset: 03/02/2015 Neck pain Onset: 03/02/2015 Shoulder pain Onset: 03/02/2015 Chronic recurrent major depressive Onset: 03/02/2015 disorder Fibrocystic disease of breast Onset: 03/02/2015 Seasonal allergic rhinitis Onset: 03/02/2015 Adhesive capsulitis of shoulder Onset: 10/23/2014 Neuralgia Onset: 08/24/2009 Postsurgical menopause Onset: 03/18/2009 Disorders of urogenital prostheses or Onset: 03/18/2009 implants History of total hysterectomy Onset: 12/16/2008 Endometriosis of uterus Onset: 03/18/2004 Pneumonia Onset: 03/18/2002 Family history of cancer of colon Ilana Dyson MD Onset: 04/10/2019 Degeneration of cervical Ilana Dyson MD Onset: 04/10/2019 intervertebral disc Anti-nuclear factor positive Ilana Dyson MD Onset: 04/10/2019 Social History Type Date Description Comments Sex Unknown Tobacco Use Start: Unknown End: Former Cigarette Unknown Smoker 1-5 Cigarettes Daily Smoking Status Reviewed: 03/25/19 Former Cigarette Smoker 1-5 Cigarettes Daily ETOH Use Denies alcohol use Tobacco Use Start: Unknown End: Patient is a former 1 cigarette per day, Unknown smoker quit 2009 Recreational Drug Use Denies Drug Use Exercise Type/Frequency Exercises regularly Exercise Type/Frequency rides horses Allergies, Adverse Reactions, Alerts Active Allergies Reaction Severity Comments Date Tramadol Joint swelling 02/19/2013 Cipro painful abdominal 02/19/2013 bloating Lyrica Nausea and Vomiting 02/19/2013 Gabapentin 02/19/2013 Buprenorphine 02/20/2016 Benadryl issues w/ IV, not PO, 09/20/2017 myalgias and nerve pain Fluoxetine skin symptoms, 09/20/2017 restless arms Hydrocodone headache 09/20/2017 Ketorolac Tromethamine 09/20/2017 NSAIDS gastritis 09/23/2017 Keflex gastritis 09/23/2017 Corticosteroids agitation, 02/04/2019 anxiety,sleeplessnes s Cyclobenzaprine Headache Moderate 03/18/2019 Mobic Abdominal pain Severe 04/10/2019 Medications Active Medications SIG Qnty Indications Ordering Provider Date Estradiol apply twice 8units E89.41 Ilana Dyson MD 04/10/2019 0.05mg/24HR weekly to lower Patches Biweek thorax Famciclovir Take 1 tablet by 60tabs B00.1 Jennifer Jeancarlos 09/24/2018 250mg mouth twice Lind, SALES MERCHANDISING SPECIALIST Tablets daily Imitrex Statdose inject at the 12units Tasia Rodriguez, 12/14/2015 System onset of M.D. 4mg/0.5ML migraine, may Solution Auto-Inject repeat after 1 hour if needed; max 2/day and max 2days/week Progesterone/Testost qd Sharlene, 10/12/2013 MICKI Porter 15mg/2mg Cream Oxycodone-Acetaminop Take One Tablet Unknown hen By Mouth Every 6 10-325mg Tablets Hours as Needed Folate And Vitamin once weekly Unknown B12 400-1000 Lamotrigine 1 tablet once a Unknown 100mg day Tablets L-Lysine HCL twice daily Unknown 1000mg Tablets Alprazolam prn Unknown 0.25mg Tablets M-Pdkgdb-G-Cysteine once a day Unknown 400 MG Magnesium Oxide -MG 1 by mouth every Unknown Supplement day 400mg Capsules Levothyroxine Sodium 1 by mouth every Unknown day 50mcg Tablets Fioricet/Codeine take one Unknown capsule/tablet [id number] daily by mouth Capsules as needed for headaches Promethazine HCL 1-2 by mouth 60tabs Tasia Rodriguez, 25mg every 8 hours as M.D. Tablets needed Vitamin D-3 1 tab po daily 8tabs Unknown 5000Unit in winter prn Tablets [place] 3 1 po qd. 100caps Unknown 1000mg Capsules Probiotic Daily PO qd Sharlene, MICKI Hernández Capsules Testorone Cream Apply 3mg Sharlene, 2mg topically MICKI Louis Medications Administered in Office Medication SIG Qnty Indications Ordering Provider Date Injection Onabotulinumtoxin A, 1 Tasia Rodriguez M.D. 02/04/2019 Unit Injection Injection Onabotulinumtoxin A, 1 Tasia Rodriguez M.D. 10/29/2018 Unit Injection Injection Onabotulinumtoxin [...] Injection Injection Onabotulinumtoxin A, 1 Tasia Rivera, SALES MERCHANDISING SPECIALIST 02/17/2016 Unit Injection Injection Onabotulinumtoxin A, 1 Tasia Rodriguez M.D. 10/19/2015 Unit Injection Injection Onabotulinumtoxin A, 1 Tasia Rodriguez M.D. 07/18/2015 Unit Injection Injection Onabotulinumtoxin A, 1 Tasia Rodriguez M.D. 04/18/2015 Unit Injection Injection Onabotulinumtoxin A, 1 Yoli Lama, SALES MERCHANDISING SPECIALIST 01/10/2015 Unit Injection Injection Onabotulinumtoxin A, 1 Yoli Lama, SALES MERCHANDISING SPECIALIST 10/06/2014 Unit Injection Injection Onabotulinumtoxin A, 1 Yoli Lama, SALES MERCHANDISING SPECIALIST 07/14/2014 Unit Injection Injection Onabotulinumtoxin A, 1 [...] Tasia Rodriguez M.D. 11/07/2011 Unit Injection Immunizations CPT Code Status Date Vaccine Lot # [id number] Given 07/25/2017 Tdap - Tetanus/Diptheria/Acellular Pertussis [id number] Given 07/16/1997 Hepatitis B Herrera Adoles For Intramuscular Use Vital Signs Date Vital Result Comment 04/10/2019 10:16am Height 66 inches 5'6" Weight 130.00 lb Heart Rate 74 /min BP Systolic 114 mmHg BP Diastolic 81 mmHg Body Temperature 96.9 F O2 % BldC Oximetry 100 % BMI (Body Mass Index) 21.0 kg/m2 04/01/2019 11:09am Height 66 inches 5'6" Weight 130.00 lb Heart Rate 80 /min BP Systolic 104 mmHg BP Diastolic 70 mmHg Body Temperature 97.0 F O2 % BldC Oximetry 97 % BMI (Body Mass Index) 21.0 kg/m2 Results Test Acquired Date Facility Test Result H/L Range Note Laboratory test 03/30/[address] [facility] SM(Liang) Igg <0.2 U 1 [place] [address] [phone] U1 S[employer]IOR [employer] APPLICATIONS DEVELOPER/SNRNP Igg 03/30/[address] [facility] U1 SENIOR [employer]ACLE APPLICATIONS DEVELOPER IgG Autoabs <0.[address] [place] [address] [phone] Cardiolipin 03/30/[address] [facility] Phospholipid Ab < 9.4 MPL 3 Igg/Igm IgM, [place] [address] [phone] Phospholipid Ab IgG < 9.4 GPL 4 Laboratory test 03/30/[address] [facility] Anti Double <12.3 IU/mL 5 finding [facility] [place] [address] [phone] Complement C3 90 mg/dL 75 - 175 6 Complement C4 21 mg/dL 14 - 40 7 Cyclic Citrullinated Pep Igg <15.6 U 8 Immunoglobulins 03/04/[address] [facility] Immunoglobulin G 1090 767 - 9 Serum Quant [facility] mg/dL [address] [place] [address] [phone] Immunoglobulin M 135 mg/dL 37 - 286 Immunoglobulin A 95 mg/dL 61 - 356 Ssa/SSB Abs Igg 03/04/[address] [facility] SS-A/Ro Antibody <0.2 U 10 [place] [address] [phone] SS-B/La Antibody <0.2 U 11 Laboratory test 03/04/[address] [facility] T3 Free 4.20 pg/mL High 2.5-3.9 [place] [address] [phone] Anca AB Ser If 03/04/[address] [facility] C-[place] [address] [phone] P-Anca Negative Negative 12 Laboratory test 03/04/[address] [facility] Rheumatoid < 10 IU/mL Normal <[address] [place] [address] [phone] Cyclic Citrullinated Pep Igg <15.6 U 13 Nuclear AB 03/04/[address] [facility] Nuclear Ab Positive 1:160 Abnormal 14 (Zee) By Ifa [address] (Zee) by Ifa, Igg [place] [address] IgG [phone] Zee Titer: 1:160 Zee Pattern: Homogeneous 15 Laboratory 03/04/[address] [facility] Thyroperoxidase AB 4.59 Normal <9 test finding [address] IU/mL [place] [address] [phone] Vitamin B12 03/04/[address] [facility] Vitamin B12 549 Normal 180- 9 [address] pg/mL 14 Serum [place] [address] [phone] Folic Acid (Folate) 18.32 ng/mL >3.99 CBC Auto 03/04/[address] [facility] White Blood 4.8 10^3/uL Normal 3.5-10.[address] [place] [address] [phone] Red Blood Count 4.24 10^6/uL Normal 3.70-4.87 Hemoglobin 14.5 g/dL Normal 12.0-16.0 Hematocrit 41 % Normal 35-47 Mean Corpuscular Volume 98 fL High 80-97 Mean Corpuscular Hemoglobin 34 pg High 27-31 Mean Corpuscular HGB Conc 35 g/dL Normal 31-36 Red Cell Distribution Width 13 % Normal 10-15 Platelet Count 189 10^3/uL Normal 150-450 Mean Platelet Volume 8.0 fL Normal 7.4-10.4 Abs Neutrophils 1.8 10^3/uL Normal 1.5-7.7 Abs Lymphocytes 2.4 10^3/uL Normal 1.0-4.8 Abs Monocytes 0.4 10^3/uL Normal 0-0.8 Abs Eosinophils 0.1 10^3/uL Normal 0-0.6 Abs Basophils 0.1 10^3/uL Normal 0-0.2 Abs Nucleated RBC 0.0 10^3/uL Granulocyte % 38.0 % Lymphocyte % 49.3 % Monocyte % 8.8 % Eosinophil % 2.5 % Basophil % 1.4 % Nucleated Red Blood Cells % 0.1 Tick-Borne Panel 03/04/[address] [facility] Babesia Negative Negative PCR Blood [address] [place] [address] [phone] Babesia ducani Negative Negative Babesia divergens/Mo-1 Negative Negative 17 Anaplasma phagocytophilum Negative Negative Ehrlichia chaffeensis Negative Negative Ehrlichia ewingii/canis Negative Negative Ehrlichia muris eauclairensis Negative Negative 18 B. miyamotoi PCR, B Negative Negative 19 Laboratory test 03/04/[address] [facility] C Reactive < 1.00 Normal <8.[address] Protein mg/[place] [address] [phone] Creatine Kinase(CK) 99 U/L Normal 10-223 Celiac Hla 03/04/[address] [facility] Hla-Dqa1 SEE BELOW [address] [place] [address] [phone] Hla-DQB1 SEE BELOW 21 Celiac Gene Pairs Present? Yes Celiac Gene Interpretation See Comment 22 Celiac Panel 03/04/[address] [facility] Tissue Transglutaminase <1.2 U/mL [address] [place] [address] [phone] Immunoglobulin A 101 mg/dL 61 - 356 Celiac Interpretation See Comment 24 Laboratory test 03/04/[address] [facility] Vitamin D 48.6 ng/mL Normal 20-50 [address] Total 25(Oh) [place] [address] [phone] Magnesium 2.5 mg/dL Normal 1.9-2.7 Erythrocyte Sed Rate 1 mm/Hr Normal 0-19 Hla B27 03/04/[address] [facility] Hla B27 Negative [address] [place] [address] [phone] Hla B27 Interp See Comment 27 Laboratory 03/04/[address] [facility] Aldolase 3.7 U/L <7.7 28 test finding [address] [place] [address] [phone] Laboratory 12/24/[address] [facility] C Reactive < 1.00 Normal < 8.01 test finding [address] Protein mg/[place] [address] [phone] lyme disease 12/18/2018 N2N/CCD Import IgG positive Abnormal negative Ab conf west immunoblot blot IgG detected against see comment IgM immunoblot positive Abnormal negative IgM detected against p41,p39,p23 lyme disease interpretation see comment lyme screen w/ 12/16/2018 N2N/CCD Import lyme IgG, IgM positive Abnormal negative reflex to WB Erythrocyte 11/13/2018 N2N/CCD Import erythrocyte sed 1 mm/HR 0-19 sedimentation rate rate Basic metabolic 11/13/2018 N2N/CCD Import sodium 137 mmol/L 135-145 panel - Blood potassium 4.2 mmol/L 3.5-5.0 chloride 102 mmol/L 101-111 Co2 carbon dioxide 33 mmol/L High 22-32 anion gap 2 mmol/L 2-11 glucose 114 mg/dL High 70-100 blood urea nitrogen 17 mg/dL 6-24 creatinine 0.79 mg/dL 0.51-0.95 BUN/creatinine ratio 21.5 High 8-20 calcium 9.9 mg/dL 8.6-10.3 eGFR non- 78.0 >60 eGFR 94.4 >60 Magnesium 11/13/2018 N2N/CCD Import magnesium 2.3 mg/dL 1.9-2.7 [Mass/volume] in Blood Creatine kinase 11/13/2018 N2N/CCD Import creatine kinase 89 U/L 10-223 [Enzymatic activity/volume] in Ser C reactive protein 11/13/2018 N2N/CCD Import CRP high 0.31 mg/L <2.00 [Mass/volume] in sensitivity Serum or Plasm CBC W Auto 11/13/2018 N2N/CCD Import white blood count 4.4 10_3/uL 3.5- 10.8 Differential panel - Blood red blood count 4.36 10_6_/uL 3.70-4.87 hemoglobin 14.7 g/dL 12.0-16.0 hematocrit 43 % 35-47 mean corpuscular volume 98 fL High 80-97 mean corpuscular hemoglobin 34 pg High 27-31 mean corpuscular HGB conc 34 g/dL 31-36 red cell distribution width 13 % 10-15 platelet count 208 10_3/uL 150-450 mean platelet volume 8.3 fL 7.4-10.4 abs neutrophils 1.9 10_3/uL 1.5-7.7 abs lymphocytes 2.1 10_3/uL 1.0-4.8 abs monocytes 0.3 10_3/uL 0-0.8 abs eosinophils 0.1 10_3/uL 0-0.6 abs basophils 0.0 10_3/uL 0-0.2 abs nucleated RBC 0.0 10_3/uL granulocyte % 42.7 % lymphocyte % 47.8 % monocyte % 6.4 % eosinophil % 2.3 % basophil % 0.8 % nucleated red blood cells % 0.1 1 REFERENCE VALUE <1.0 (Negative) Test Performed by: [place] [address] Home Energy Inspector: Glen Bsoe M.D. Ph.D.; CLIA# [id number] 2 REFERENCE VALUE <1.0 (Negative) Test Performed by: [place] [address] Home Energy Inspector: Glen Bose M.D. Ph.D.; CLIA# [id number] 3 REFERENCE VALUE <15.0 (Negative) 4 REFERENCE VALUE <15.0 (Negative) Test Performed by: [place] [address] Home Energy Inspector: Glen Bose M.D. Ph.D.; CLIA# [id number] 5 REFERENCE VALUE <30.0 (Negative) Test Performed by: [place] [address] Home Energy Inspector: Glen Bose M.D. Ph.D.; CLIA# [id number] 6 Test Performed by: [place] [address] Home Energy Inspector: Glen Bose M.D. Ph.D.; CLIA# [id number] 7 Test Performed by: [place] [address] Home Energy Inspector: Glen Bose M.D. Ph.D.; CLIA# [id number] 8 REFERENCE VALUE <20.0 (Negative) Test Performed by: [place] [address] Home Energy Inspector: Glen Bose M.D. Ph.D.; CLIA# [id number] 9 Test Performed by: [place] [address] Home Energy Inspector: Glen Bose M.D. Ph.D.; CLIA# [id number] 10 REFERENCE VALUE <1.0 (Negative) 11 REFERENCE VALUE <1.0 (Negative) Test Performed by: [place] [address] Home Energy Inspector: Glen Bose M.D. Ph.D.; CLIA# [id number] 12 Negative for cANCA and pANCA patterns by immunofluorescence. ADDITIONAL INFORMATION This test was developed and its performance characteristics determined by [facility] in a manner consistent with CLIA requirements. This test has not been cleared or approved by the U.S. Food and Drug Administration. Test Performed by: [place] [address] Home Energy Inspector: Glen Bose M.D. Ph.D.; CLIA# [id number] 13 REFERENCE VALUE <20.0 (Negative) Test Performed by: [place] [address] Home Energy Inspector: Glen Bose M.D. Ph.D.; CLIA# [id number] 14 REFERENCE VALUE <1:80 (Negative) 15 Test Performed by: [place] [address] Home Energy Inspector: Glen Bose M.D. Ph.D.; CLIA# [id number] 16 Normal Range 180 to 914 Indeterminate Range 145 to 180 Deficient Range <145 17 ADDITIONAL INFORMATION This test was developed and its performance characteristics determined by [facility] in a manner consistent with CLIA requirements. This test has not been cleared or approved by the U.S. Food and Drug Administration. 18 ADDITIONAL INFORMATION This test was developed and its performance characteristics determined by [facility] in a manner consistent with CLIA requirements. This test has not been cleared or approved by the U.S. Food and Drug Administration. 19 ADDITIONAL INFORMATION This test was developed and its performance characteristics determined by [facility] in a manner consistent with CLIA requirements. This test has not been cleared or approved by the U.S. Food and Drug Administration. Test Performed by: [place] [address] Home Energy Inspector: Glen Bose M.D. Ph.D.; CLIA# [id number] 20 RESULT: ,03 REFERENCE VALUE Not Applicable 21 RESULT: 03:02,05:01 DQ Serologic Equivalent: 8,5 REFERENCE VALUE Not Applicable 22 These genes are permissive for celiac disease. The absence of HLA celiac permissive genes would make the presence of celiac disease unlikely. However, these genes can also be present in the normal population. ADDITIONAL INFORMATION Method: Molecular typing of HLA antigens performed using reverse SSOP and/or SSP methods, reported as serological equivalents and low to medium resolution molecular values. Test Performed by: [facility] - [address] [address] Home Energy Inspector: Glen Bose M.D. Ph.D.; CLIA# [id number] 23 REFERENCE VALUE <4.0 (Negative) Test Performed by: [place] [address] [place] [address] Home Energy Inspector: Glen Bose M.D. Ph.D.; CLIA# [id number] 24 Negative serology. Celiac disease unlikely. However, approximately 10% of patients with celiac disease are seronegative. Also, patients who are already adhering to a gluten-free diet may be seronegative. If celiac disease is highly clinically suspected, consider HLA-DQ typing. Test Performed by: [facility] [address] [place] [address] Home Energy Inspector: Glen Bose M.D. Ph.D.; CLIA# [id number] 25 Total 25-Hydroxyvitamin D2 and D3 (25-OH-VitD) <10 ng/mL (severe deficiency) 10-19 ng/mL (mild to moderate deficiency) 20-50 ng/mL (optimum levels) 51-80 ng/mL (increased risk of hypercalciuria) >80 ng/mL (toxicity possible) 26 REFERENCE VALUE Not Applicable 27 RESULT: HLA-B27 antigen was not detected. ADDITIONAL INFORMATION Method: Flow Cytometry Test Performed by: [place] [address] Home Energy Inspector: Glen Bose M.D. Ph.D.; CLIA# [id number] 28 Test Performed by: [place] [address] Home Energy Inspector: Glne Bose M.D. Ph.D.; CLIA# [id number] Procedures Date Code Description Status 02/04/2019 11069 Chemodenervation Of Muscles Innervated By Facial Completed Nerves, Bilat 10/29/2018 50952 Chemodenervation Of Muscles Innervated By Facial Completed Nerves, Bilat 05/29/2018 [id number] Mammogram Completed 11/03/2012 [id number] Mammogram Completed Medical Devices Description No Information Available Encounters Type Date Location Provider Dx Diagnosis Office Visit 04/01/2019 [facility] Ilana Dyson MD Z80.0 Family history of 11:00a [facility] malignant neoplasm of digestive organs G44.89 Other headache syndrome F43.21 Adjustment disorder with depressed mood 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 A60.00 Herpesviral infection of urogenital system, unspecified Office Visit 03/25/2019 4:00p Rheumatology Shabbir Nolasco, R76.0 Raised antibody [facility] Gianna titer M50.30 Other cervical disc degeneration, unsp cervical region R68.84 Jaw pain Office Visit 03/04/2019 11:00a Rheumatology Shabbir Nolasco R53.83 Other fatigue [facility] A69.20 Lyme disease, unspecified R79.82 Elevated C-reactive protein (CRP) M79.10 Myalgia, unspecified site M25.519 Pain in unspecified shoulder M54.6 Pain in thoracic spine M54.2 Cervicalgia Office Visit 12/24/2018 1:00p [facility] R53.83 Other fatigue Infectious Lind, SALES MERCHANDISING SPECIALIST Diseases M25.50 Pain in unspecified joint Office Visit 11/12/2018 [facility] M54.81 Occipital 10:30a Clinic Gianna Rodriguez neuralgia Office Visit 10/29/2018 [facility] G43.119 Migraine with 10:30a Clinic Gianna Rodriguez aura, intractable, without status migrainosus Assessments Date Code Description Provider 04/10/2019 Z80.0 Family history of cancer of colon Ilana Dyson MD 04/10/2019 E89.41 Symptomatic postprocedural ovarian Ilana Dyson MD failure 04/10/2019 M50.30 Other cervical disc degeneration, Ilana Dyson MD unspecified cervical region 04/10/2019 E03.9 Hypothyroidism, unspecified Ilana Dyson MD 04/10/2019 R76.8 Anti-nuclear factor positive Ilana Dyson MD 04/01/2019 Z80.0 Family history of malignant neoplasm Ilana Dyson MD of digestive organs 04/01/2019 G44.89 Other headache syndrome Ilana Dyson MD 04/01/2019 F43.21 Adjustment disorder with depressed Ilana Dyson MD mood 04/01/2019 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 03/25/2019 M50.30 Other cervical disc degeneration, Shabbir Nolasco M.D. unspecified cervical region 03/25/2019 R68.84 Jaw pain Shabbir Nolasco M.D. 03/04/2019 R53.83 Other fatigue Shabbir Nolasco M.D. 03/04/2019 A69.20 Lyme disease, unspecified Shabbir Nolasco M.D. 03/04/2019 R79.82 Elevated C-reactive protein (CRP) Shabbir Nolasco M.D. 03/04/2019 M79.10 Myalgia, unspecified site Shabbir Nolasco M.D. 03/04/2019 M25.519 Pain in unspecified shoulder Shabbir Nolasco M.D. 03/04/2019 M54.6 Pain in thoracic spine Shabbir Nolasco M.D. 03/04/2019 M54.2 Cervicalgia Shabbir Nolasco M.D. 02/04/2019 G43.119 Migraine with aura, intractable, Tasia Rodriguez M.D. without status migrainosus 12/24/2018 R53.83 Other fatigue Jennifer Lind, SALES MERCHANDISING SPECIALIST 12/24/2018 M25.50 Pain in unspecified joint Jennifer Lind, SALES MERCHANDISING SPECIALIST 11/12/2018 M54.81 Occipital neuralgia Tasia Rodriguez M.D. 10/29/2018 G43.119 Migraine with aura, intractable, Tasia Rodriguez M.D. without status migrainosus Plan of Treatment Future Appointment(s):06/01/2019 11:30 am - Il[facility] MD at [facility]08/12/2019 10:30 am - Tasia Rodriguez M.D. at [facility] [id number]/13/2019 10:30 am - Tasia Rodriguez M.D. at [facility] [id number] - Ilana Dyson MDZ80.0 Family history of cancer of hdruoR26.41 Symptomatic postprocedural ovarian failureNew Medication:Estradiol 0.05 mg/24HR - apply twice weekly to lower lwnrstU71.30 Other cervical disc degeneration, unspecified cervical rzfkinB68.9 Hypothyroidism, unspecifiedFollow up:f/u already scheduled for next visit; she should schedule CPE that is due 08/06/2019 , will order labsprior to CPE; next visit general follow up of all issues.R76.8 Anti-nuclear factor positive Functional Status Description No Information Available Mental Status Description No Information Available Referrals Refer to Reason for Referral Status Appt Date Tito Calderon MD Created [address] [place] [address] [phone] Shabbir Nolasco MD 48 yo female with PMH significant for hx Lyme Sent disease, migraines. She continues to have fatigue, generalized joint pain, and headaches. She was treated for Lyme this summer. [address] [place] [address] [place] [address] [phone]
--- OUTSIDE RECORDS SUMMARY | 2019-04-20 20:18 | XMS REPORT | Continuity of Care Document ---
:1970 External Reference #:[id number] Author Name Ilana Dyson MD (transmitted by agent of provider Milly Beltrán) Address [address] [facility], [place] [address] Care Team Providers Name Role Phone Ilana Dyson MD - Family Medicine Care Team Information Project Scientist [phone] Problems Active Problems Provider Date Refractory migraine Tasia Rodriguez M.D. Onset: 03/29/2014 Family history of cancer of colon Ilana Dyson MD Onset: 04/01/2019 Major depressive disorder, single Jennifer Lind NP Onset: 2017 episode, unspecified Hypothyroidism Jennifer Lind NP Onset: 09/08/2017 Epilepsy Jennifer Lind NP Onset: 09/08/2017 Visual discomfort Kaiden Mandujano M.D.,FACP Onset: 09/07/2017 Cellulitis of left upper limb Kaiden Mandujano M.D.,FACP Onset: 09/07/2017 Headache Kaiden Mandujano M.D.,FACP Onset: 09/07/2017 Acute lyme disease Onset: 11/13/2018 Pneumonia Onset: 03/18/2002 Endometriosis of uterus Onset: 03/18/2004 History of total hysterectomy Onset: 12/16/2008 Disorders of urogenital prostheses or Onset: 03/18/2009 implants Postsurgical menopause Onset: 03/18/2009 Neuralgia Onset: 08/24/2009 Adhesive capsulitis of shoulder Onset: 10/23/2014 Seasonal allergic rhinitis Onset: 03/02/2015 Fibrocystic disease of breast Onset: 03/02/2015 Chronic recurrent major depressive Onset: 03/02/2015 disorder Shoulder pain Onset: 03/02/2015 Neck pain Onset: 03/02/2015 Cobalamin deficiency Onset: 03/02/2015 Fatigue Onset: 03/02/2015 Chronic headache disorder Onset: 03/02/2015 Adverse reaction to drug Onset: 03/02/2015 Recurrent genital Herpes simplex type Onset: 03/02/2015 2 infection Bipolar II disorder Onset: 03/28/2015 Hormone replacement therapy Onset: 08/25/2015 Disability Onset: 01/05/2016 Atrophic vaginitis Onset: 08/08/2016 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 Muscle spasm of cervical muscle of Onset: 11/13/2018 neck Polymyalgia Onset: 11/13/2018 Social History Type Date Description Comments Sex Unknown Tobacco Use Start: Unknown End: Former Cigarette Smoker Unknown 1-5 Cigarettes Daily Smoking Status Reviewed: 03/25/19 Former Cigarette Smoker 1-5 Cigarettes Daily ETOH Use Denies alcohol use Tobacco Use Start: Unknown End: Patient is a former 1 cigarette per day, Unknown smoker quit 2009 Recreational Drug Use Denies Drug Use Allergies, Adverse Reactions, Alerts Active Allergies Reaction [...] 02/04/2019 anxiety,sleeplessnes s Cyclobenzaprine Headache Moderate 03/18/2019 Medications Active Medications SIG Qnty Indications Ordering Provider Date Famciclovir Take 1 tablet by 60tabs B00.1 Jennifer Arshad 09/24/2018 250mg mouth twice Lind, [employer] Tablets daily Imitrex Statdose inject at the [address] [place] [address] [facility], 12/14/2015 System onset of M.D. 4mg/0.5ML migraine, may Solution Auto-Inject repeat after 1 hour if needed; max 2/day and max 2days/week Progesterone/Testost qd Sharlene, 10/12/2013 MICKI Porter 15mg/2mg Cream Oxycodone-Acetaminop Take One Tablet Unknown hen By Mouth Every 6 10-325mg Tablets Hours as Needed Folate And Vitamin once weekly Unknown B12 400-1000 Lamotrigine 1 tablet once a Unknown 100mg day Tablets Vivelle-Dot change patch Unknown twice per week 0.075mg/24HR Patches Biweek L-Lysine HCL twice daily Unknown 1000mg Tablets Alprazolam prn Unknown 0.25mg Tablets N-Qjoity-R-Cysteine once a day Unknown 400 MG Magnesium Oxide -MG 1 by mouth every Unknown Supplement day 400mg Capsules Levothyroxine Sodium 1 by mouth every Unknown day 50mcg Tablets Fioricet/Codeine take one Unknown capsule/tablet 84-620-14-30mg daily by mouth Capsules as needed for headaches Promethazine HCL 1-2 by mouth 60tabs Tasia Rodriguez, 25mg every 8 hours as M.D. Tablets needed Vitamin D-3 1 tab po daily 8tabs Unknown 5000Unit in winter prn Tablets [place] 3 1 po qd. 100caps Unknown 1000mg Capsules Probiotic Daily PO qd Sharlene, MICKI Hernández Capsules Testorone Cream Apply 3mg Sharlene, 2mg topically hs MICKI Hernández Medications Administered in Office Medication SIG Qnty Indications Ordering Provider Date Injection Onabotulinumtoxin A, Shellie Rodriguez M.D. 02/04/2019 Unit Injection Injection Onabotulinumtoxin A, 1 Tasia Rodriguez M.D. 10/29/2018 Unit Injection Injection Onabotulinumtoxin A, Shellie Rodriguez M.D. 07/16/2018 Unit Injection Injection Onabotulinumtoxin A, Shellie Rodriguez M.D. 04/09/2018 Unit Injection Injection Onabotulinumtoxin A, Shellie Rodriguez M.D. 01/01/2018 Unit Injection Injection Onabotulinumtoxin A, Shellie Rodriguez M.D. 09/25/2017 Unit Injection Injection Onabotulinumtoxin A, 1 Tasia Rodriguez M.D. 06/19/2017 Unit Injection Injection Onabotulinumtoxin A, 1 Tasia Rodriguez M.D. 03/20/2017 Unit Injection Injection Onabotulinumtoxin A, 1 Tasia Rodriguez M.D. 12/05/2016 Unit Injection Injection Onabotulinumtoxin A, 1 Tasia Rodriguez M.D. 08/29/2016 Unit Injection Injection Onabotulinumtoxin A, 1 Tasia Rivera, [employer] MECH[employer]IC 02/17/2016 Unit Injection Injection Onabotulinumtoxin A, 1 Tasia Rodriguez M.D. 10/19/2015 Unit Injection Injection Onabotulinumtoxin A, 1 Tasia Rodriguez M.D. 07/18/2015 Unit Injection Injection Onabotulinumtoxin A, 1 Tasia Rodriguez M.D. 04/18/2015 Unit Injection Injection Onabotulinumtoxin A, 1 Yoli Lama, [employer]CH[employer]IC 01/10/2015 Unit Injection Injection Onabotulinumtoxin A, 1 Yoli Lama, [employer] E[employer]MENT MECH[employer]IC 10/06/2014 Unit Injection Injection Onabotulinumtoxin A, 1 Yoli Lama, [employer] MECH[employer]IC 07/14/2014 Unit Injection Injection Onabotulinumtoxin A, 1 [...] CPT Code Status Date Vaccine Lot # [id number] Given 07/25/2017 Tdap - Tetanus/Diptheria/Acellular Pertussis [id number] Given 07/16/1997 Hepatitis B [facility] For Intramuscular Use Vital Signs Date Vital Result Comment 04/01/2019 11:09am Height 66 inches 5'6" Weight 130.00 lb Heart Rate 80 /min BP Systolic 104 mmHg BP Diastolic 70 mmHg Body Temperature 97.0 F O2 % BldC Oximetry 97 % BMI (Body Mass Index) 21.0 kg/m2 03/25/2019 4:29pm Height 66 inches 5'6" Weight 130.00 lb Heart Rate 61 /min BP Systolic Sitting 120 mmHg BP Diastolic Sitting 80 mmHg Pain Level 6 O2 % BldC Oximetry 98 % BMI (Body Mass Index) 21.0 kg/m2 Results Test Acquired Date Facility Test Result H/L Range Note Ssa/SSB Abs 03/04/2019 [facility] SS-A/Ro Antibody <0.2 U 1 [address] [place] [address] [phone] SS-B/La Antibody <0.2 U 2 Laboratory test 03/04/2019 [facility] T3 Free 4.20 pg/mL High 2.5-3.[address] [place] [address] [phone] Anca AB Ser If 03/04/2019 [facility] C-[place] [address] [phone] P-Anca Negative Negative 3 Laboratory test 03/04/2019 [facility] Rheumatoid < 10 IU/mL Normal <[address] [place] [address] [phone] Cyclic Citrullinated Pep Igg <15.6 U 4 Nuclear AB 03/04/2019 [facility] Nuclear Ab Positive 1:160 Abnormal 5 (Zee) By Ifa (Zee) by Ifa, [place] [address] IgG [phone] Zee Titer: 1:160 Zee Pattern: Homogeneous 6 Laboratory 03/04/2019 [facility] Thyroperoxidase AB 4.59 Normal <9 test finding IU/[place] [address] [phone] Vitamin B12 03/04/2019 [facility] Vitamin B12 549 pg/mL Normal 180-9 7 And Folate 14 [place] [address] [phone] Folic Acid (Folate) 18.32 ng/mL >3.99 Immunoglobulins 03/04/2019 [facility] Immunoglobulin G 1090 767 - 8 Serum Quant mg/dL [address] [place] [address] [phone] Immunoglobulin M 135 mg/dL 37 - 286 Immunoglobulin A 95 mg/dL 61 - 356 CBC Auto 03/04/2019 [facility] White Blood 4.8 10^3/uL Normal 3.5-10.[address] [place] [address] [phone] Red Blood Count 4.24 10^6/uL Normal 3.70-4.87 [...] Blood Cells % 0.1 Tick-Borne Panel 03/04/2019 [facility] Babesia Negative Negative PCR Blood [address] [place] [address] [phone] Babesia ducani Negative Negative Babesia divergens/Mo-1 Negative Negative 9 Anaplasma phagocytophilum Negative Negative Ehrlichia chaffeensis Negative Negative Ehrlichia ewingii/canis Negative Negative Ehrlichia muris eauclairensis Negative Negative 10 B. miyamotoi PCR, B Negative Negative 11 Laboratory test 03/04/2019 [facility] C Reactive < 1.00 Normal <8.[address] Protein mg/[place] [address] [phone] Creatine Kinase(CK) 99 U/L Normal 10-223 Celiac Hla 03/04/2019 [facility] Hla-Dqa1 SEE BELOW [address] [place] [address] [phone] Hla-DQB1 SEE BELOW 13 Celiac Gene Pairs Present? Yes Celiac Gene Interpretation See Comment 14 Celiac Panel 03/04/2019 [facility] Tissue Transglutaminase <1.2 U/mL [address] [place] [address] [phone] Immunoglobulin A 101 mg/dL 61 - 356 Celiac Interpretation See Comment 16 Laboratory test 03/04/2019 [facility] Vitamin D 48.6 ng/mL Normal 20-[address] Total 25(Oh) [place] [address] [phone] Magnesium 2.5 mg/dL Normal 1.9-2.7 Erythrocyte Sed Rate 1 mm/Hr Normal 0-19 Hla B27 03/04/2019 [facility] Hla B27 Negative [address] [place] [address] [phone] Hla B27 Interp See Comment 19 Laboratory 03/04/2019 [facility] Aldolase 3.7 U/L <7.7 20 test finding [address] [place] [address] [phone] Laboratory 12/24/2018 [facility] C Reactive < 1.00 Normal < 8.01 test finding [address] Protein mg/[place] [address] [phone] lyme disease 12/18/2018 N2N/CCD Import IgG positive [...] % 0.1 1 REFERENCE VALUE <1.0 (Negative) 2 REFERENCE VALUE <1.0 (Negative) Test Performed by: [facility] [employer] [facility] [address] [place] [address] Recreation Clerk: Glen Bose M.D. Ph.D.; CLIA# [id number] 3 Negative for cANCA and pANCA patterns by immunofluorescence. ADDITIONAL INFORMATION This test was developed and its performance characteristics determined by [facility] in a manner consistent with CLIA requirements. This test has not been cleared or approved by the U.S. Food and Drug Administration. Test Performed by: [facility] [place] [address] Recreation Clerk: Glen Bose M.D. Ph.D.; CLIA# [id number] 4 REFERENCE VALUE <20.0 (Negative) Test Performed by: [facility] [place] [address] Recreation Clerk: Glen Bose M.D. Ph.D.; CLIA# [id number] 5 REFERENCE VALUE <1:80 (Negative) 6 Test Performed by: [facility] [place] [address] Recreation Clerk: Glen Bose M.D. Ph.D.; CLIA# [id number] 7 Normal Range 180 to 914 Indeterminate Range 145 to 180 Deficient Range <145 8 Test Performed by: [facility] [place] [address] Recreation Clerk: Glen Bose M.D. Ph.D.; CLIA# [id number] 9 ADDITIONAL INFORMATION This test was developed and its performance characteristics determined by [facility] in a manner consistent with CLIA requirements. This test has not been cleared or approved by the U.S. Food and Drug Administration. 10 ADDITIONAL INFORMATION This test was developed and its performance characteristics determined by [facility] in a manner consistent with CLIA requirements. This test has not been cleared or approved by the U.S. Food and Drug Administration. 11 ADDITIONAL INFORMATION This test was developed and its performance characteristics determined by [facility] in a manner consistent with CLIA requirements. This test has not been cleared or approved by the U.S. Food and Drug Administration. Test Performed by: [facility] [place] [place] [address] Recreation Clerk: Glen Bose M.D. Ph.D.; CLIA# [id number] 12 RESULT: ,03 REFERENCE VALUE Not Applicable 13 RESULT: 03:02,05:01 DQ Serologic Equivalent: 8,5 REFERENCE VALUE Not Applicable 14 These genes are permissive for celiac disease. The absence of HLA celiac permissive genes would make the presence of celiac disease unlikely. However, these genes can also be present in the normal population. ADDITIONAL INFORMATION Method: Molecular typing of HLA antigens performed using reverse SSOP and/or SSP methods, reported as serological equivalents and low to medium resolution molecular values. Test Performed by: [facility] [place] [address] Recreation Clerk: Glen Bose M.D. Ph.D.; CLIA# [id number] 15 REFERENCE VALUE <4.0 (Negative) Test Performed by: [facility] [address] [place] [address] Recreation Clerk: Glen Bose M.D. Ph.D.; CLIA# [id number] 16 Negative serology. Celiac disease unlikely. However, approximately 10% of patients with celiac disease are seronegative. Also, patients who are already adhering to a gluten-free diet may be seronegative. If celiac disease is highly clinically suspected, consider HLA-DQ typing. Test Performed by: [facility] [address] [place] [address] Recreation Clerk: Glen Bose M.D. Ph.D.; CLIA# [id number] 17 Total 25-Hydroxyvitamin D2 and D3 (25-OH-VitD) <10 ng/mL (severe deficiency) 10-19 ng/mL (mild to moderate deficiency) 20-50 ng/mL (optimum levels) 51-80 ng/mL (increased risk of hypercalciuria) >80 ng/mL (toxicity possible) 18 REFERENCE VALUE Not Applicable 19 RESULT: HLA-B27 antigen was not detected. ADDITIONAL INFORMATION Method: Flow Cytometry Test Performed by: [facility] [place] [address] Recreation Clerk: Glen Bose M.D. Ph.D.; CLIA# [id number] 20 Test Performed by: [facility] [place] [address] Recreation Clerk: Glen Bose M.D. Ph.D.; CLIA# [id number] Procedures Date Code Description Status 02/04/2019 19937 Chemodenervation Of Muscles Innervated By Facial Completed Nerves, Bilat 10/29/2018 77175 Chemodenervation Of Muscles Innervated By Facial Completed Nerves, Bilat 11/03/2012 [id number] Mammogram Completed Medical Devices Description No Information Available Encounters Type Date Location Provider Dx Diagnosis Office Visit 03/25/2019 Rheumatology Shabbir Nolasco, R76.0 Raised antibody 4:00p [facility] Katz titer M50.30 Other cervical disc degeneration, unsp cervical region R68.84 Jaw pain Office Visit 03/04/2019 11:00a Rheumatology Shabbir Nolasco, R53.83 Other fatigue [facility] Gianna A69.20 Lyme disease, unspecified R79.82 Elevated C-reactive protein (CRP) M79.10 Myalgia, unspecified site M25.519 Pain in unspecified shoulder M54.6 Pain in thoracic spine M54.2 Cervicalgia Office Visit 12/24/2018 1:00p [facility] Jennifer Jeancarlos R53.83 Other fatigue Infectious Diogo [employer]CH[employer] Diseases M25.50 Pain in unspecified joint Office 11/12/2018 [facility] T[facility] Rodriguez, M54.81 Occipital Visit 10:30a [facility] neuralgia Office 10/29/2018 [facility] T[facility] Rodriguez, G43.119 Migraine with Visit 10:30a Clinic [facility] aura, intractable, without status migrainosus Office 10/06/2018 [facility] A69.20 Lyme disease, [facility] 2:[facility] Diogo, SOUND E[employer] MECHANIC B00.1 Herpesviral vesicular dermatitis Assessments Date Code Description Provider 04/01/2019 Z80.0 Family history of cancer of colon Ilana Dyson MD 04/01/2019 A60.00 Recurrent genital Herpes simplex type Ilana Dyson MD 2 infection 04/01/2019 G44.89 Chronic headache disorder Ilana Dyson MD 03/25/2019 R76.0 Raised antibody titer Shabbir Nolasco [...] migrainosus 12/24/2018 R53.83 Other fatigue Jennifer Lind, HANH 12/24/2018 M25.50 Pain in unspecified joint Jennifer Lind, HANH 11/12/2018 M54.81 Occipital neuralgia Tasia Rodriguez M.D. 10/29/2018 G43.119 Migraine with aura, intractable, Tasia Rodriguez M.D. without status migrainosus 10/06/2018 A69.20 Lyme disease, unspecified Jennifer Lind, HANH 10/06/2018 B00.1 Herpesviral vesicular dermatitis Jennifer Lind NP Plan of Treatment Future Appointment(s):06/01/2019 11:30 am - Ilana Dyson MD at [facility]08/12/2019 10:30 am - Tasia Rodriguez M.D. at [facility] [id number]/13/2019 10:30 am - Tasia Rodriguez M.D. at [facility] [id number] - Ilana Dyson MDZ80.0 Family history of cancer of colonReferral:Tito Calderon MD, GastroenterologyFollow up:2 kmjcmyP05.00 Recurrent genital Herpes simplex type 2 [id number] Chronic headache disorder Functional Status Description No Information Available Mental Status Description No Information Available Referrals Refer to Dr Reason for Referral Status Appt Date Tito Calderon MD [facility] [address] [facility] [place] [address] [phone] Shabbir Nolasco MD 48 yo female with PMH significant for hx Lyme Sent disease, migraines. She continues to have fatigue, generalized joint pain, and headaches. She was treated for Lyme this summer. [address] [facility] [place] [address] [phone]
--- OUTSIDE RECORDS SUMMARY | 2019-04-20 20:18 | XMS REPORT | Continuity of Care Document ---
:1970 External Reference #:[id number] Author Name Shabbir Nolasco M.D. (transmitted by agent of provider Sarah Nava) Address [address] [place] [id number] Care Team Providers Name Role Phone Ilana Dyson MD - Family Medicine Care Team Information Manager Merchandise [phone] Problems Active Problems Provider Date Refractory migraine Tasia Rodriguez M.D. Onset: 03/29/2014 Headache Kaiden Mandujano M.D.,FACP Onset: 09/07/2017 Major depressive disorder, single Jennifer Lind NP Onset: 2017 episode, unspecified Hypothyroidism Jennifer Lind NP Onset: 09/08/2017 Epilepsy Jennifer Lind NP Onset: 09/08/2017 Visual discomfort Kaiden Mandujano M.D.,FACP Onset: 09/07/2017 Cellulitis of left upper limb Kaiden Mandujano M.D.,FACP Onset: 09/07/2017 Acute lyme [...] Jennifer Arshad 09/24/2018 250mg mouth twice Lind, PELLET MACHINE OPERATOR Tablets daily Imitrex Statdose inject at the [address] [place] [address] Tasiagabriel Rodriguez, 12/14/2015 System onset of M.D. 4mg/0.5ML [...] 1000mg Tablets Alprazolam prn Unknown 0.25mg Tablets T-Jlhxwn-O-Cysteine once a day Unknown 400 MG Magnesium Oxide -MG 1 by mouth every Unknown Supplement day 400mg Capsules Levothyroxine Sodium 1 by mouth every Unknown day 50mcg Tablets CBD Oil As directed Unknown 25mg Capsules Fioricet/Codeine take one Unknown capsule/tablet [id number] daily by mouth Capsules as needed for headaches Promethazine HCL 1-2 by mouth 60tabs Tasia Rodriguez, 25mg every 8 hours as M.D. Tablets needed Vitamin D-3 1 tab po daily 8tabs Unknown 5000Unit in winter prn Tablets Mouthcard 3 1 po qd. 100caps Unknown 1000mg Capsules Probiotic Daily PO qd Sharlene, MICKI Hernández Capsules Testorone Cream Apply 3mg Sharlene, 2mg topically hs MICKI Hernández History Medications Doxycycline Hyclate 1 capsule by farhad Arshad 09/29/2018 - mouth twice a HANH Lind 10/28/2018 100mg Capsules day Medications Administered in [...] Injection Injection Onabotulinumtoxin A, 1 Tasia Rivera, PELLET MACHINE OPERATOR 02/17/2016 Unit Injection Injection Onabotulinumtoxin A, 1 Tasia Rodriguez M.D. 10/19/2015 Unit Injection Injection Onabotulinumtoxin A, 1 Tasia Rodriguez M.D. 07/18/2015 Unit Injection Injection Onabotulinumtoxin A, 1 Tasia Rodriguez M.D. 04/18/2015 Unit Injection Injection Onabotulinumtoxin A, 1 Yoli Lama, PELLET MACHINE OPERATOR 01/10/2015 Unit Injection Injection Onabotulinumtoxin A, 1 Yoli Lama, PELLET MACHINE OPERATOR 10/06/2014 Unit Injection Injection Onabotulinumtoxin A, 1 Yoli Lama, PELLET MACHINE OPERATOR 07/14/2014 Unit Injection Injection Onabotulinumtoxin A, 1 [...] CPT Code Status Date Vaccine Lot # [id number] Given 07/25/2017 Tdap - Tetanus/Diptheria/Acellular Pertussis 50822 Given 07/16/1997 Hepatitis B Herrera Adoles For Intramuscular Use Vital Signs Date Vital Result Comment 03/25/2019 4:29pm Height 66 inches 5'6" Weight 130.00 lb Heart Rate 61 /min BP Systolic Sitting 120 mmHg BP Diastolic Sitting 80 mmHg Pain Level 6 O2 % BldC Oximetry 98 % BMI (Body Mass Index) 21.0 kg/m2 03/04/2019 11:41am Height 66 inches 5'6" Weight 132.00 lb Heart Rate 72 /min BP Systolic Sitting 120 mmHg BP Diastolic Sitting 68 mmHg Body Temperature 97.9 F O2 % BldC Oximetry 98 % BMI (Body Mass Index) 21.3 kg/m2 Results Test Acquired Date Facility Test Result H/L Range Note Ssa/SSB Abs 03/04/2019 [facility] SS-A/Ro Antibody <0.[address] [place] [address] [phone] SS-B/La Antibody <0.2 U 2 Laboratory test 03/04/2019 [facility] T3 Free 4.20 pg/mL High 2.5-3.[address] [place] [address] [phone] Anca AB Ser If 03/04/2019 [facility] C-Anca Negative Negative DRIVE [place], [place] [id number] [phone] P-Anca Negative Negative 3 Laboratory test 03/04/2019 [facility] Rheumatoid < 10 IU/mL Normal <15 [place] [address] [phone] Cyclic Citrullinated Pep Igg <15.6 U 4 Nuclear AB 03/04/2019 [facility] Nuclear Ab Positive 1:160 Abnormal 5 (Abner) By Ifa (Abner) by Ifa, [place] [address] IgG [phone] Abner Titer: 1:160 Abner Pattern: Homogeneous 6 Laboratory 03/04/2019 [facility] Thyroperoxidase AB 4.59 Normal <9 test finding IU/[place] [address] [phone] Vitamin B12 03/04/2019 [facility] Vitamin B12 549 pg/mL Normal 180-9 7 And Folate 14 [place] [address] [phone] Folic Acid (Folate) 18.32 ng/mL >3.99 Immunoglobulins 03/04/2019 [facility] Immunoglobulin G 1090 767 - 8 Serum Quant mg/dL [address] [place] [address] [phone] Immunoglobulin M 135 mg/dL 37 - 286 Immunoglobulin A 95 mg/dL 61 - 356 CBC Auto 03/04/2019 [facility] White Blood 4.8 10^3/uL Normal 3.5-10.8 [place] [address] [phone] Red Blood Count 4.24 10^6/uL Normal 3.70-4.87 [...] Blood Cells % 0.1 Tick-Borne Panel 03/04/2019 [facility] Babesia Negative Negative PCR Blood [address] [place] [address] [phone] Babesia ducani Negative Negative Babesia divergens/Mo-1 Negative Negative 9 Anaplasma phagocytophilum Negative Negative Ehrlichia chaffeensis Negative Negative Ehrlichia ewingii/canis Negative Negative Ehrlichia muris eauclairensis Negative Negative 10 B. miyamotoi PCR, B Negative Negative 11 Laboratory test 03/04/2019 [facility] C Reactive < 1.00 Normal <8.[address] Protein mg/[place] [address] [phone] Creatine Kinase(CK) 99 U/L Normal 10-223 Laboratory test finding 03/04/2019 [facility] Aldolase 3.7 U/L <7.[address] [place] [address] [phone] Hla B27 03/04/2019 [facility] Hla B27 Negative [address] [place] [address] [phone] Hla B27 Interp See Comment 14 Celiac Hla 03/04/2019 [facility] Hla-Dqa1 SEE BELOW [address] [place] [address] [phone] Hla-DQB1 SEE BELOW 16 Celiac Gene Pairs Present? Yes Celiac Gene Interpretation See Comment 17 Celiac Panel 03/04/2019 [facility] Tissue Transglutaminase <1.2 U/mL [address] [place] [address] [phone] Immunoglobulin A 101 mg/dL 61 - 356 Celiac Interpretation See Comment 19 Laboratory test 03/04/2019 [facility] Vitamin D 48.6 ng/mL Normal 20-50 [address] Total 25(Oh) [place] [address] [phone] Magnesium 2.5 mg/dL Normal 1.9-2.7 Erythrocyte Sed Rate 1 mm/Hr Normal 0-19 Laboratory 12/24/2018 [facility] C Reactive < 1.00 mg/L Normal <8.01 test finding [address] [place] [address] [phone] lyme disease 12/18/2018 N2N/CCD Import IgG positive [...] % nucleated red blood cells % 0.1 CBC Auto 09/24/2018 [facility] White Blood 7.0 10^3/uL Normal 3.5-10.[address] Count [place], [place] [address] [phone] Red Blood Count 4.46 10^6/uL Normal 3.70-4.87 [...] Blood Cells % 0.0 Comp Metabolic 09/24/2018 [facility] Sodium 139 mmol/L Normal 135-145 Panel [address] [place] [address] [phone] Potassium 4.2 mmol/L Normal 3.5-5.0 Chloride 102 [...] Egfr Non- 81.6 >60 Egfr 98.7 >60 21 Laboratory test 09/24/2018 [facility] C Reactive 10.05 mg/L High <8.01 finding [address] [place] [address] [phone] Lyme Screen W/ Reflex To WB Positive Abnormal Negative 22 Connective Tissue 09/24/2018 [facility] Anti-Nuclear 0.7 U 23 Panel [address] [place] [address] [phone] Cyclic Citrullinated Peptide <15.6 U 24 Interpretation See Comment 25 Lyme Disease 09/24/2018 [facility] IgG Positive Abnormal Negative AB Immunoblot [address] [place] [address] [phone] IgG detected against See Comment kDa 26 IgM Immunoblot Positive Abnormal Negative IgM detected against p41,p39,p23 kDa Lyme Disease Interpretation See Comment 27 1 REFERENCE VALUE <1.0 (Negative) 2 REFERENCE VALUE <1.0 (Negative) Test Performed by: [facility] [place] [address] Control Clerk Subassembly: Glen Bose M.D. Ph.D.; CLIA# [id number] 3 Negative for cANCA and pANCA patterns by immunofluorescence. ADDITIONAL INFORMATION This test was developed and its performance characteristics determined by [facility] in a manner consistent with CLIA requirements. This test has not been cleared or approved by the U.S. Food and Drug Administration. Test Performed by: [facility] [place] [address] Control Clerk Subassembly: Glen Bose M.D. Ph.D.; CLIA# [id number] 4 REFERENCE VALUE <20.0 (Negative) Test Performed by: [facility] [place] [address] Control Clerk Subassembly: Glen Bose M.D. Ph.D.; CLIA# [id number] 5 REFERENCE VALUE <1:80 (Negative) 6 Test Performed by: [facility] [place] [address] Control Clerk Subassembly: Glen Bose M.D. Ph.D.; CLIA# [id number] 7 Normal Range 180 to 914 Indeterminate Range 145 to 180 Deficient Range <145 8 Test Performed by: [facility] [place] [address] Control Clerk Subassembly: Glen Bose M.D. Ph.D.; CLIA# [id number] 9 ADDITIONAL INFORMATION This test was developed and its performance characteristics determined by [facility] in a manner consistent with CLIA requirements. This test has not been cleared or approved by the U.S. Food and Drug Administration. 10 ADDITIONAL INFORMATION This test was developed and its performance characteristics determined by [facility] in a manner consistent with CLIA requirements. This test has not been cleared or approved by the U.S. Food and Drug Administration. 11 ADDITIONAL INFORMATION This test was developed and its performance characteristics determined by [facility] in a manner consistent with CLIA requirements. This test has not been cleared or approved by the U.S. Food and Drug Administration. Test Performed by: [facility] [place] [address] Control Clerk Subassembly: Glen Bose M.D. Ph.D.; CLIA# [id number] 12 Test Performed by: [facility] [place] [address] Control Clerk Subassembly: Glen Bose M.D. Ph.D.; CLIA# [id number] 13 REFERENCE VALUE Not Applicable 14 RESULT: HLA-B27 antigen was not detected. ADDITIONAL INFORMATION Method: Flow Cytometry Test Performed by: [facility] [place] [address] Control Clerk Subassembly: Glen Bose M.D. Ph.D.; CLIA# [id number] 15 RESULT: 01,03 REFERENCE VALUE Not Applicable 16 RESULT: 03:02,05:01 DQ Serologic Equivalent: 8,5 REFERENCE VALUE Not Applicable 17 These genes are permissive for celiac disease. The absence of HLA celiac permissive genes would make the presence of celiac disease unlikely. However, these genes can also be present in the normal population. ADDITIONAL INFORMATION Method: Molecular typing of HLA antigens performed using reverse SSOP and/or SSP methods, reported as serological equivalents and low to medium resolution molecular values. Test Performed by: [place] [address] Control Clerk Subassembly: Glen Bose M.D. Ph.D.; CLIA# [id number] 18 REFERENCE VALUE <4.0 (Negative) Test Performed by: [facility] [address] [place] [address] Control Clerk Subassembly: Glen Bose M.D. Ph.D.; CLIA# [id number] 19 Negative serology. Celiac disease unlikely. However, approximately 10% of patients with celiac disease are seronegative. Also, patients who are already adhering to a gluten-free diet may be seronegative. If celiac disease is highly clinically suspected, consider HLA-DQ typing. Test Performed by: [facility] [address] [place] [address] Control Clerk Subassembly: Glen Bose M.D. Ph.D.; CLIA# [id number] 20 Total 25-Hydroxyvitamin D2 and D3 (25-OH-VitD) <10 ng/mL (severe deficiency) 10-19 ng/mL (mild to moderate deficiency) 20-50 ng/mL (optimum levels) 51-80 ng/mL (increased risk of hypercalciuria) >80 ng/mL (toxicity possible) 21 Because ethnic data is not always readily [...] 15-29 5 Kidney failure <15 (or dialysis) 22 Sent to reference laboratory for confirmatory testing. 23 REFERENCE VALUE <=1.0 (Negative) 24 REFERENCE VALUE <20.0 (Negative) 25 Tests for antibodies to dsDNA and LOUANN antigens are not performed automatically unless the ABNER result is > or = 3.0 U. Studies performed at [facility] indicate that positive ABNER results <3.0 U are rarely accompanied by positive second order tests. Test Performed by: [facility] - [address] [address] 26 RESULT: p66,p45,p41,p39,p23,p18 27 Consistent with active or previous infection for [...] 30 days of symptoms. Test Performed by: [facility] - [address] [address] Procedures Date Code Description Status 02/04/2019 63727 Chemodenervation Of Muscles Innervated By Facial Completed Nerves, Bilat 10/29/2018 07006 Chemodenervation Of Muscles Innervated By Facial Completed Nerves, Bilat 11/03/2012 [id number] Mammogram Completed Medical Devices Description No Information Available Encounters Type Date Location Provider Dx Diagnosis Office Visit 03/04/2019 [facility] Shabbir Nolasco R53.83 Other fatigue 11:00a Of Tona Katz A69.20 Lyme disease, unspecified R79.82 Elevated C-reactive protein (CRP) M79.10 Myalgia, unspecified site M25.519 Pain in unspecified shoulder M54.6 Pain in thoracic spine M54.2 Cervicalgia Office Visit 12/24/2018 1:00p [facility] Jennifer Arshad R53.83 Other fatigue Infectious Lind, PELLET MACHINE OPERATOR Diseases M25.50 Pain in unspecified joint Office 11/12/2018 [facility] Tasia Rodriguez, M54.81 Occipital Visit 10:30a Clinic M.D. neuralgia Office 10/29/2018 [facility] Tasia Rodriguez G43.119 Migraine with Visit 10:30a Clinic M.D. aura, intractable, without status migrainosus Office 10/06/2018 [facility] A69.20 Lyme disease, Visit 2:30p Infectious Diseases Jeancarlos unspecified HANH Lind B00.1 Herpesviral vesicular dermatitis Office Visit 09/24/2018 2:00p [facility] Jennifer Arshad R51 Headache Infectious Diseases HANH Lind M25.50 Pain in unspecified joint B00.1 Herpesviral vesicular dermatitis A69.20 Lyme disease, unspecified Assessments Date Code Description Provider 03/25/2019 R76.0 Raised antibody titer Shabbir Nolasco [...] status migrainosus 12/24/2018 R53.83 Other fatigue Jennifer Lind NP 12/24/2018 M25.50 Pain in unspecified joint Jennifer Lind NP 11/12/2018 M54.81 Occipital neuralgia Tasia Rodriguez M.D. 10/29/2018 G43.119 Migraine with aura, intractable, Tasia Rodriguez M.D. without status migrainosus 10/06/2018 A69.20 Lyme disease, unspecified Jennifer Lind, PELLET MACHINE OPERATOR 10/06/2018 B00.1 Herpesviral vesicular dermatitis Jennifer Lind, PELLET MACHINE OPERATOR 09/24/2018 R51 Headache Jennifer Lind, PELLET MACHINE OPERATOR 09/24/2018 M25.50 Pain in unspecified joint Jenniferjerome Arshad Lind, PELLET MACHINE OPERATOR 09/24/2018 B00.1 Herpesviral vesicular dermatitis Jennifer Arshad Lind, PELLET MACHINE OPERATOR 09/24/2018 A69.20 Lyme disease, unspecified Jennifer Jeancarlos Lind NP Plan of Treatment Future Appointment(s):04/01/2019 11:00 am - Ilana Dyson MD at [facility]08/12/2019 10:30 am - Tasia Rodriguez M.D. at [id number]/13/2019 10:30 am [facility] - Shabbir Nolasco M.D.R76.0 Raised antibody titerFollow up:Follow up as needed based on lab ahgcjinD58.30 Other cervical disc degeneration, unspecified cervical regionNew Therapy:Physical BbwbinsK32.84 Jaw pain Functional Status Description No Information Available Mental Status Description No Information Available Referrals Refer to Reason for Referral Status Appt Date Shabbir Nolasco MD 48 yo female with PMH significant for hx Lyme Sent / disease, migraines. She continues to have fatigue, generalized joint pain, and headaches. She was treated for Lyme this summer. [address] [place] [address] [place] [address] [place] [address] [phone]
--- OUTSIDE RECORDS SUMMARY | 2019-04-20 20:18 | XMS REPORT | Continuity of Care Document ---
:1970 External Reference #:[id number] Author Name Shabbir Nolasco M.D. 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 4mg/0.5ML migraine, [...] 1000mg Tablets Alprazolam prn Unknown 0.25mg Tablets R-Yugheu-U-Cysteine once a day Unknown 400 MG Magnesium Oxide -MG 1 by mouth every Unknown Supplement day 400mg Capsules Levothyroxine Sodium 1 by mouth every Unknown day 50mcg Tablets CBD Oil As directed Unknown 25mg Capsules Fioricet/Codeine take one Unknown capsule/tablet [id number] daily by mouth Capsules as needed for headaches Promethazine HCL 1-2 by mouth 60tabs Tasia Rodriguez, 25mg every 8 hours as M.D. Tablets needed Vitamin D-3 1 tab po daily 8tabs Unknown 5000Unit in winter prn Tablets [place] 3 1 po qd. 100caps Unknown 1000mg Capsules Probiotic Daily PO qd Sharlene, MICKI Hernández Capsules Testorone Cream Apply 3mg Sharlene, 2mg topically hs MCIKI Hernández History Medications Doxycycline Hyclate 1 capsule by Aracelianita Rodriguez Jeancarlos 09/29/2018 - mouth twice a Lind, [employer]UCATIONAL ADMINISTRATION TEACHER 10/28/2018 100mg Capsules day Medications Administered in [...] Unit Injection Injection Onabotulinumtoxin A, 1 Tasia Rivera NP 02/17/2016 Unit Injection Injection Onabotulinumtoxin A, 1 Tasia Rodriguez M.D. 10/19/2015 Unit Injection Injection Onabotulinumtoxin A, 1 Tasia Rodriguez M.D. 07/18/2015 Unit Injection Injection Onabotulinumtoxin A, 1 Tasia Rodriguez M.D. 04/18/2015 Unit Injection Injection Onabotulinumtoxin A, 1 Yoli Lama NP 01/10/2015 Unit Injection Injection Onabotulinumtoxin A, 1 Yoli Lama, EDUCATIONAL ADMINISTRATION TEACHER 10/06/2014 Unit Injection Injection Onabotulinumtoxin A, 1 Yoli Lama, EDUCATIONAL ADMINISTRATION TEACHER 07/14/2014 Unit Injection Injection Onabotulinumtoxin A, 1 [...] Available Vital Signs Date Vital Result Comment 03/04/2019 11:41am Height 66 inches 5'6" Weight 132.00 lb Heart Rate 72 /min BP Systolic Sitting 120 mmHg BP Diastolic Sitting 68 mmHg Body Temperature 97.9 F O2 % BldC Oximetry 98 % BMI (Body Mass Index) 21.3 kg/m2 02/04/2019 10:17am Height 66 inches 5'6" Weight 133.75 lb Heart Rate 88 /min BP Systolic Sitting 102 mmHg BP Diastolic Sitting 78 mmHg Respiratory Rate 16 /min BMI (Body Mass Index) 21.6 kg/m2 Results Test Acquired Facility Test Result H/L Range Note Date Laboratory 03/04/2019 [facility] T3 Free 4.20 High 2.5-3.9 test finding [address] pg/[place] [address] [phone] Laboratory 03/04/2019 [facility] Thyroperoxidase AB 4.59 Normal <9 test finding [address] IU/[place] [address] [phone] Nuclear AB (Abner) By Ifa Igg <pending> Rheumatoid Factor < 10 IU/mL Normal <15 Cyclic Citrullinated Pep Igg <pending> Vitamin B12 03/04/2019 [facility] Vitamin B12 549 pg/mL Normal 180-914 [address] Folate [address] [place] [address] [phone] Folic Acid (Folate) 18.32 ng/mL >3.99 Laboratory test 03/04/2019 [facility] Vitamin D 48.6 ng/mL Normal 20-[address] Total 25(Oh) [place] [address] [phone] Magnesium 2.5 mg/dL Normal 1.9-2.7 Erythrocyte Sed Rate 1 mm/Hr Normal 0-19 Hla B27 <pending> Aldolase <pending> Laboratory test 03/04/2019 [facility] C Reactive < 1.00 Normal <8.[address] Protein mg/[place] [address] [phone] Creatine Kinase(CK) 99 U/L Normal 10-223 CBC Auto 03/04/2019 [facility] White Blood 4.8 10^3/uL Normal 3.5-10.[address] [place] [address] [phone] Red Blood Count 4.24 10^6/uL Normal 3.70-4.87 [...] % Nucleated Red Blood Cells % 0.1 Laboratory test 12/24/2018 [facility] C Reactive < 1.00 Normal <8.[address] Protein mg/[place] [address] [phone] CBC Auto Diff 09/24/2018 [facility] White Blood 7.0 Normal 3.5 -10.[address] Count 10^3/[place] [address] [phone] Red Blood Count 4.46 10^6/uL Normal 3.70-4.87 [...] Blood Cells % 0.0 Comp Metabolic 09/24/2018 [facility] Sodium 139 mmol/L Normal 135-145 Panel [address] [place] [address] [phone] Potassium 4.2 mmol/L Normal 3.5-5.0 Chloride 102 [...] Egfr Non- 81.6 >60 Egfr 98.7 >60 3 Laboratory test 09/24/2018 [facility] C Reactive 10.05 mg/L High <8.[address] [place] [address] [phone] Lyme Screen W/ Reflex To WB Positive Abnormal Negative 4 Connective Tissue 09/24/2018 [facility] Anti-Nuclear Antibody 0.7 U [address] [place] [address] [phone] Cyclic Citrullinated Peptide <15.6 U 6 Interpretation See Comment 7 Lyme Disease 09/24/2018 [facility] IgG Positive Abnormal Negative AB Immunoblot [address] [place] [address] [phone] IgG detected against See Comment kDa 8 IgM Immunoblot Positive Abnormal Negative IgM detected against p41,p39,p23 kDa Lyme Disease Interpretation See Comment 9 1 Normal Range 180 to 914 Indeterminate Range 145 to 180 Deficient Range <145 2 Total 25-Hydroxyvitamin D2 and D3 (25-OH-VitD) <10 ng/mL (severe deficiency) 10-19 ng/mL (mild to moderate deficiency) 20-50 ng/mL (optimum levels) 51-80 ng/mL (increased risk of hypercalciuria) >80 ng/mL (toxicity possible) 3 Because ethnic data is not always readily [...] 15-29 5 Kidney failure <15 (or dialysis) 4 Sent to reference laboratory for confirmatory testing. 5 REFERENCE VALUE <=1.0 (Negative) 6 REFERENCE VALUE <20.0 (Negative) 7 Tests for antibodies to dsDNA and LOUANN antigens are not performed automatically unless the ABNER result is > or = 3.0 U. Studies performed at [facility] indicate that positive ABNER results <3.0 U are rarely accompanied by positive second order tests. Test Performed by: [facility] - [address] [id number] 8 RESULT: p66,p45,p41,p39,p23,p18 9 Consistent with active or previous infection for [...] 30 days of symptoms. Test Performed by: [facility] - [address] [address] Procedures Date Code Description Status 02/04/2019 54281 Chemodenervation Of Muscles Innervated By Facial Completed Nerves, Bilat 10/29/2018 51486 Chemodenervation Of Muscles Innervated By Facial Completed Nerves, Bilat 11/03/2012 [id number] Mammogram Completed Medical Devices Description No Information Available Encounters Type Date Location Provider Dx Diagnosis [facility] R53.83 Other fatigue 1:00p Infectious Diseases HANH Lind M25.50 Pain in unspecified joint Office 11/12/2018 [facility] T[facility] Rodriguez, M54.81 Occipital Visit 10:30a Vannessa Katz neuralgia Office 10/29/2018 [facility] Rodriguez, G43.119 Migraine with Visit 10:30a Vannessa Katz aura, intractable, without status migrainosus Office 10/06/2018 [facility] Jennifer A69.20 Lyme disease, Visit 2:30p Infectious Diseases Jeancarlos unspecified HANH Lind B00.1 Herpesviral vesicular dermatitis Office Visit 09/24/2018 2:00p [facility] Jennifer Arshad R51 Headache Infectious Diseases Diogo, HANH M25.50 Pain in unspecified joint B00.1 Herpesviral vesicular dermatitis A69.20 Lyme disease, unspecified Office Visit 09/16/2018 9:30a [facility] Colunga, R51 Headache Infectious Diseases M.DSuhas B00.1 Herpesviral vesicular dermatitis Assessments Date Code Description Provider 03/04/2019 R53.83 Other fatigue Shabbir Nolasco M.D. [...] M25.50 Pain in unspecified joint Jennifer Lind, EDUCATIONAL ADMINISTRATION TEACHER 11/12/2018 M54.81 Occipital neuralgia Tasia Rodriguez M.D. 10/29/2018 G43.119 Migraine with aura, intractable, Tasia Rodriguez M.D. without status migrainosus 10/06/2018 A69.20 Lyme disease, unspecified Jennifer Lind, HANH 10/06/2018 B00.1 Herpesviral vesicular dermatitis Jennifer Lind, HANH 09/24/2018 R51 Headache Jennifer Lind, EDUCATIONAL ADMINISTRATION TEACHER 09/24/2018 M25.50 Pain in unspecified joint Jennifer Lind, EDUCATIONAL ADMINISTRATION TEACHER 09/24/2018 B00.1 Herpesviral vesicular dermatitis Jennifer Lind, EDUCATIONAL ADMINISTRATION TEACHER 09/24/2018 A69.20 Lyme disease, unspecified Jennifer Lind, EDUCATIONAL ADMINISTRATION TEACHER 09/16/2018 R51 Headache Ramon Colunga M.D. 09/16/2018 B00.1 Herpesviral vesicular dermatitis Ramon Colunga M.D. Plan of Treatment Future Appointment(s):03/25/2019 4:00 pm - Shabbir Nolasco M.D. at [facility]08/12/2019 10:30 am - Tasia Rodriguez M.D. at [facility] [id number]/13/2019 10:30 am - Tasia Rodriguez M.D. at [facility] [id number] 9:30 am - Tasia Rodriguez M.D. at [facility] [id number]/04/2019 - Tasia Rodriguez M.D.G43.119 Migraine with aura, intractable, without status migrainosusFollow up:every 3 months botox (in addition to visit in March for migraine f/u) Functional Status Description No Information Available Mental Status Description No Information Available Referrals Refer to Reason for Referral Status Appt Date Shabbir Nolasco MD 48 yo female with PMH significant for hx Lyme Sent disease, migraines. She continues to have fatigue, generalized joint pain, and headaches. She was treated for Lyme this summer. [address] [facility] [address] [place], [place] [address] [phone]
--- NOTE | 2019-04-20 22:08 | ED ---
Headache - HPI Summary HPI Summary: Patient complains of usual migraine starting today. Patient states symptoms usually controlled by Fioricet and Imitrex, however occasionally Imitrex has the opposite effect and makes headache worse. Symptoms associated with nausea and vomiting. Denies fever, cough, trauma, sore throat, CP, SOB, abdominal pain , change in urine, change in BM. Followed by neurology Dr. Rogers - History Of Current Complaint Chief Complaint: EDHeadache Stated Complaint: HEADACHE PER PT AND MEDS NOT WORKING PER PT Time Seen by Provider: 04/20/19 22:02 Hx Obtained From: Patient Onset/Duration: Sudden Onset, Started hours ago Initially Headache Was: Severe Currently Pain Is: Severe Timing: Constant Character: Throbbing, Pressure, Typical Headache Location of Headache: Diffuse Aggravating Factor: Exertion, Position Change, Bright Lights Allevating Factors: Nothing Associated Signs And Symptoms: Nausea, Vomiting - Allergies/Home Medications Allergies/Adverse Reactions: Allergies Allergy/AdvReac Type Severity Reaction Status Date / Time diphenhydramine AdvReac Intermediate Numbness Verified 04/20/19 20:11 [From Benadryl] And Tingling tramadol AdvReac Intermediate Muscle Ache Verified 04/20/19 20:11 cephalexin [From Keflex] AdvReac GI Upset Verified 04/20/19 20:11 ciprofloxacin [From Cipro] AdvReac Abdominal Verified 04/20/19 20:11 Pain gabapentin [From Neurontin] AdvReac Muscle Ache Verified 04/20/19 20:11 ketorolac [From Toradol] AdvReac Muscle Ache Verified 04/20/19 20:11 morphine AdvReac MAKES Verified 04/20/19 20:11 LIMBS GO NUMB NSAIDS (Non-Steroidal AdvReac GI Upset Verified 04/20/19 20:11 Anti-Inflamma pregabalin [From Lyrica] AdvReac Muscle Ache Verified 04/20/19 20:11 Home Medications: Home Medications Estradiol [Tiff] 1 patch TOPICAL .TWICE WEEKLY 04/20/19 [History Confirmed 06/04] Levothyroxine TAB* [Synthroid TAB*] 50 mcg PO DAILY 04/20/19 [History Confirmed 04/20/19] Meloxicam(NF) [Mobic(NF)] 7.5 mg PO DAILY 04/20/19 [History Confirmed 04/20/19] lamoTRIgine TAB(*) [LaMICtal TAB(*)] 100 mg PO DAILY 04/20/19 [History Confirmed 04/20/19] PMH/Surg Hx/FS Hx/Imm Hx Endocrine/Hematology History: Reports: Hx Thyroid Disease Denies: Hx Diabetes Cardiovascular History: Denies: Hx Hypertension, Hx Pacemaker/ICD Respiratory History: Reports: Hx Asthma Denies: Hx Chronic Obstructive Pulmonary Disease (COPD) GI History: Denies: Hx Ulcer History: Reports: Other Problems/Disorders - stress incontinence Denies: Hx Renal Disease Musculoskeletal History: Denies: Hx Rheumatoid Arthritis, Hx Osteoporosis, Hx Scoliosis Sensory History: Reports: Hx Contacts or Glasses Opthamlomology History: Reports: Hx Contacts or Glasses Neurological History: Reports: Hx Headaches - migraines, Hx Migraine - Chronic, Other Neuro Impairments/Disorders - CHRONIC MIGRAINES Psychiatric History: Reports: Hx Anxiety, Hx Depression, Hx Bipolar Disorder Denies: Hx Panic Disorder - Surgical History Surgery Procedure, Year, and Place: bladder surgery, HYSTERECTOMY, LUMP REMOVED RT BREAST ATYPICAL,APPY 2006 - Immunization History Date of Tetanus Vaccine: recent Date of Influenza Vaccine: none Infectious Disease History: No Infectious Disease History: Denies: Hx Clostridium Difficile, Hx Hepatitis, Hx Human Immunodeficiency Virus (HIV), Hx of Known/Suspected MRSA, Hx Shingles, Hx Tuberculosis, Traveled Outside the [place] in Last 30 Days - Family History Known Family History: Positive: Non-Contributory Negative: Cardiac Disease, Diabetes - Social History Alcohol Use: None Hx Substance Use: No Substance Use Type: Reports: None Hx Tobacco Use: Yes Smoking Status (MU): Former Smoker Review of Systems Constitutional: Negative Positive: Photophobia ENT: Negative Cardiovascular: Negative Respiratory: Negative Positive: Vomiting, Nausea Genitourinary: Negative Musculoskeletal: Negative Skin: Negative Positive: Headache Psychological: Normal All Other Systems Reviewed And Are Negative: Yes Physical Exam Triage Information Reviewed: Yes Vital Signs On Initial Exam: Initial Vitals Temp Pulse Resp BP Pulse Ox 97.7 F 108 16 139/83 100 04/20/19 20:09 04/20/19 20:09 04/20/19 20:09 04/20/19 20:09 04/20/19 20:09 Vital Signs Reviewed: Yes Appearance: Positive: Well-Appearing Skin: Positive: Warm Head/Face: Positive: Normal Head/Face Inspection Eyes: Positive: Normal Neck: Positive: Supple Respiratory/Lung Sounds: Positive: Clear to Auscultation Cardiovascular: Positive: Normal Abdomen Description: Positive: Nontender Musculoskeletal: Positive: Normal Neurological: Positive: Normal Psychiatric: Positive: Normal AVPU Assessment: Alert - Kofi Coma Scale Best Eye Response: 4 - Spontaneous Best Motor Response: 6 - Obeys Commands Best Verbal Response: 5 - Oriented Coma Scale Total: 15 Procedures - Sedation Patient Received Moderate/Deep Sedation with Procedure: No Diagnostics - Vital Signs Vital Signs Temp Pulse Resp BP Pulse Ox 04/20/19 20:09 97.7 F 108 16 139/83 100 - Laboratory Lab Statement: Any lab studies that have been ordered have been reviewed, and results considered in the medical decision making process. Headache Course/Dx - Course Course Of Treatment: Patient complains of usual migraine starting today. Patient states symptoms usually controlled by Fioricet and Imitrex, however occasionally Imitrex has the opposite effect and makes headache worse. Symptoms associated with nausea and vomiting. Denies fever, cough, trauma, sore throat, CP, SOB, abdominal pain, change in urine, change in BM. Followed by neurology Dr. Rogers. Vital signs within normal limits. Symptoms controlled with Zofran, normal saline, Dilaudid IV. - Diagnoses Provider Diagnoses: Migraine Discharge ED - Sign-Out/Discharge Documenting (check all that apply): Patient Departure - Discharge Plan Condition: Stable Disposition: HOME Patient Education Materials: Migraine Headache (ED) Referrals: Ilana Decker MD [Primary Care Provider] - Additional Instructions: Follow-up with your neurologist for further management of migraines. Return to the ED for any new or worsening symptoms. - Billing Disposition and Condition Condition: STABLE Disposition: Home
[2019-04-20] MEDS ORDERED: NS 0.9% 1000 ML** 1,000 ML IV ONE (22:30)
[2019-04-20] MEDS ORDERED: HYDROmorphone INJ* 0.5 MG/0.5 ML SYRINGE IV ONE ×2 (22:30→23:51)
[2019-04-21 00:52] VITALS: BP 113/82
== END 2019-04-21 00:47 | disposition home or self-care (01) ==
LOC: ED 20:04
DX: G43.909 Migraine, unspecified, not intractable, without status migrainosus (principal); R11.2 Nausea with vomiting, unspecified; E07.9 Disorder of thyroid, unspecified; F31.9 Bipolar disorder, unspecified; Z79.899 Other long term (current) drug therapy; Z88.6 Allergy status to analgesic agent; Z88.1 Allergy status to other antibiotic agents; Z88.5 Allergy status to narcotic agent; Z88.8 Allergy status to other drugs, medicaments and biological substances; Z87.891 Personal history of nicotine dependence
CPT/HCPCS: 96361; 96374; 96376; 99283; J1170

== ENCOUNTER 2019-04-25 14:07 | Emergency (ER) | payer OTHER ==
[2019-04-25 15:37] LABS: ABS Eosinophils 0.1 10^3/ul (0-0.6); ABS Lymphocytes 2.2 10^3/ul (1.0-4.8); ABS Monocytes 0.5 10^3/ul (0-0.8); ABS Neutrophils 2.7 10^3/ul (1.5-7.7); Eosinophil % 1.7 %; Hematocrit 43 % (35-47); Hemoglobin 15.2 g/dL (12.0-16.0); Lymphocyte % 40.7 %; Mean Corpuscular HGB Conc 35 g/dL (31-36); Mean Corpuscular Hemoglobin 34 pg (27-31); Mean Corpuscular Volume 97 fL (80-97); Mean Platelet Volume 7.9 fL (7.4-10.4); Nucleated Red Blood Cells % 0.1; Platelet Count 201 10^3/uL (150-450); Red Blood Count 4.44 10^6 /uL (3.70-4.87); Red Cell Distribution Width 12 % (10-15); White Blood Count 5.5 10^3/uL (3.5-10.8)
[2019-04-25] MEDS ORDERED: Lidocaine 2% VISCOUS* 15 ML UDC PO ONE (15:43)
[2019-04-25] MEDS ORDERED: Al Hydrox/Mg Hydrox/Simet LIQ* 30 ML UDC PO ONE (15:43)
--- NOTE | 2019-04-25 15:49 | ED ---
Abdominal Pain/Female - HPI Summary HPI Summary: This patient is a 48 year old F presenting to [facility] with a chief complaint of abdominal pain and burning located at top of her stomach reported to be similar to gastritis symptoms since yesterday afternoon 04/24/19. Symptoms aggravated by nothing. Symptoms alleviated by nothing. Patient reports slight constipation, bloating, gassy. Reports she was here on Saturday 4 days ago for Paradoxical reaction to medication and was dealing with refractory migraines throughout the whole week. Yesterday afternoon had intense burning that has since come in waves and took tums every 20 minutes which was not helping. Denies n/v/d. Took Pepcid yesterday for symptoms, takes Percocet. Shx Hysterectomy, appendectomy. Medications reviewed. Allergies noted. - History of Current Complaint Chief Complaint: EDAbdPain Stated Complaint: STOMACH PAIN PER PT Time Seen by Provider: 04/25/19 15:32 Hx Obtained From: Patient Onset/Duration: Lasting Days, Still Present Timing: Constant Pain Intensity: 7 Pain Scale Used: 0-10 Numeric Character: Burning Aggravating Factor(s): Nothing Alleviating Factor(s): Nothing Associated Signs and Symptoms: Positive: Other: - constipation, bloating, gassy , migraines. Negative: Nausea, Vomiting, Diarrhea Allergies/Adverse Reactions: Allergies Allergy/AdvReac Type Severity Reaction Status Date / Time diphenhydramine AdvReac Intermediate Numbness Verified 04/25/19 14:11 [From Benadryl] And Tingling tramadol AdvReac Intermediate Muscle Ache Verified 04/25/19 14:11 cephalexin [From Keflex] AdvReac GI Upset Verified 04/25/19 14:11 ciprofloxacin [From Cipro] AdvReac Abdominal Verified 04/25/19 14:11 Pain gabapentin [From Neurontin] AdvReac Muscle Ache Verified 04/25/19 14:11 ketorolac [From Toradol] AdvReac Muscle Ache Verified 04/25/19 14:11 morphine AdvReac MAKES Verified 04/25/19 14:11 LIMBS GO NUMB NSAIDS (Non-Steroidal AdvReac GI Upset Verified 04/25/19 14:11 Anti-Inflamma pregabalin [From Lyrica] AdvReac Muscle Ache Verified 04/25/19 14:11 PMH/Surg Hx/FS Hx/Imm Hx Endocrine/Hematology History: Reports: Hx Thyroid Disease Denies: Hx Diabetes Cardiovascular History: Denies: Hx Hypertension, Hx Pacemaker/ICD Respiratory History: Reports: Hx Asthma Denies: Hx Chronic Obstructive Pulmonary Disease (COPD) GI History: Denies: Hx Ulcer History: Reports: Other Problems/Disorders - stress incontinence Denies: Hx Renal Disease Musculoskeletal History: Denies: Hx Rheumatoid Arthritis, Hx Osteoporosis, Hx Scoliosis Sensory History: Reports: Hx Contacts or Glasses Opthamlomology History: Reports: Hx Contacts or Glasses Neurological History: Reports: Hx Headaches - migraines, Hx Migraine - Chronic, Other Neuro Impairments/Disorders - CHRONIC MIGRAINES Psychiatric History: Reports: Hx Anxiety, Hx Depression, Hx Bipolar Disorder Denies: Hx Panic Disorder - Surgical History Surgery Procedure, Year, and Place: bladder surgery, HYSTERECTOMY, LUMP REMOVED RT BREAST ATYPICAL,APPY 2006 - Immunization History Date of Tetanus Vaccine: recent Date of Influenza Vaccine: none Infectious Disease History: No Infectious Disease History: Reports: Traveled Outside the [place] in Last 30 Days Denies: Hx Clostridium Difficile, Hx Hepatitis, Hx Human Immunodeficiency Virus (HIV), Hx of Known/Suspected MRSA, Hx Shingles, Hx Tuberculosis - Family History Known Family History: Positive: Non-Contributory Negative: Cardiac Disease, Diabetes - Social History Alcohol Use: None Hx Substance Use: No Substance Use Type: Reports: None Hx Tobacco Use: Yes Smoking Status (MU): Former Smoker Review of Systems Positive: Abdominal Pain, Other - contstipation, gassy, bloating. Negative: Vomiting, Diarrhea, Nausea Positive: Headache - migraines All Other Systems Reviewed And Are Negative: Yes Physical Exam - Summary Physical Exam Summary: Constitutional: Well-developed, Well-nourished, Alert. (-) Distressed Skin: Warm, Dry HENT: Normocephalic; Atraumatic Eyes: Conjunctiva normal Neck: Musculoskeletal ROM normal neck. (-) JVD, (-) Stridor, (-) Tracheal deviation Cardio: Rhythm regular, rate normal, Heart sounds normal; Intact distal pulses; Radial pulses are 2+ and symmetric. (-) Murmur Pulmonary/Chest wall: Effort normal. (-) Respiratory distress, (-) Wheezes, (-) Rales Abd: RUQ tenderness, no rebound or guarding, (-) murphys sign Musculoskeletal: (-) Edema Lymph: (-) Cervical adenopathy Neuro: Alert, Oriented x3 Psych: Mood and affect Normal Triage Information Reviewed: Yes Vital Signs On Initial Exam: Initial Vitals Temp Pulse Resp BP Pulse Ox 97.8 F 93 19 128/85 98 04/25/19 14:08 04/25/19 14:08 04/25/19 14:08 04/25/19 14:08 04/25/19 14:08 Vital Signs Reviewed: Yes Procedures - Sedation Patient Received Moderate/Deep Sedation with Procedure: No Diagnostics - Vital Signs Vital Signs Temp Pulse Resp BP Pulse Ox 04/25/19 14:08 97.8 F 93 19 128/85 98 - Laboratory Lab Results: Lab Results 04/25/19 Range/Units 15:25 WBC 5.5 (3.5-10.8) 10^3/uL RBC 4.44 (3.70-4.87) 10^6 /uL Hgb 15.2 (12.0-16.0) g/dL Hct 43 (35-47) % MCV 97 (80-97) fL MCH 34 H (27-31) pg MCHC 35 (31-36) g/dL RDW 12 (10-15) % Plt Count 201 (150-450) 10^3/uL MPV 7.9 (7.4-10.4) fL Neut % (Auto) 48.2 % Lymph % (Auto) 40.7 % [place] % (Auto) 8.7 % Eos % (Auto) 1.7 % Baso % (Auto) 0.7 % Absolute Neuts (auto) 2.7 (1.5-7.7) 10^3/ul Absolute Lymphs (auto) 2.2 (1.0-4.8) 10^3/ul Absolute Monos (auto) 0.5 (0-0.8) 10^3/ul Absolute Eos (auto) 0.1 (0-0.6) 10^3/ul Absolute Basos (auto) 0.0 (0-0.2) 10^3/ul Absolute Nucleated RBC 0.0 10^3/ul Nucleated RBC % 0.1 Result Diagrams: 04/25/19 15:25 04/25/19 15:25 Lab Statement: Any lab studies that have been ordered have been reviewed, and results considered in the medical decision making process. Re-Evaluation - Re-Evaluation First Eval Re-Evaluation Time: 17:15 Comment: feels better still pain all located epigastrium Abdominal Pain Fem Course/Dx - Course Course Of Treatment: Patient is here with epigastric pain after taking ibuprofen yesterday. Patient has a history of similar reactions in the past 2 days medicines. Patient does have some epigastric tenderness but no other tenderness. Patient had lab work performed which is grossly unremarkable. Patient had some relief with viscous lidocaine and Maalox. Patient started on omeprazole, Bentyl, viscous lidocaine. Patient does not need imaging at this time given her pain location and normal labs - Diagnoses Provider Diagnoses: Epigastric pain Discharge ED - Sign-Out/Discharge Documenting (check all that apply): Patient Departure - discharge - Discharge Plan Condition: Stable Disposition: HOME Prescriptions: Dicyclomine CAP* [Bentyl CAP*] 10 mg PO TID PRN #20 cap PRN Reason: abdominal cramping Lidocaine 2% VISCOUS* [Xylocaine 2% Viscous*] 15 ml SWISH SWAL Q6H PRN #1 btl PRN Reason: reflux Referrals: Ilana Decker MD [Primary Care Provider] - 3 Days Additional Instructions: Start taking omeprazole for 2 wks and prescribed medications. Please come back for severe pain, fever, contractible vomiting or any other concerning symptoms - Billing Disposition and Condition Condition: STABLE Disposition: Home - Attestation Statements Document Initiated by Boaz: Yes Documenting Scribe: Ana Rosa Pop Provider For Whom Boaz is Documenting (Include Credential): Dr. Macario Reyes MD Scribe Attestation: Ana Rosa Curry scribed for Dr. Macario Reyes MD on 04/25/19 at 1925. Scribe Documentation Reviewed: Yes Provider Attestation: The documentation as recorded by the Ana Rosa dave accurately reflects the service I personally performed and the decisions made by me, Dr. Macario Reyes MD Status of Boaz Document: Viewed
[2019-04-25 15:54] LABS: Albumin/Globulin Ratio 1.9 (1-3); BUN/Creatinine Ratio 22.2 (8-20); Calcium 10.7 mg/dL (8.6-10.3); EGFR African American 80.9 (>60); EGFR Non-African American 66.8 (>60); Globulin 2.6 g/dL (2-4); Potassium 4.6 mmol/L (3.5-5.0); Total Bilirubin 0.3 mg/dL (0.2-1.0); Total Protein 7.6 g/dL (6.4-8.9)
[2019-04-25 16:00] LABS: HCG Pregnancy 1.09 mIU/mL
[2019-04-25] MEDS ORDERED: Dicyclomine CAP* 10 MG PO ONE (17:02)
[2019-04-25 17:26] VITALS: BP 0/0
== END 2019-04-25 17:26 | disposition home or self-care (01) ==
LOC: ED 14:07
DX: R10.13 Epigastric pain (principal); J45.909 Unspecified asthma, uncomplicated; F41.9 Anxiety disorder, unspecified; F31.9 Bipolar disorder, unspecified; Z87.891 Personal history of nicotine dependence; Z90.710 Acquired absence of both cervix and uterus; Z90.89 Acquired absence of other organs; Z88.1 Allergy status to other antibiotic agents; Z88.5 Allergy status to narcotic agent; Z88.8 Allergy status to other drugs, medicaments and biological substances
CPT/HCPCS: 36415; 80053; 83690; 84702; 85025; 99282; A9270-GY

== ENCOUNTER 2019-05-09 11:45 | Emergency (ER) | payer OTHER ==
[2019-05-09 12:04] VITALS: BP 119/69
--- NOTE | 2019-05-09 12:21 | UC ---
Respiratory Complaint HPI - HPI Summary HPI Summary: The patient is a 48-year-old asthmatic who 2 weeks ago developed coughing and wheezing while using a household supervisor bottle house cleaners. Since then she has had to use her rescue inhaler fairly frequently. She started to feel better and then 5 days ago used the supervisor bottle house cleaners again. Her symptoms worsened. She has had chest tightness some mild right-sided chest pain and wheezing since then. She has had no fever or chills. She denies any runny nose sinus congestions or sore throat. She does feel a little hoarse. She has been having some some mild clear phlegm. She has no nausea vomiting or diarrhea. - History of Current Complaint Chief Complaint: UCRespiratory Stated Complaint: EXPOSURE TO CHEMICAL,CHEST PAIN Time Seen by Provider: 05/09/19 11:50 Hx Obtained From: Patient Onset/Duration: Gradual Onset, Lasting Weeks Timing: Constant Severity Initially: Mild Severity Currently: Moderate Pain Intensity: 5 Pain Scale Used: 0-10 Numeric Character: Cough: Nonproductive Aggravating Factors: Nothing Alleviating Factors: Bronchodilator Associated Signs And Symptoms: Positive: Wheezing. Negative: Fever, Chills, Hemoptysis, Dizziness, Calf Pain, Calf Swelling, Edema, URI, Nasal Congestion, Hoarseness, Sinus Discomfort - Allergies/Home Medications Allergies/Adverse Reactions: Allergies Allergy/AdvReac Type Severity Reaction Status Date / Time diphenhydramine AdvReac Intermediate Numbness Verified 05/09/19 11:55 [From Benadryl] And Tingling tramadol AdvReac Intermediate Muscle Ache Verified 05/09/19 11:55 cephalexin [From Keflex] AdvReac GI Upset Verified 05/09/19 11:55 ciprofloxacin [From Cipro] AdvReac Abdominal Verified 05/09/19 11:55 Pain gabapentin [From Neurontin] AdvReac Muscle Ache Verified 05/09/19 11:55 ketorolac [From Toradol] AdvReac Muscle Ache Verified 05/09/19 11:55 morphine AdvReac MAKES Verified 05/09/19 11:55 LIMBS GO NUMB NSAIDS (Non-Steroidal AdvReac GI Upset Verified 05/09/19 11:55 Anti-Inflamma pregabalin [From Lyrica] AdvReac Muscle Ache Verified 05/09/19 11:55 Home Medications: Home Medications Lactobacillus Acidophilus [Probiotic] 1 cap PO DAILY #10 cap 09/06/17 [Rx Confirmed 04/25/19] Butalbit/Acetamin/Caff/Codeine [Nljdhv-Ojyt-Npmrnbniwyh-Codein] 1 - 2 cap PO Q4H PRN 09/09/17 [History Confirmed 04/25/19] Cyanocobalamin (Vitamin B-12) [Vitamin B-12] 1,000 mcg PO WEEKLY 09/09/17 [ History Confirmed 04/25/19] Famciclovir TAB(NF) [Famvir TAB(NF)] 250 mg PO BID 09/09/17 [History Confirmed 04/25/19] Promethazine 25 mg TAB [Phenergan 25 mg TAB] 25 mg PO Q6HR PRN 09/09/17 [ History Confirmed 04/25/19] SUMAtriptan succinate [Sumavel Dosepro] 1 each SQ DAILY PRN 09/09/17 [History Confirmed 04/25/19] Estradiol [Tiff] 1 patch TOPICAL .TWICE WEEKLY 04/20/19 [History Confirmed 11/04] Levothyroxine TAB* [Synthroid TAB*] 50 mcg PO DAILY 04/20/19 [History Confirmed 04/25/19] lamoTRIgine TAB(*) [LaMICtal TAB(*)] 100 mg PO DAILY 04/20/19 [History Confirmed 04/25/19] PMH/Surg Hx/FS Hx/Imm Hx Previously Healthy: Yes Respiratory History: Asthma - Surgical History Surgical History: Yes Surgery Procedure, Year, and Place: bladder surgery, HYSTERECTOMY, LUMP REMOVED RT BREAST ATYPICAL,APPY 2006 - Family History Known Family History: Positive: Non-Contributory Negative: Cardiac Disease, Diabetes - Social History Alcohol Use: None Substance Use Type: Marijuana Substance Use Comment - Amount & Last Used: rarely Smoking Status (MU): Former Smoker Household Exposure Type: Cigarettes - Immunization History Most Recent Influenza Vaccination: unknown Most Recent Pneumonia Vaccination: never Review of Systems All Other Systems Reviewed And Are Negative: Yes Constitutional: Positive: Negative Skin: Positive: Negative Eyes: Positive: Negative ENT: Positive: Negative Respiratory: Positive: Cough, Other - wheeze Cardiovascular: Positive: Chest Pain - right sided CP Gastrointestinal: Positive: Negative Genitourinary: Positive: Negative Motor: Positive: Negative Neurovascular: Positive: Negative Musculoskeletal: Positive: Negative Neurological/Mental Status: Positive: Negative Psychological: Positive: Negative Physical Exam Triage Information Reviewed: Yes Appearance: Well-Appearing, No Pain Distress, Well-Nourished Vital Signs: Initial Vital Signs Temp 98.1 F 05/09/19 11:57 Pulse 72 05/09/19 11:57 Resp 18 05/09/19 11:57 BP 119/69 05/09/19 11:57 Pulse Ox 97 05/09/19 11:57 Vital Signs Reviewed: Yes Eyes: Positive: Conjunctiva Clear ENT: Positive: Hearing grossly normal, TMs normal, Uvula midline. Negative: Nasal congestion, Nasal drainage, Tonsillar swelling, Tonsillar exudate, Trismus , Muffled voice, Hoarse voice, Sinus tenderness Dental Exam: Normal Neck: Positive: Supple, Nontender, No Lymphadenopathy Respiratory: Positive: No respiratory distress, No accessory muscle use, Wheezing - with forced expiration Cardiovascular: Positive: RRR, No Murmur Musculoskeletal: Positive: ROM Intact, No Edema Neurological: Positive: Alert Psychological Exam: Normal Skin Exam: Normal Diagnostics - Radiology No standard instances Radiology Interpretation Completed By: Radiologist Summary of Radiographic Findings: NAD Respiratory Course/Dx - Differential Dx/Diagnosis Provider Diagnosis: Bronchospasm Discharge ED - Sign-Out/Discharge Documenting (check all that apply): Patient Departure All imaging exams completed and their final reports reviewed: Yes - Discharge Plan Condition: Stable Disposition: HOME Patient Education Materials: Bronchospasm (ED) Referrals: Ilana Decker MD [Primary Care Provider] - 6 Days (if not better) - Billing Disposition and Condition Condition: STABLE Disposition: Home
== END 2019-05-09 12:50 | disposition home or self-care (01) ==
LOC: UCEAST 11:45
DX: J45.909 Unspecified asthma, uncomplicated (principal); Z88.8 Allergy status to other drugs, medicaments and biological substances; Z87.891 Personal history of nicotine dependence; Z88.1 Allergy status to other antibiotic agents; Z88.6 Allergy status to analgesic agent; Z88.5 Allergy status to narcotic agent
CPT/HCPCS: 71046; 99211; G0463

== ENCOUNTER 2020-05-24 05:19 | Observation (INO) ==
[2020-05-24] MEDS ORDERED: HYDROmorphone 1 MG/1 ML SYRINGE IV ONE ×2 (06:07→08:41)
[2020-05-24] MEDS: NS 0.9% 1000 ml BAG 1,000 ML IV ONE ×2 (06:24→07:51)
[2020-05-24] MEDS: Magnesium Sulfate 2 gm BAG 2 GM/50 ML BAG IVPB ONE ×2 (06:24→07:51)
[2020-05-24] MEDS: HYDROmorphone 0.5 MG/0.5 ML SYRINGE IV ONE ×2 (06:24→07:58)
[2020-05-24] MEDS ORDERED: HYDROmorphone 1 MG/1 ML SYRINGE IM ONE (06:41)
[2020-05-24] MEDS ORDERED: Ondansetron 4 mg VIAL 2 MG/ML 2 ml VIAL IV ONE (07:42)
[2020-05-24] MEDS ORDERED: NS 0.9% 1000 ml BAG 1,000 ML IV ONE (10:23)
[2020-05-24 10:41] LABS: ABS Lymphocytes 0.9 10^3/ul (1.0-4.8); ABS Monocytes 0.2 10^3/ul (0-0.8); ABS Neutrophils 3.7 10^3/ul (1.5-7.7); Eosinophil % 0.3 %; Hematocrit 43 % (35-47); Hemoglobin 14.8 g/dL (12.0-16.0); Lymphocyte % 18.1 %; Mean Corpuscular HGB Conc 34 g/dL (31-36); Mean Corpuscular Hemoglobin 33 pg (27-31); Mean Corpuscular Volume 96 fL (80-97); Nucleated Red Blood Cells % 0.1; Platelet Count 161 10^3/uL (150-450); Red Blood Count 4.49 10^6 /uL (3.70-4.87); Red Cell Distribution Width 12 % (10-15); White Blood Count 4.9 10^3/uL (3.5-10.8)
[2020-05-24 11:02] LABS: Albumin 4.3 g/dL (3.2-5.2); BUN/Creatinine Ratio 21.1 (8-20); Calcium 8.7 mg/dL (8.6-10.3); EGFR African American 105.9 (>60); EGFR Non-African American 87.5 (>60); Globulin 2.2 g/dL (2-4); Total Bilirubin 0.4 mg/dL (0.2-1.0); Total Protein 6.5 g/dL (6.4-8.9)
[2020-05-24] MEDS ORDERED: SUMAtriptan Subcut 6 MG/0.5 ML VIAL SUBCUT ONE (11:28)
[2020-05-24 12:56] LABS: Erythrocyte Sed Rate 0 mm/Hr (0-19)
[2020-05-24] MEDS ORDERED: HYDROmorphone 1 MG/1 ML SYRINGE IV SLOW PU ONE (13:13)
[2020-05-24 14:21] LABS: Urine Appearance Cloudy; Urine Bilirubin Negative (Negative); Urine Blood Negative (Negative); Urine Color Yellow; Urine Glucose Negative (Negative); Urine Ketones 1+ (Negative); Urine Nitrite Negative (Negative); Urine Protein Negative (Negative); Urine Specific Gravity 1.017 (1.010-1.030); Urine Urobilinogen Negative (Negative)
[2020-05-24] MEDS ORDERED: Ondansetron 4 mg VIAL 2 MG/ML 2 ml VIAL IV PRN (14:21)
[2020-05-24] MEDS ORDERED: ESTRADIOL TOPICAL ONE (14:30)
[2020-05-24] MEDS ORDERED: Prochlorperazine 5 mg/ml 2 ml VIAL (10 mg) IV PRN (14:32)
[2020-05-24 14:53] LABS: Influenza A Molecular Negative (Negative); Influenza B Molecular Negative (Negative)
[2020-05-24] MEDS ORDERED: SUMAtriptan Subcut 6 MG/0.5 ML VIAL SUBCUT PRN (15:31)
[2020-05-24] MEDS: NS 0.9% 1000 ml BAG 1,000 ML IV SCH (15:34)
[2020-05-24] MEDS ORDERED: ESTRADIOL TOPICAL SCH (17:00)
[2020-05-24] MEDS: Butalb/Acetamin/Caff TAB 325-50-40MG PO PRN (17:45)
[2020-05-24] MEDS: Valproic Acid IV 500 MG in NS 0.9% 100 ml BAG 100 ML IVPB SCH (19:39)
[2020-05-25] MEDS: NS 0.9% 1000 ml BAG 1,000 ML IV SCH (01:30)
[2020-05-25] MEDS: Valproic Acid IV 500 MG in NS 0.9% 100 ml BAG 100 ML IVPB SCH ×2 (03:13→11:51)
[2020-05-25 05:00] LABS: ABS Eosinophils 0.1 10^3/ul (0-0.6); ABS Lymphocytes 3.1 10^3/ul (1.0-4.8); ABS Monocytes 0.7 10^3/ul (0-0.8); ABS Neutrophils 3.1 10^3/ul (1.5-7.7); Eosinophil % 1.2 %; Hematocrit 40 % (35-47); Hemoglobin 13.9 g/dL (12.0-16.0); Lymphocyte % 44.2 %; Mean Corpuscular HGB Conc 35 g/dL (31-36); Mean Corpuscular Hemoglobin 33 pg (27-31); Mean Corpuscular Volume 96 fL (80-97); Mean Platelet Volume 8.1 fL (7.4-10.4); Nucleated Red Blood Cells % 0.1; Platelet Count 173 10^3/uL (150-450); Red Cell Distribution Width 13 % (10-15)
[2020-05-25 05:16] LABS: BUN/Creatinine Ratio 16.7 (8-20); Calcium 8.4 mg/dL (8.6-10.3); EGFR African American 104.2 (>60); EGFR Non-African American 86.1 (>60); Potassium 3.6 mmol/L (3.5-5.0)
[2020-05-25] MEDS: Butalb/Acetamin/Caff TAB 325-50-40MG PO PRN (08:14)
[2020-05-25] MEDS ORDERED: Fluticasone NASAL SPRAY 50MCG 16 gm SPRAY BTL BOTH NARES SCH (09:00)
[2020-05-25 12:54] VITALS: BP 141/85
== END 2020-05-25 12:50 | disposition home or self-care (01) ==
LOC: MED 05:19 → ED 05:19 → MED 16:25
PROVIDERS: ADMIT Internal Medicine; ATTEND Internal Medicine